=== PATIENT | male | born 1930 | race Caucasian/White ===

== ENCOUNTER 2017-01-28 09:25 | Emergency (ER) | payer MEDICARE ==
[2017-01-28 09:52] VITALS: RESP 17
--- NOTE | 2017-01-28 09:52 | ED ---
Extremity Problem HPI - General Chief complaint: Extremity Problem,Nontraumatic Stated complaint: arm pain Time Seen by Provider: 01/28/17 09:40 Source: patient, family, RN notes reviewed Mode of arrival: wheelchair Limitations: no limitations - History of Present Illness Initial comments: Patient is an 86-year-old male presents to the emergency room for evaluation of left arm bruising and pain. Patient has a history of dementia. Patient's stated patient has railings on the side of his bed and thinks that he ran his arm into one of them. Patient's states that she noticed the bruising yesterday. Patient's states that patient has been complaining of pain all day yesterday and this morning. Patient's states that she thought patient' s arm should be evaluated. Patient's states patient takes aspirin daily. - Related Data Home Medications Medication Instructions Recorded Confirmed Aspirin EC [Ecotrin Low Dose] 81 mg PO DAILY 01/28/17 01/28/17 Filgrastim Sndz [Neupogen] 480 mcg SQ TUFR 01/28/17 01/28/17 Memantine [Namenda] 10 mg PO BID 01/28/17 01/28/17 OXcarbazepine [Trileptal] 150 mg PO BID 01/28/17 01/28/17 [place]-3 Fatty Acids/Fish Oil [Fish 1 cap PO DAILY 01/28/17 01/28/17 Oil 1,000 mg Capsule] Omeprazole [PriLOSEC] 20 mg PO AC-BID 01/28/17 01/28/17 Pravastatin Sodium [Pravachol] 40 mg PO DAILY 01/28/17 01/28/17 Tamsulosin [Flomax] 0.4 mg PO DAILY 01/28/17 01/28/17 amLODIPine [Norvasc] 5 mg PO DAILY 01/28/17 01/28/17 Allergies Allergy/AdvReac Type Severity Reaction Status Date / Time pregabalin [From Lyrica] Allergy Unknown Verified 01/28/17 10:19 Review of Systems ROS Statement: Those systems with pertinent positive or pertinent negative responses have been documented in the HPI. ROS Other: All systems not noted in ROS Statement are negative. 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 Limitations: no limitations General appearance: alert, in no apparent distress Head exam: Present: atraumatic, normocephalic, normal inspection Eye exam: Present: normal appearance ENT exam: Present: normal exam Neck exam: Present: normal inspection Respiratory exam: Present: normal lung sounds bilaterally. Absent: respiratory distress Cardiovascular Exam: Present: regular rate, normal rhythm, normal heart sounds Left Elbow exam: Present: normal inspection, full ROM. Absent: tenderness Forearm Wrist exam: Present: ecchymosis (Large area of ecchymosis over her proximal and midforearm there is a superficial hematoma noted over the area that is about 2 cm in width.) Hand Wrist exam: Present: normal inspection, full ROM. Absent: tenderness Neuro motor exam: Present: wrist extension intact, thumb opposition intact, thumb IP flexion intact, thumb adduction intact, fingers 2-5 abduction intact Vascular: Present: normal capillary refill (Capillary refill less than 2 seconds ), radial pulse (2+), ulnar pulse (2+) Back exam: Present: normal inspection Neurological exam: Present: alert, oriented X3, CN II-XII intact, normal gait Psychiatric exam: Present: normal affect, normal mood Skin exam: Present: warm, dry. Absent: rash Course Vital Signs 01/28/17 01/28/17 01/28/17 09:26 09:48 10:54 Temperature 97.2 F L 98.4 F 98.1 F Pulse Rate 60 60 63 Respiratory 18 17 17 Rate Blood Pressure 122/59 133/60 105/54 O2 Sat by Pulse 96 94 L 95 Oximetry Medical Decision Making - Medical Decision Making Patient is a 86-year-old male since emergency room for evaluation of left forearm bruising and pain. X-ray is negative for any acute findings. Patient advised to ice the area and to follow-up with primary care provider for reevaluation. Patient's states she understands everything that was discussed with her. Return parameters discussed. Case discussed with Dr. Long. - Radiology Data Radiology results: report reviewed, image reviewed Disposition Clinical Impression: Hematoma of arm Disposition: HOME SELF-CARE Condition: Good Instructions: Hematoma (ED) Additional Instructions: Apply ice on and off for 20 minutes at a time. Please follow up with primary care provider in 1-2 days. If any new symptom arises or symptoms worsen, return to ER as soon as possible. Referrals: Kelly Gong III, MD [Primary Care Provider] - 1-2 days Time of Disposition: 10:47
--- NOTE | 2017-01-28 10:08 | XR ---
EXAMINATION TYPE: XR forearm LT DATE OF EXAM: 01/28/2017 COMPARISON: NONE HISTORY: Pain Two views of the forearm demonstrate that the osseous structures appear to be . There is no acute fr acture or dislocation. Arthropathy of the radiocarpal and first carpometacarpal joint. Chondrocalcin osis noted. Small olecranon spur noted. IMPRESSION: 1. No acute fracture or dislocation
[2017-01-28 10:55] VITALS: BP 105/54; PULSE 63; TEMP 98.1
== END 2017-01-28 10:55 | disposition home or self-care (01) ==
LOC: EC 09:25
DX: S50.12XA Contusion of left forearm, initial encounter (principal); E78.5 Hyperlipidemia, unspecified; I10 Essential (primary) hypertension; I25.10 Atherosclerotic heart disease of native coronary artery without angina pectoris; K21.9 Gastro-esophageal reflux disease without esophagitis; F03.90 Unspecified dementia, unspecified severity, without behavioral disturbance, psychotic disturbance, mood disturbance, and anxiety; N42.9 Disorder of prostate, unspecified; D72.819 Decreased white blood cell count, unspecified; Z87.891 Personal history of nicotine dependence; Z79.82 Long term (current) use of aspirin; Z79.899 Other long term (current) drug therapy; Z88.8 Allergy status to other drugs, medicaments and biological substances; Z86.79 Personal history of other diseases of the circulatory system; X58.XXXA Exposure to other specified factors, initial encounter
CPT/HCPCS: 99283

== ENCOUNTER 2017-05-19 13:10 | Inpatient (IN) | payer MEDICARE ==
[2017-05-19] MEDS ORDERED: SODIUM CHLORIDE 0.9% 500 ML IV STA (14:23)
[2017-05-19 15:08] LABS: Basophils % (A) 0 %; CH 31.4; CHCM 29.7; Eosinophils % (A) 0 %; HCT 22.8 % (39.0-53.0); HDW 2.22; HGB 7.1 gm/dL (13.0-17.5); Hypochromasia Marked; Luc # (Auto) 0.18; Luc % (Auto) 1; Lymphocytes # (A) 0.9 k/uL (1.0-4.8); Lymphocytes % (A) 6 %; MCH 33.2 pg (25.0-35.0); MCHC 31.1 g/dL (31.0-37.0); MCV 106.6 fL (80.0-100.0); Macrocytosis Moderate; Mean Platelet Volume 8.9; Monocytes % (A) 7 %; Neutrophils # (A) 12.8 k/uL (1.3-7.7); Neutrophils % (A) 86 %; RBC 2.14 m/uL (4.30-5.90); RDW 15.2 % (11.5-15.5); WBC 14.9 k/uL (3.8-10.6)
[2017-05-19 15:15] LABS: ALT 25 U/L (21-72); AST 13 U/L (17-59); Alkaline Phosphatase 39 U/L (38-126); Amylase <30 U/L (30-110); Anion Gap 5 mmol/L; Blood Urea Nitrogen 11 mg/dL (9-20); Carbon Dioxide 11 mmol/L (22-30); Non-African American GFR(MDRD) >60 (>60 ml/min/1.73 sqM); Sodium 145 mmol/L (137-145); Total Bilirubin 0.2 mg/dL (0.2-1.3); Total Protein 2.6 g/dL (6.3-8.2)
[2017-05-19 15:20] LABS: Chloride 129 mmol/L (98-107); Potassium 1.8 mmol/L (3.5-5.1)
[2017-05-19 15:21] LABS: Calcium 3.6 mg/dL (8.4-10.2); Glucose 39 mg/dL (74-99)
[2017-05-19 15:28] LABS: Glucose,Whole Blood 83 mg/dL (75-99)
[2017-05-19 15:36] LABS: Manual Review Performed
[2017-05-19 16:02] LABS: Amorphous Sediment,Urine Occasional /hpf; Appearance,Urine Clear (Clear); Bilirubin,Urine Negative (Negative); Glucose,Urine (UA) Negative (Negative); Ketones,Urine Negative (Negative); Leukocyte Esterase,Urine Large (Negative); Mucus,Urine Moderate /hpf; Nitrite,Urine Negative (Negative); Particle Count 6117; Protein,Urine 1+ (Negative); RBC,Urine 12 /hpf (0-5); Specific Gravity,Urine 1.022 (1.001-1.035); Squamous Epithelial Cell,Urine 1 /hpf (0-4); UA Billing (MACRO vs. MICRO) MICRO; WBC,Urine 77 /hpf (0-5)
[2017-05-19 16:09] LABS: CH 32.2; CHCM 31.8; HCT 42.1 % (39.0-53.0); HDW 2.28; MCH 32.5 pg (25.0-35.0); MCHC 31.8 g/dL (31.0-37.0); MCV 102.2 fL (80.0-100.0); Macrocytosis Slight; Mean Platelet Volume 9.4; RBC 4.12 m/uL (4.30-5.90); RDW 15.6 % (11.5-15.5); WBC (Perox) 25.89
[2017-05-19 16:13] LABS: HGB 13.4 gm/dL (13.0-17.5)
[2017-05-19 16:15] LABS: WBC 25.1 k/uL (3.8-10.6)
--- NOTE | 2017-05-19 16:25 | ED ---
General Adult HPI - General Chief complaint: GI Bleed Stated complaint: Hemmorhoids Time Seen by Provider: 05/19/17 14:15 Source: patient, RN notes reviewed Mode of arrival: wheelchair Limitations: no limitations - History of Present Illness Initial comments: 86-year-old male presents emergency department with family chief complaint of rectal pain, diarrhea. Patient is complaining degrees rectally last 2 days with diagnosed with hemorrhoid and describes some pain. 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 Patient has been having nonstop stool and has had several bowel movements and basically has to wear depends at this time. Patient denies any abdominal pain but has some cramping. Patient has a history of dementia and history is mostly given by family. Patient has not been on any recent antibiotics no recent travel. Patient has had some increased confusion from his baseline. The states that he was up to 5 times last night going to the bathroom. - Related Data Home Medications Medication Instructions Recorded Confirmed Aspirin EC [Ecotrin Low Dose] 81 mg PO DAILY 01/28/17 05/19/17 Filgrastim Sndz [Neupogen] 480 mcg SQ TUFR 01/28/17 05/19/17 [place]-3 Fatty Acids/Fish Oil [Fish 1 cap PO DAILY 01/28/17 05/19/17 Oil 1,000 mg Capsule] Omeprazole [PriLOSEC] 20 mg PO AC-BID 01/28/17 05/19/17 Pravastatin Sodium [Pravachol] 40 mg PO DAILY 01/28/17 05/19/17 Tamsulosin [Flomax] 0.4 mg PO DAILY 01/28/17 05/19/17 amLODIPine [Norvasc] 5 mg PO DAILY 01/28/17 05/19/17 Coconut Oil 1 tab PO DAILY 05/19/17 05/19/17 Donepezil 23mg 23 mg PO HS 05/19/17 05/19/17 Melatonin 10 mg PO HS 05/19/17 05/19/17 Memantine [Namenda] 5 mg PO BID 05/19/17 05/19/17 Multivitamins, Thera [Multivitamin 1 tab PO DAILY 05/19/17 05/19/17 (formulary)] traZODone HCL 50 mg PO HS PRN 05/19/17 05/19/17 Allergies Allergy/AdvReac Type Severity Reaction Status Date / Time pregabalin [From Lyrica] Allergy Unknown Verified 05/19/17 14:56 Review of Systems ROS Statement: Those systems with pertinent positive or pertinent negative responses have been documented in the HPI. ROS Other: All systems not noted in ROS Statement are negative. 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 Absent: respiratory distress, wheezes, rales, rhonchi, stridor Cardiovascular Exam: Present: regular rate, normal rhythm, normal heart sounds. Absent: systolic murmur, diastolic murmur, rubs, gallop, clicks GI/Abdominal exam: Present: soft, normal bowel sounds. Absent: distended, tenderness, guarding, rebound, rigid External exam: Present: other (Stool is presents on skin and mild erythema and small hemorrhoid noted). Absent: normal external exam Skin exam: Present: warm, dry, intact, normal color. Absent: rash Course Vital Signs 05/19/17 13:17 Temperature 97 F L Pulse Rate 66 Respiratory 16 Rate Blood Pressure 134/62 O2 Sat by Pulse 97 Oximetry Medical Decision Making - Lab Data Result diagrams: 05/19/17 16:00 05/19/17 16:00 Lab Results 05/19/17 05/19/17 05/19/17 Range/Units 14:50 14:50 15:23 WBC 14.9 H (3.8-10.6) k/uL RBC 2.14 L (4.30-5.90) m/uL Hgb 7.1 L (13.0-17.5) gm/dL Hct 22.8 L (39.0-53.0) % MCV 106.6 H (80.0-100.0) fL MCH 33.2 (25.0-35.0) pg MCHC 31.1 (31.0-37.0) g/dL RDW 15.2 (11.5-15.5) % Plt Count 60 L (150-450) k/uL Neutrophils % 86 % Neutrophils % (Manual) % Band Neutrophils % % Lymphocytes % 6 % Lymphocytes % (Manual) % Monocytes % 7 % Monocytes % (Manual) % Eosinophils % 0 % Basophils % 0 % Neutrophils # 12.8 H (1.3-7.7) k/uL Neutrophils # (Manual) (1.3-7.7) k/uL Lymphocytes # 0.9 L (1.0-4.8) k/uL Lymphocytes # (Manual) (1.0-4.8) k/uL Monocytes # 1.0 (0-1.0) k/uL Monocytes # (Manual) (0-1.0) k/uL Eosinophils # 0.0 (0-0.7) k/uL Basophils # 0.0 (0-0.2) k/uL Nucleated RBCs (0-0) /100 WBC Manual Slide Review Performed Polychromasia Hypochromasia Marked Anisocytosis (manual) Macrocytosis Moderate Sodium 145 (137-145) mmol/L Potassium 1.8 L* (3.5-5.1) mmol/L Chloride 129 H* (98-107) mmol/L Carbon Dioxide 11 L (22-30) mmol/L Anion Gap 5 mmol/L BUN 11 (9-20) mg/dL Creatinine 0.45 L (0.66-1.25) mg/dL Est GFR (MDRD) Af Amer >60 (>60 ml/min/1.73 sqM) Est GFR (MDRD) Non-Af >60 (>60 ml/min/1.73 sqM) Glucose 39 L* (74-99) mg/dL POC Glucose (mg/dL) 83 (75-99) mg/dL POC Glu Nursing Unit Coordinator ID Bonnie Hercules Calcium 3.6 L* (8.4-10.2) mg/dL Total Bilirubin 0.2 (0.2-1.3) mg/dL AST 13 L (17-59) U/L ALT 25 (21-72) U/L Alkaline Phosphatase 39 (38-126) U/L Total Protein 2.6 L (6.3-8.2) g/dL Albumin 1.3 L (3.5-5.0) g/dL Amylase <30 L (30-110) U/L Lipase 11 L (23-300) U/L Urine Color Urine Appearance (Clear) Urine pH (5.0-8.0) Ur Specific [place] (1.001-1.035) Urine Protein (Negative) Urine Glucose (UA) (Negative) Urine Ketones (Negative) Urine Blood (Negative) Urine Nitrite (Negative) Urine Bilirubin (Negative) Urine Urobilinogen (<2.0) mg/dL Ur Leukocyte Esterase (Negative) Urine RBC (0-5) /hpf Urine WBC (0-5) /hpf Ur Squamous Epith Cells (0-4) /hpf Amorphous Sediment (None) /hpf Hyaline Casts (0-2) /lpf Urine Mucus (None) /hpf 05/19/17 05/19/17 05/19/17 Range/Units 15:44 16:00 16:00 WBC 25.1 H* (3.8-10.6) k/uL RBC 4.12 L (4.30-5.90) m/uL Hgb 13.4 D (13.0-17.5) gm/dL Hct 42.1 (39.0-53.0) % MCV 102.2 H (80.0-100.0) fL MCH 32.5 (25.0-35.0) pg MCHC 31.8 (31.0-37.0) g/dL RDW 15.6 H (11.5-15.5) % Plt Count 100 L D (150-450) k/uL Neutrophils % % Neutrophils % (Manual) 89 % Band Neutrophils % 4 % Lymphocytes % % Lymphocytes % (Manual) 6 % Monocytes % % Monocytes % (Manual) 2 % Eosinophils % % Basophils % % Neutrophils # (1.3-7.7) k/uL Neutrophils # (Manual) 23.30 H (1.3-7.7) k/uL Lymphocytes # (1.0-4.8) k/uL Lymphocytes # (Manual) 1.51 (1.0-4.8) k/uL Monocytes # (0-1.0) k/uL Monocytes # (Manual) 0.50 (0-1.0) k/uL Eosinophils # (0-0.7) k/uL Basophils # (0-0.2) k/uL Nucleated RBCs 0 (0-0) /100 WBC Manual Slide Review Performed Polychromasia Present Hypochromasia Anisocytosis (manual) Present Macrocytosis Slight Sodium 142 (137-145) mmol/L Potassium 4.4 (3.5-5.1) mmol/L Chloride 106 (98-107) mmol/L Carbon Dioxide 25 (22-30) mmol/L Anion Gap 11 mmol/L BUN 23 H (9-20) mg/dL Creatinine 1.07 (0.66-1.25) mg/dL Est GFR (MDRD) Af Amer >60 (>60 ml/min/1.73 sqM) Est GFR (MDRD) Non-Af >60 (>60 ml/min/1.73 sqM) Glucose 81 (74-99) mg/dL POC Glucose (mg/dL) (75-99) mg/dL POC Glu Nursing Unit Coordinator ID Calcium 9.5 (8.4-10.2) mg/dL Total Bilirubin 0.9 (0.2-1.3) mg/dL AST 37 (17-59) U/L ALT 40 (21-72) U/L Alkaline Phosphatase 118 (38-126) U/L Total Protein 6.8 (6.3-8.2) g/dL Albumin 4.3 (3.5-5.0) g/dL Amylase (30-110) U/L Lipase (23-300) U/L Urine Color Yellow Urine Appearance Clear (Clear) Urine pH 6.0 (5.0-8.0) Ur Specific [place] 1.022 (1.001-1.035) Urine Protein 1+ H (Negative) Urine Glucose (UA) Negative (Negative) Urine Ketones Negative (Negative) Urine Blood Negative (Negative) Urine Nitrite Negative (Negative) Urine Bilirubin Negative (Negative) Urine Urobilinogen 3.0 (<2.0) mg/dL Ur Leukocyte Esterase Large H (Negative) Urine RBC 12 H (0-5) /hpf Urine WBC 77 H (0-5) /hpf Ur Squamous Epith Cells 1 (0-4) /hpf Amorphous Sediment Occasional H (None) /hpf Hyaline Casts 5 H (0-2) /lpf Urine Mucus Moderate H (None) /hpf Disposition Clinical Impression: UTI (urinary tract infection), Diarrhea, Rectal pain, Confusion Disposition: ADMITTED IP TO THIS HOSP Condition: Fair Referrals: Kelly Gong III, MD [Primary Care Provider] - 1-2 days
[2017-05-19 16:39] LABS: AST 37 U/L (17-59); Alkaline Phosphatase 118 U/L (38-126); Blood Urea Nitrogen 23 mg/dL (9-20); Calcium 9.5 mg/dL (8.4-10.2); Carbon Dioxide 25 mmol/L (22-30); Chloride 106 mmol/L (98-107); Glucose 81 mg/dL (74-99); Non-African American GFR(MDRD) >60 (>60 ml/min/1.73 sqM); Total Bilirubin 0.9 mg/dL (0.2-1.3); Total Protein 6.8 g/dL (6.3-8.2)
[2017-05-19] MEDS ORDERED: LEVOFLOXACIN 750MG-D5W PMX 750 MG in DEXTROSE/WATER 1 150ML.BAG IVPB STA (16:48)
[2017-05-19 16:54] LABS: ALT 40 U/L (21-72); Anion Gap 11 mmol/L; Potassium 4.4 mmol/L (3.5-5.1); Sodium 142 mmol/L (137-145)
--- NOTE | 2017-05-19 16:57 | XR ---
EXAMINATION TYPE: XR KUB DATE OF EXAM: 05/19/2017 COMPARISON: NONE HISTORY: Abdominal pain TECHNIQUE: 2 views FINDINGS: There is no sign of intestinal obstruction or pneumoperitoneum. Fecal pattern is normal. Th ere is no sign of a mass. There are no pathologic calcifications over the kidneys. IMPRESSION: Nonacute abdomen.
[2017-05-19 17:04] LABS: Add Differential Manual Differential
[2017-05-19 17:07] LABS: Band Neutrophils % 4 %; Manual Review Performed; Nucleated Red Blood Cells 0 /100 WBC (0-0); Polychromasia Present; Total Cells Counted 200
[2017-05-19] MEDS ORDERED: NALOXONE 0.4 MG/ML 1 ML VIAL IV PRN (17:09)
[2017-05-19] MEDS ORDERED: ONDANSETRON 4 MG/2 ML VIAL IVP PRN (17:09)
[2017-05-19 19:04] VITALS: BMI 25.0
[2017-05-19] MEDS ORDERED: traZODone HCL 50 MG TAB PO PRN (22:13)
[2017-05-19] MEDS: HALOPERIDOL LACTATE 5 MG/ML 1 ML VIAL IM PRN (22:18)
[2017-05-19] MEDS: QUEtiapine 25 MG TAB PO SCH (22:18)
[2017-05-19] MEDS: LIDOCAINE 4% CREAM 5 GM TUBE TOPICAL SCH ×2 (23:31→23:33)
[2017-05-19] MEDS: MEMANTINE 5 MG TAB PO SCH (23:32)
[2017-05-19] MEDS: DONEPEZIL 10 MG TAB PO SCH (23:32)
[2017-05-20] MEDS ORDERED: NON-FORMULARY DRUG (Omega-3 Fatty Acids/Fish Oil [Fish Oil 1,000 Mg Capsule] 1 CAP) PO SCH (09:00)
[2017-05-20] MEDS: LIDOCAINE 4% CREAM 5 GM TUBE TOPICAL SCH ×7 (10:00→21:09)
[2017-05-20] MEDS: PANTOPRAZOLE 40 MG TABLET PO SCH ×2 (10:25→17:47)
[2017-05-20] MEDS: TAMSULOSIN 0.4 MG CAP.ER.24H PO SCH (10:25)
[2017-05-20] MEDS: MEMANTINE 5 MG TAB PO SCH ×2 (10:25→21:09)
[2017-05-20] MEDS: amLODIPine 5 MG TAB PO SCH (10:25)
[2017-05-20] MEDS: ASPIRIN 81 MG PO SCH (10:25)
[2017-05-20] MEDS: MULTIVITAMINS, THERA 1 EACH TAB PO SCH (10:26)
[2017-05-20] MEDS: PRAVASTATIN SODIUM 40 MG TAB PO SCH (10:26)
[2017-05-20] MEDS: HYDROcodone/APAP 5-325MG 1 EACH TAB PO PRN ×2 (11:02→19:37)
--- NOTE | 2017-05-20 16:49 | HP ---
HISTORY AND PHYSICAL DATE OF SERVICE: 05/20/17 CHIEF COMPLAINTS: Gastrointestinal bleed as well as urinary tract infection. HISTORY: This 86-year-old gentleman with a past medical history of multiple medical problems, including CAD, history of dementia, history of GERD, hypertension, hyperlipidemia, being followed by Dr. Gong in the outpatient setting, the patient was apparently noted to have been to the bathroom 35 times last night. The patient also had some GI bleed and some blood in the stool and the patient was taken to [facility] and admitted to the hospital for further evaluation and treatment. Hemoglobin was found to be 7.1, which could be an artifact because of the the next day's hemoglobin 13.2 , white count is elevated at 25.1 though. There is no history of any fever, rigors or chills. No history of any trauma. Patient unable to give a coherent history. Most of the history taken from my discussion with the daughter at the bedside at this time. There is no history of trauma. PAST MEDICAL HISTORY: 1. History of CAD. 2. History of dementia. 3. GERD. MEDICATIONS: Prior to admission include: 1. Trazodone 50 mg q.h.s. p.r.n. 2. Norvasc 5 mg daily. 3. Flomax 0.4 daily. 4. Pravachol 40 mg daily. 5. Prilosec 20 mg before meals b.i.d. 6. [place]-3 fatty acids daily. 7. Multivitamins one p.o. daily. 8. Namenda 5 mg p.o. b.i.d. 10.Neupogen 480 mcg subcu Wednesday. 11.Aricept 23 mg q.h.s. 13.Ecotrin 81 mg p.o. daily. ALLERGIES: LYRICA. FAMILY HISTORY: History of CAD, Parkinson's in the family. SOCIAL HISTORY: No history of smoking. No history of alcohol intake. REVIEW OF SYSTEMS: Could not be taken at length because the patient has dementia and mental status changes. PHYSICAL EXAM: Patient is alert and oriented times one. Pulse 53, blood pressure 130/70, respiration 20, temperature 97.4, pulse ox 98% on room air. HEENT conjunctivae normal. Oral mucosa moist. Neck is no jugular venous distention. No carotid bruit. No lymph node enlargement. Cardiovascular system: S1, S2 muffled. No S3, no S4. Respiratory : Breath sounds diminished in the bases. No rhonchi. No crackles. ABDOMEN: Soft, nontender. No mass palpable. Legs no edema. No swelling. Nervous system: Higher functions as mentioned earlier. Moves all 4 limbs. No focal motor or sensory deficits. Lymphatics: No lymph nodes palpable in the neck, axillae or groin. Skin: No ulcer, rash or bleeding. Joints: No active deforming arthropathy. LABS: Labs are at this time shows WBC 25.1 and platelets 100, sodium 40, potassium 4.4. ASSESSMENT: 1. Urinary tract infection with sepsis. 2. Change in mental status. Metabolic encephalopathy. Chronic. 3. History of gastrointestinal bleed without any overt evidence of anemia. 4. History of coronary artery disease. 5. History of gastroesophageal reflux disease. 6. Hypertension. 7. Hyperlipidemia. 8. History of coronary artery disease, coronary artery bypass grafting. 9. Leukopenia on Neupogen shots. 10.NO CODE, NO CPR, NO VENT. RECOMMENDATIONS AND DISCUSSION: In this 86-year-old gentleman who presented with multiple complex medical issues , we will monitor the patient closely. Continue the current medications, continue management and symptomatic treatment. Otherwise resume the home medications. I would recommend to continue current medications, management. Continue with broad- spectrum IV antibiotics. Follow the cultures. The patient is on Levaquin. DVT prophylaxis. Guarded prognosis because of the multiple complex medical issues and further recommendations to follow. Discussed with the family at length. We will continue to monitor. Prognosis guarded. Further recommendations to follow. See orders for further details. MMODL / IJN: [id number] / MTDD
[2017-05-20] MEDS ORDERED: LEVOFLOXACIN 750MG-D5W PMX 750 MG in DEXTROSE/WATER 1 150ML.BAG IVPB SCH (17:00)
[2017-05-20] MEDS: DONEPEZIL 10 MG TAB PO SCH (21:09)
[2017-05-20] MEDS: QUEtiapine 25 MG TAB PO SCH (21:09)
[2017-05-20] MEDS: MELATONIN 5 MG TABLET PO SCH (21:09)
[2017-05-20] MEDS: HEPARIN SODIUM,PORCINE 5,000 UNIT/ML 1 ML VIAL SQ SCH (21:09)
[2017-05-20] MEDS: HALOPERIDOL LACTATE 5 MG/ML 1 ML VIAL IM PRN (22:49)
[2017-05-21] MEDS: HALOPERIDOL LACTATE 5 MG/ML 1 ML VIAL IM PRN (03:07)
[2017-05-21] MEDS: amLODIPine 5 MG TAB PO SCH (07:29)
[2017-05-21] MEDS: HEPARIN SODIUM,PORCINE 5,000 UNIT/ML 1 ML VIAL SQ SCH ×2 (07:29→20:41)
[2017-05-21] MEDS: PANTOPRAZOLE 40 MG TABLET PO SCH ×2 (07:29→16:32)
[2017-05-21] MEDS: ASPIRIN 81 MG PO SCH (07:30)
[2017-05-21] MEDS: TAMSULOSIN 0.4 MG CAP.ER.24H PO SCH (07:30)
[2017-05-21] MEDS: LIDOCAINE 4% CREAM 5 GM TUBE TOPICAL SCH ×3 (07:30→18:36)
[2017-05-21] MEDS: MULTIVITAMINS, THERA 1 EACH TAB PO SCH (07:30)
[2017-05-21] MEDS: PRAVASTATIN SODIUM 40 MG TAB PO SCH (07:30)
[2017-05-21] MEDS: MEMANTINE 5 MG TAB PO SCH ×2 (07:30→20:41)
[2017-05-21 10:18] LABS: Basophils % (A) 0 %; CH 32.6; Eosinophils % (A) 0 %; HCT 45.2 % (39.0-53.0); HDW 2.25; HGB 13.9 gm/dL (13.0-17.5); Luc # (Auto) 0.16; Luc % (Auto) 3; Lymphocytes % (A) 20 %; MCH 31.6 pg (25.0-35.0); MCHC 30.8 g/dL (31.0-37.0); MCV 102.5 fL (80.0-100.0); Macrocytosis Slight; Mean Platelet Volume 9.5; Monocytes # (A) 0.7 k/uL (0-1.0); Monocytes % (A) 15 %; Neutrophils # (A) 2.8 k/uL (1.3-7.7); Neutrophils % (A) 60 %; RBC 4.41 m/uL (4.30-5.90); RDW 15.8 % (11.5-15.5); WBC 4.7 k/uL (3.8-10.6); WBC (Perox) 4.45
[2017-05-21 10:30] LABS: Anion Gap 16 mmol/L; Blood Urea Nitrogen 15 mg/dL (9-20); Calcium 9.1 mg/dL (8.4-10.2); Carbon Dioxide 22 mmol/L (22-30); Chloride 105 mmol/L (98-107); Glucose 103 mg/dL (74-99); Non-African American GFR(MDRD) >60 (>60 ml/min/1.73 sqM); Potassium 3.5 mmol/L (3.5-5.1); Sodium 143 mmol/L (137-145)
[2017-05-21] MEDS: FILGRASTIM-SNDZ 480 MCG/0.8 ML SYRINGE SQ SCH (12:55)
[2017-05-21] MEDS: LEVOFLOXACIN 750 MG TAB PO SCH (16:32)
[2017-05-21] MEDS ORDERED: Potassium Replacement Protocol 1 EACH MISC MISCELLANE PRN (17:16)
[2017-05-21] MEDS ORDERED: Magnesium Replacement Protocol 1 EACH MISC MISCELLANE PRN (17:18)
--- NOTE | 2017-05-21 17:26 | P.PN ---
Subjective Progress Note Date: 05/21/17 Progress Note being dictated for Dr. Hui. Interval history: This 86-year-old gentleman admitted with acute UTI with sepsis , acute metabolic encephalopathy and multiple other medical issues. Maintained on IV antibiotics. Significant clinical improvement, afebrile, WBC normalized .Confusion persist, complaining of urgency and frequency. at bedside, stating patient has significant issues with hemorrhoids, requesting surgical evaluation. Past medical history reviewed. Unable to perform review of systems given patient's confusion. Active Medications Generic Name Dose Route Start Last Admin Trade Name Freq PRN Reason Stop Dose Admin Hydrocodone Bitart/Acetaminophen 1 each 05/19/17 17:09 05/20/17 19:37 [place] 5-325 PO 1 each Q4HR PRN Administration Moderate Pain Amlodipine Besylate 5 mg 05/20/17 09:00 05/21/17 07:29 Norvasc PO 5 mg DAILY SAMMI Administration Aspirin 81 mg 05/20/17 09:00 05/21/17 07:30 Aspirin PO 81 mg DAILY SAMMI Administration Donepezil HCl 10 mg 05/19/17 22:15 05/20/17 21:09 Aricept PO 10 mg HS SAMMI Administration Filgrastim 480 mcg 05/21/17 12:00 05/21/17 12:55 Zarxio SQ 480 mcg TUFR SAMMI Administration Haloperidol Lactate 1 mg 05/19/17 21:53 05/21/17 03:07 Haldol IM 1 mg Q4HR PRN Administration Agitation or Acute Psychosis Heparin Sodium (Porcine) 5,000 unit 05/20/17 21:00 05/21/17 07:29 Heparin SQ 5,000 unit Q12HR SAMMI Administration Levofloxacin 750 mg 05/21/17 17:00 05/21/17 16:32 Levaquin PO 750 mg Q24H SAMMI Administration Lidocaine HCl 1 applic 05/19/17 18:00 05/21/17 12:55 Lmx 4 TOPICAL 05/21/17 18:01 1 applic QID SAMMI Administration Melatonin 10 mg 05/20/17 21:00 05/20/17 21:09 Melatonin PO 10 mg HS SAMMI Administration Memantine 5 mg 05/19/17 22:15 05/21/17 07:30 Namenda PO 5 mg BID SAMMI Administration Miscellaneous Information 1 each 05/21/17 17:16 Potassium Per Protocol MISCELLANE DAILY PRN Per Protocol Protocol Miscellaneous Information 1 each 05/21/17 17:18 Magnesium Per Protocol MISCELLANE DAILY PRN Per Protocol Protocol Multivitamins 1 each 05/20/17 09:00 05/21/17 07:30 Theragran PO 1 each DAILY SAMMI Administration Naloxone HCl 0.2 mg 05/19/17 17:09 Narcan IV Q2M PRN Opioid Reversal Ondansetron HCl 4 mg 05/19/17 17:09 Zofran IVP Q8HR PRN Nausea And Vomiting Pantoprazole Sodium 40 mg 05/20/17 07:30 05/21/17 16:32 Protonix PO 40 mg AC-BID SAMMI Administration Pravastatin Sodium 40 mg 05/20/17 09:00 05/21/17 07:30 Pravachol PO 40 mg DAILY SAMMI Administration Quetiapine Fumarate 25 mg 05/19/17 22:00 05/20/17 21:09 Seroquel PO 25 mg HS SAMMI Administration Tamsulosin HCl 0.4 mg 05/20/17 09:00 05/21/17 07:30 Flomax PO 0.4 mg DAILY SAMMI Administration Trazodone HCl 50 mg 05/19/17 22:13 Desyrel PO HS PRN Insomnia Objective - Vital Signs Vital signs: Vital Signs Temp 96.5 F L 05/21/17 07:00 Pulse 80 05/21/17 07:00 Resp 18 05/21/17 07:00 BP 167/86 05/21/17 07:00 Pulse Ox 94 L 05/21/17 07:00 Intake & Output 05/20/17 05/21/17 05/21/17 18:59 06:59 18:59 Output Total 55 112 Balance -55 -112 Weight 78.92 kg Output: Urine 55 Post Void Residual 112 Other: Voiding Method Toilet Toilet Toilet # Voids 20 5 5 # Bowel Movements 1 1 - Exam PHYSICAL EXAM: VITAL SIGNS: As above GENERAL: Sitting up in bed, confused, agitated HEENT: Conjunctivae normal. eyes normal. NECK: No JVD. No thyroid enlargement. No LNs CARDIOVASCULAR: S1, S2 muffled. No murmur RESPIRATION: Breath sounds diminished in the bases. No rhonchi or crackles. No bronchial breathing. ABDOMEN: Soft, nontender . No guarding. no masses palpable.Bowel sounds heard. LEGS: No edema. no swelling PSYCHIATRY: Alert and oriented -2, confused, cooperative l. NERVOUS SYSTEM: Cranial N 2-12 grossly normal. Moves all 4 limbs. Diffuse weakness No focal deficits. No sensory deficit. Skin: no ulcer no rash Joints: No active swelling. No inflammation. Lymphatic system. No LN neck axilla or groin. - Labs CBC & Chem 7: 05/21/17 08:52 05/21/17 08:52 Labs: Abnormal Lab Results - Last 24 Hours (Table) 05/21/17 05/21/17 Range/Units 08:52 08:52 MCV 102.5 H (80.0-100.0) fL MCHC 30.8 L (31.0-37.0) g/dL RDW 15.8 H (11.5-15.5) % Plt Count 108 L (150-450) k/uL Glucose 103 H (74-99) mg/dL Microbiology - Last 24 Hours (Table) 05/19/17 15:44 Urine Culture - Final Urine,Voided Assessment and Plan Plan: 1. [ Acute UTI with septic]. 2. [ Acute on chronic metabolic encephalopathy with change in mental state]. 3. Hemorrhoids]. 4. [CAD 5. [ Leukopenia on Neupogen]. Plan: Continue on current medication regime , GI and DVT prophylaxis, monitoring and symptomatic treatment. Maintain IV antibiotics. Surgical evaluation of hemorrhoids per family request. Moved patient to window bed,open blinds to facilitate orientation, improved sensorium. Close monitoring of electrolytes with repeat labs ordered for a.m. The impression and plan of care has been dictated as directed. : I performed a history and examination of this patient, discussed the same with the dictator. I agree with the dictator's note ,documented as a scribe. Any additional findings or plans will be noted.
[2017-05-21] MEDS: MELATONIN 5 MG TABLET PO SCH (20:41)
[2017-05-21] MEDS: DONEPEZIL 10 MG TAB PO SCH (20:41)
[2017-05-21] MEDS: QUEtiapine 25 MG TAB PO SCH (20:41)
[2017-05-22 08:51] LABS: Anion Gap 14 mmol/L; Blood Urea Nitrogen 16 mg/dL (9-20); CH 32.9; CHCM 32.3; Calcium 9.4 mg/dL (8.4-10.2); Carbon Dioxide 23 mmol/L (22-30); Chloride 105 mmol/L (98-107); Glucose 80 mg/dL (74-99); HCT 43.6 % (39.0-53.0); HDW 2.26; HGB 13.9 gm/dL (13.0-17.5); MCH 32.8 pg (25.0-35.0); MCV 102.5 fL (80.0-100.0); Macrocytosis Slight; Magnesium 1.8 mg/dL (1.6-2.3); Mean Platelet Volume 9.3; Non-African American GFR(MDRD) >60 (>60 ml/min/1.73 sqM); Potassium 3.7 mmol/L (3.5-5.1); RBC 4.26 m/uL (4.30-5.90); RDW 15.7 % (11.5-15.5); Sodium 142 mmol/L (137-145); WBC (Perox) 44.99
[2017-05-22 09:04] LABS: WBC 45.7 k/uL (3.8-10.6)
[2017-05-22 09:39] LABS: Add Differential Manual Differential
[2017-05-22 09:40] LABS: Band Neutrophils % 2 %; Manual Review Performed; Nucleated Red Blood Cells 0 /100 WBC (0-0); Total Cells Counted 100
[2017-05-22] MEDS: PANTOPRAZOLE 40 MG TABLET PO SCH ×2 (10:02→17:58)
[2017-05-22] MEDS: MEMANTINE 5 MG TAB PO SCH ×2 (10:03→20:47)
[2017-05-22] MEDS: MULTIVITAMINS, THERA 1 EACH TAB PO SCH (10:03)
[2017-05-22] MEDS: HEPARIN SODIUM,PORCINE 5,000 UNIT/ML 1 ML VIAL SQ SCH ×2 (10:03→20:47)
[2017-05-22] MEDS: ASPIRIN 81 MG PO SCH (10:03)
[2017-05-22] MEDS: amLODIPine 5 MG TAB PO SCH (10:03)
[2017-05-22] MEDS: PRAVASTATIN SODIUM 40 MG TAB PO SCH (10:04)
[2017-05-22] MEDS: TAMSULOSIN 0.4 MG CAP.ER.24H PO SCH (10:04)
[2017-05-22] MEDS: HYDROcodone/APAP 5-325MG 1 EACH TAB PO PRN (10:06)
[2017-05-22 11:16] LABS: CH 32.8; CHCM 32.2; HCT 42.6 % (39.0-53.0); HDW 2.27; HGB 13.7 gm/dL (13.0-17.5); MCH 32.9 pg (25.0-35.0); MCHC 32.2 g/dL (31.0-37.0); MCV 102.3 fL (80.0-100.0); Macrocytosis Slight; Mean Platelet Volume 9.5; RBC 4.16 m/uL (4.30-5.90); RDW 15.5 % (11.5-15.5)
[2017-05-22 11:17] LABS: WBC 43.8 k/uL (3.8-10.6)
[2017-05-22] MEDS ORDERED: IOHEXOL 350 MG/ML 25 ML BOTTLE (ORAL USE) PO PRN (12:24)
--- NOTE | 2017-05-22 16:54 | PN ---
PROGRESS NOTE DATE OF SERVICE: 05/22/2017 INTERVAL HISTORY: This 86-year-old gentleman who was admitted with features of UTI with sepsis also had elevated WBC. Please note the patient also receiving Neupogen. Patient also had discomfort on the rectal area and as well as hemorrhoids and GI bleed also. No chest pain. No palpitations. No fever. PHYSICAL EXAM: Confused. Pulse 82, blood pressure 130/60, respirations 16, temp 98.1, pulse ox 98% room air. HEENT: Conjunctivae normal. NECK: No jugular venous distention. CARDIOVASCULAR: S1, S2. RESPIRATORY: Breath sounds diminished in the bases. A few scattered rhonchi. ABDOMEN: Soft, nontender. NERVOUS SYSTEM: No focal deficits. LABS: WBC 43.8, MCV 102. ASSESSMENT: 1. Acute urinary tract infection with sepsis. 2. Acute on chronic metabolic encephalopathy, change in mental status. 3. Increased WBC, possibly leukocytosis in response to sepsis as well as Neupogen. 4. Hemorrhoids. 5. Coronary artery disease. 6. Leukopenia on Neupogen previously. 7. NO CODE. RECOMMENDATIONS AND DISCUSSION: I recommend to continue current medications and symptomatic treatment. I would also recommend a surgery evaluation. CT scan of the abdomen pelvis will be sought. The cultures will be noted. Guarded prognosis. Further recommendations to follow. MMODL / IJN: [id number] /
[2017-05-22] MEDS: LEVOFLOXACIN 750 MG TAB PO SCH (17:58)
--- NOTE | 2017-05-22 19:27 | CT ---
EXAMINATION TYPE: CT abdomen pelvis wo con DATE OF EXAM: 05/22/2017 COMPARISON: NONE HISTORY: 86-year-old male Patient poor historian. Abdominal pain. CT DLP: 954 mGycm. Automated exposure control for dose reduction was used. TECHNIQUE: Contiguous axial scanning of the abdomen and pelvis without IV contrast. Coronal and sagit carolyn reconstructions performed. FINDINGS: Median sternotomy wires are present. Heart is borderline enlarged without pericardial effusion. Chronic interstitial fibrotic changes and dependent atelectasis at the visualized lung bases. Small hiatal hernia. Noncontrast appearance of the liver, gallbladder, right adrenal gland, spleen, and pancreas show no g ross abnormal mobility. There is a 4.3 cm cyst posterior upper pole right kidney with adjacent punctate 2 mm nonobstructive c alculus. There is a 2.3 cm exophytic hypodense lesion from the medial lower pole right kidney with a density of 10 Hounsfield units. Nonobstructive 3 mm calculus mid pole left kidney. Indeterminate 1.6 cm left adrenal gland nodule with density of 36 Hounsfield units. 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 Mild aneurysm of upper abdominal aorta at 3.1 cm. Bilobed fusiform ectasia of the infrarenal abdominal aorta at 2.6 cm and 2.5 cm. Ectatic right common iliac artery at 1.6 cm. No dilated small bowel, free fluid, or free air. Small fatty inguinal hernia. Scattered nonenlarged and a few borderline to mildly enlarged mesenteric lymph nodes are present michelle uring up to 7 mm, axial image 62. There is moderate stool burden without pericolonic inflammatory change. There is severe rectal distention up to 9.7 cm. This has mass effect on to the prostate gland which i s displaced above the pubic symphysis and to the bladder which is pushed up against the anterior abdo reinaldo wall. There is surrounding mild fat stranding and presacral edema. There is peripheral linear a nd interrupted air located both dependently and nondependently and moderate circumferential wall thic kening at the distal sigmoid just above, axial image 121. Just above this is focal narrowing, axial i mage 120. Prostate gland is enlarged measuring 6.0 cm wide. No pelvic lymphadenopathy seen. Bones: Degenerative changes of the hips and SI joints as well as within the mid to lower lumbar spine . No osseous destructive process. IMPRESSION: 1. Impacted stool severely distending the rectum up to nearly 10 cm. This pushes the prostate gland a rai the pubic symphysis and the bladder against the anterior abdominal wall. 2. Note surrounding inflammatory changes and presacral edema. Findings could be secondary to venous c ongestion due to the degree of distention. ISCHEMIC STERCORAL COLITIS is an additional possibility du e to venous insufficiency. Peripheral air could be trapped between rectal wall and stool or could rep resent pneumatosis and careful clinical correlation is recommended. 3. After relieving the patient's fecal impaction, direct visualization is recommended to exclude neop lasm given the caliber change and moderate annular thickening of the distal sigmoid. 4. 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 5. A 2.3 cm exophytic lesion from the medial lower pole right kidney probably represents a mildly com plicated cyst. Recommend confirmation with renal ultrasound. 6. Indeterminant 1.6 cm left adrenal gland nodule. Statistically, this represents a benign adrenal ad enoma. Six-month follow-up with adrenal mass protocol CT recommended.
[2017-05-22] MEDS: MELATONIN 5 MG TABLET PO SCH (20:47)
[2017-05-22] MEDS: QUEtiapine 25 MG TAB PO SCH (20:47)
[2017-05-22] MEDS: DONEPEZIL 10 MG TAB PO SCH (20:47)
[2017-05-22] MEDS: PIPERACILLIN-TAZOBACTAM 3.375 GM in DEXTROSE/WATER 1 50ML.BAG IVPB SCH (21:22)
[2017-05-23] MEDS: PIPERACILLIN-TAZOBACTAM 3.375 GM in DEXTROSE/WATER 1 50ML.BAG IVPB SCH ×3 (05:17→19:52)
--- NOTE | 2017-05-23 07:16 | CONS ---
CONSULTATION DATE OF SERVICE: 05/22/2017 REASON FOR CONSULTATION: Leukocytosis. HISTORY OF PRESENT ILLNESS: The patient is an 86-year-old male who was brought into the ER at [facility] 05/19/2017 with chief complaints of rectal pain and diarrhea. His symptoms have been going on for what he describes as 2 days prior to visitation to the hospital. The patient subsequently was evaluated by the ER physician. The patient on arrival to the ER was afebrile. He did have elevated white count of 25,000. Patient's UA was positive. The patient has been started on Levaquin. The white count did normalize to 4.7 yesterday, however this morning was 45.7, repeat is 43.8, hence ID was consulted for further recommendation regarding recommendations. The patient remains to be afebrile. He is not a very good historian; however, he denies having any headache. No chest pain. No shortness of breath or cough. No abdominal pain. Per the RN he has not seen any low stools since she has been taking care of him since morning. However, the patient seemed to have problem with the urinary frequency as he has been going to the bathroom every half an hour with minimal amount of urine, but no hematuria has been noticed. A CT abdominal pelvis has been ordered by the admitting physician with the patient was noticed to have abnormality of the rectum with question of ischemic colitis and periphery between the rectal wall and stool some renal stones and fecal impaction. REVIEW OF SYSTEMS: CONSTITUTIONAL: Positive for weakness but no fever. EYES: No complaint. ENT: No complaint. RESPIRATORY: No complaint. CARDIOVASCULAR: No complaint. GENITOURINARY: As per HPI. GASTROINTESTINAL: As per HPI. MUSCULOSKELETAL: No complaint. INTEGUMENTARY: No complaint. PSYCHOLOGICAL: No complaint. ENDOCRINE: No complaint. NEUROLOGICAL: No complaint. PAST MEDICAL HISTORY: Significant for dementia, gastroesophageal reflux disease, coronary artery disease, hypertension, hyperlipidemia, and left breast hypertrophy. PAST SURGICAL HISTORY: Coronary bypass grafting. SOCIAL HISTORY: Remote history of smoking, no drinking or drug use. FAMILY HISTORY: No pertinent findings noticed. ALLERGIES: PREGABALIN. MEDICATIONS: Medication include the patient is currently on [place], aspirin, Aricept, Haldol, heparin, melatonin, Namenda, Theragran, Narcan, Zofran, Protonix, Levaquin, Pravachol, Seroquel, Flomax, and Desyrel. EXAMINATION: Blood pressure 154/74 with a pulse of 79. Temperature of 96.3 He is 94% on room air. General description is a elderly male lying in bed in no distress. No tachypnea or accessory muscles of respiration use. HEENT: Shows no pallor or scleral icterus. Oral mucosa membrane is dry. NECK: Trachea is central. No thyromegaly. LUNGS: Unlabored breathing. Clear to auscultation anteriorly. No wheeze or crackle. HEART: S1, S2. Regular rate and rhythm. ABDOMEN: Soft, no tenderness. No guarding or rigidity. EXTREMITIES: No edema feet. SKIN EXAMINATION: No rash or mass palpable. NEUROLOGICAL: Patient is awake, alert, oriented x2. Mood and affect normal. LABS: Hemoglobin is 13.7, white count of 43.8. His BUN is 16, creatinine 0.94. Liver enzymes are normal. Urine was positive. Stool for C diff is negative. Urine culture so far negative. DIAGNOSTIC IMPRESSION AND PLAN: Patient has significant elevated white count. Patient admitted to the hospital with rectal bleed and also has significantly positive urinalysis with some hypertrophic renal stone and significant abnormality seen of the rectal mucosa, question of possible ischemic colitis to be the likely etiology. Clinically doubt infectious diarrhea or a C diff which is already negative. No clear history of any antibiotic exposure in the recent past. PLAN: 1. Blood cultures x2 stat. 2. Discontinue Levaquin. 3. We will start the patient on Zosyn 3.375 g IV piggyback q.8 hours. 4. Await the general surgery evaluation. 5. We will follow up on the clinical condition and culture to further adjust medication if needed. Thank you for this consultation. Will follow this patient along with you. MMODL / IJN: [id number] /
[2017-05-23 07:51] LABS: Anisocytosis Slight; Basophils % (A) 0 %; CHCM 32.1; Eosinophils % (A) 0 %; HCT 43.9 % (39.0-53.0); HDW 2.28; HGB 13.7 gm/dL (13.0-17.5); Luc # (Auto) 0.26; Luc % (Auto) 2; Lymphocytes # (A) 1.3 k/uL (1.0-4.8); Lymphocytes % (A) 12 %; MCH 32.3 pg (25.0-35.0); MCHC 31.2 g/dL (31.0-37.0); MCV 103.4 fL (80.0-100.0); Macrocytosis Moderate; Mean Platelet Volume 8.9; Monocytes % (A) 10 %; Neutrophils # (A) 8.1 k/uL (1.3-7.7); Neutrophils % (A) 76 %; RBC 4.24 m/uL (4.30-5.90); RDW 16.3 % (11.5-15.5); WBC 10.7 k/uL (3.8-10.6)
[2017-05-23 08:11] LABS: Anion Gap 13 mmol/L; Blood Urea Nitrogen 19 mg/dL (9-20); Calcium 9.5 mg/dL (8.4-10.2); Carbon Dioxide 25 mmol/L (22-30); Chloride 105 mmol/L (98-107); Glucose 90 mg/dL (74-99); Non-African American GFR(MDRD) >60 (>60 ml/min/1.73 sqM); Potassium 3.5 mmol/L (3.5-5.1); Sodium 143 mmol/L (137-145)
[2017-05-23] MEDS: TAMSULOSIN 0.4 MG CAP.ER.24H PO SCH (10:48)
[2017-05-23] MEDS: PANTOPRAZOLE 40 MG TABLET PO SCH ×2 (10:48→19:11)
[2017-05-23] MEDS: PRAVASTATIN SODIUM 40 MG TAB PO SCH (10:48)
[2017-05-23] MEDS: amLODIPine 5 MG TAB PO SCH (10:48)
[2017-05-23] MEDS: MULTIVITAMINS, THERA 1 EACH TAB PO SCH (10:48)
[2017-05-23] MEDS: ASPIRIN 81 MG PO SCH (10:48)
[2017-05-23] MEDS: MEMANTINE 5 MG TAB PO SCH ×2 (10:49→19:53)
[2017-05-23] MEDS: HEPARIN SODIUM,PORCINE 5,000 UNIT/ML 1 ML VIAL SQ SCH ×2 (10:49→19:53)
--- NOTE | 2017-05-23 10:53 | P.GSCN ---
History of Present Illness Consult date: 05/23/17 Reason for Consult: Fecal impaction History of present illness: This 86-year-old male admitted to the hospitalist service. Patient sees Dr. Gong as outpatient. Patient was admitted to the hospital for UTI and increased confusion. Patient developed some rectal pain. His CAT scan shows evidence of fecal impaction. The patient's family states he is not had a bowel movement in over a week. 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, low white counts, Parkinson's Disease History of Any Multi-Drug Resistant Organisms: None Reported Past Surgical History: Coronary Bypass/CABG Past Anesthesia/Blood Transfusion Reactions: No Reported Reaction Past Psychological History: No Psychological Hx Reported Smoking Status: Former smoker Past Alcohol Use History: None Reported Past Drug Use History: None Reported - Past Family History Mother Additional Family Medical History / Comment(s): parkinson Father Family Medical History: Coronary Artery Disease (CAD) Medications and Allergies Home Medications Medication Instructions Recorded Confirmed Type Aspirin EC [Ecotrin Low Dose] 81 mg PO DAILY 01/28/17 05/19/17 History Filgrastim Sndz [Neupogen] 480 mcg SQ TUFR 01/28/17 05/19/17 History Vaughn-3 Fatty Acids/Fish Oil [Fish 1 cap PO DAILY 01/28/17 05/19/17 History Oil 1,000 mg Capsule] Omeprazole [PriLOSEC] 20 mg PO AC-BID 01/28/17 05/19/17 History Pravastatin Sodium [Pravachol] 40 mg PO DAILY 01/28/17 05/19/17 History Tamsulosin [Flomax] 0.4 mg PO DAILY 01/28/17 05/19/17 History amLODIPine [Norvasc] 5 mg PO DAILY 01/28/17 05/19/17 History Coconut Oil 1 tab PO DAILY 05/19/17 05/19/17 History Donepezil 23mg 23 mg PO HS 05/19/17 05/19/17 History Melatonin 10 mg PO HS 05/19/17 05/19/17 History Memantine [Namenda] 5 mg PO BID 05/19/17 05/19/17 History Multivitamins, Thera [Multivitamin 1 tab PO DAILY 05/19/17 05/19/17 History (formulary)] traZODone HCL 50 mg PO HS PRN 05/19/17 05/19/17 History Allergies Allergy/AdvReac Type Severity Reaction Status Date / Time pregabalin [From Lyrica] Allergy Unknown Verified 05/19/17 14:56 Surgical - Exam Vital Signs Temp Pulse Resp BP Pulse Ox 97 F L 66 16 134/62 97 05/19/17 13:17 05/19/17 13:17 05/19/17 13:17 05/19/17 13:17 05/19/17 13:17 - General no distress - Eyes PERRL - Respiratory normal expansion - Cardiovascular Rhythm: regular - Abdomen Abdomen soft. There is no significant tenderness. There is no rebound or guarding. Abdomen: soft - Rectum External hemorrhoids Results - Labs 05/23/17 07:17 05/23/17 07:17 Abnormal Lab Results - Last 24 Hours (Table) 05/22/17 05/23/17 Range/Units 10:29 07:17 WBC 43.8 H* 10.7 H (3.8-10.6) k/uL RBC 4.16 L 4.24 L (4.30-5.90) m/uL MCV 102.3 H 103.4 H (80.0-100.0) fL RDW 16.3 H (11.5-15.5) % Plt Count 106 L 106 L (150-450) k/uL Neutrophils # 8.1 H (1.3-7.7) k/uL Diabetes panel 05/23/17 Range/Units 07:17 Sodium 143 (137-145) mmol/L Potassium 3.5 (3.5-5.1) mmol/L Chloride 105 (98-107) mmol/L Carbon Dioxide 25 (22-30) mmol/L BUN 19 (9-20) mg/dL Creatinine 1.05 (0.66-1.25) mg/dL Glucose 90 (74-99) mg/dL Calcium 9.5 (8.4-10.2) mg/dL Calcium panel 05/23/17 Range/Units 07:17 Calcium 9.5 (8.4-10.2) mg/dL Pituitary panel 05/23/17 Range/Units 07:17 Sodium 143 (137-145) mmol/L Potassium 3.5 (3.5-5.1) mmol/L Chloride 105 (98-107) mmol/L Carbon Dioxide 25 (22-30) mmol/L BUN 19 (9-20) mg/dL Creatinine 1.05 (0.66-1.25) mg/dL Glucose 90 (74-99) mg/dL Calcium 9.5 (8.4-10.2) mg/dL Adrenal panel 05/23/17 Range/Units 07:17 Sodium 143 (137-145) mmol/L Potassium 3.5 (3.5-5.1) mmol/L Chloride 105 (98-107) mmol/L Carbon Dioxide 25 (22-30) mmol/L BUN 19 (9-20) mg/dL Creatinine 1.05 (0.66-1.25) mg/dL Glucose 90 (74-99) mg/dL Calcium 9.5 (8.4-10.2) mg/dL - Imaging CT scan - abdomen: report reviewed (Rectal fecal impaction) Assessment and Plan Plan: Fecal impaction. Patient received soapsuds enemas today. Reevaluate his fecal impaction tomorrow.
[2017-05-23] MEDS: HYDROcodone/APAP 5-325MG 1 EACH TAB PO PRN (11:00)
--- NOTE | 2017-05-23 17:22 | PN ---
PROGRESS NOTE DATE OF SERVICE: 05/23/2017 This 86-year-old gentleman who was admitted with features of UTI with possible sepsis is being closely monitored. Patient is confused. Patient complains of significant weakness also. EXAM: On exam, patient is confused. Pulse 76, blood pressure 130/79, respiration 16, temperature 98 degrees, pulse ox 94% room air. HEENT: Conjunctivae normal. NECK: No jugular venous distention. CARDIOVASCULAR: S1, S2 RESPIRATORY: Breath sounds diminished in the bases. A few rhonchi. ABDOMEN: Soft, nontender. NERVOUS SYSTEM: Diffusely weak. LAB INVESTIGATIONS: WBC 7.7, hemoglobin 13.7. ASSESSMENT: 1. Acute urinary tract infection with sepsis. 2. Acute on chronic metabolic encephalopathy with change in mental status. 3. Increased WBC possible leukocytosis response to sepsis as well as Neupogen. 4. Hemorrhoids. 5. Constipation and as well as rectal pain secondary to constipation. 6. Coronary artery disease. 7. Leukopenia on Neupogen previously. 8. NO CODE, NO CPR, NO VENT. 9. Gait dysfunction. RECOMMENDATIONS AND DISCUSSION: I recommend to continue the current management, continue symptomatic treatment. Otherwise continue the antibiotics. Continue with regimen for constipation per Surgery. Otherwise PT and OT evaluation, possible ECF rehab. Discussed at length with the at the bedside who understands and agrees. Further recommendations to follow. MMODL / IJN: [id number] /
[2017-05-23] MEDS: QUEtiapine 25 MG TAB PO SCH (19:53)
[2017-05-23] MEDS: DONEPEZIL 10 MG TAB PO SCH (19:53)
[2017-05-23] MEDS: MELATONIN 5 MG TABLET PO SCH (19:53)
--- NOTE | 2017-05-23 22:13 | PN ---
PROGRESS NOTE DATE OF SERVICE: 05/23/2017 REASON FOR FOLLOWUP: Leukocytosis, UTI and possible abdominal source. INTERVAL HISTORY: The patient is afebrile, has been breathing comfortably. His main symptom has been urinary frequency and burning. He did not have any bowel movement. Surgery has seen the patient and has been ordered. No nausea, no vomiting. EXAMINATION: Blood pressure 134/71 with a pulse of 82, temperature of 97.9, she is 92% on room air. General description is an elderly male, lying in bed, in no distress. Respiratory system unlabored breathing. Clear to auscultation anteriorly. Heart S1, S2. Regular rate and rhythm. Abdomen soft, no tenderness. LABS: Hemoglobin is 13.7, white count 10.7 with a BUN of 19, creatinine 1.05. Culture so far pending. DIAGNOSTIC IMPRESSION AND PLAN: Patient with leukocytosis. The patient did have a component of urinary tract infection and also stool impaction, possible bowel component. White count did respond to Zosyn, that will be continued. Await resolution of his constipation. Continue supportive care. MMODL / IJN: [id number] /
[2017-05-24] MEDS: PIPERACILLIN-TAZOBACTAM 3.375 GM in DEXTROSE/WATER 1 50ML.BAG IVPB SCH ×3 (04:45→22:17)
[2017-05-24] MEDS: PANTOPRAZOLE 40 MG TABLET PO SCH ×2 (08:34→17:31)
[2017-05-24] MEDS: ASPIRIN 81 MG PO SCH (08:34)
[2017-05-24] MEDS: PRAVASTATIN SODIUM 40 MG TAB PO SCH (08:34)
[2017-05-24] MEDS: amLODIPine 5 MG TAB PO SCH (08:34)
[2017-05-24] MEDS: TAMSULOSIN 0.4 MG CAP.ER.24H PO SCH (08:34)
[2017-05-24] MEDS: MEMANTINE 5 MG TAB PO SCH ×2 (08:34→22:18)
[2017-05-24] MEDS: HEPARIN SODIUM,PORCINE 5,000 UNIT/ML 1 ML VIAL SQ SCH ×2 (08:35→22:19)
[2017-05-24] MEDS: MULTIVITAMINS, THERA 1 EACH TAB PO SCH (08:40)
[2017-05-24 10:06] LABS: Basophils % (A) 0 %; CH 31.7; CHCM 31.9; Eosinophils % (A) 0 %; HCT 46.1 % (39.0-53.0); HDW 2.23; HGB 14.6 gm/dL (13.0-17.5); Luc # (Auto) 0.26; Luc % (Auto) 4; Lymphocytes # (A) 1.1 k/uL (1.0-4.8); Lymphocytes % (A) 15 %; MCH 31.7 pg (25.0-35.0); MCHC 31.6 g/dL (31.0-37.0); MCV 100.3 fL (80.0-100.0); Macrocytosis Slight; Mean Platelet Volume 8.3; Monocytes # (A) 0.7 k/uL (0-1.0); Monocytes % (A) 9 %; Neutrophils # (A) 5.3 k/uL (1.3-7.7); Neutrophils % (A) 71 %; RDW 14.8 % (11.5-15.5); WBC 7.4 k/uL (3.8-10.6); WBC (Perox) 7.14
[2017-05-24 10:26] LABS: Anion Gap 15 mmol/L; Blood Urea Nitrogen 19 mg/dL (9-20); Calcium 9.3 mg/dL (8.4-10.2); Carbon Dioxide 23 mmol/L (22-30); Chloride 103 mmol/L (98-107); Glucose 124 mg/dL (74-99); Non-African American GFR(MDRD) >60 (>60 ml/min/1.73 sqM); Potassium 3.5 mmol/L (3.5-5.1); Sodium 141 mmol/L (137-145)
--- NOTE | 2017-05-24 11:48 | P.PN ---
Subjective Progress Note Date: 05/24/17 86-year-old male seen and evaluated at bedside at bedside updated on plan of care. Patient's pleasant operative oriented to self and place. Patient had a CAT scan on admission showed evidence of fecal impaction. Family states patient hasn't had a bowel movement in over a week. Patient was given a soapsuds enema last night no positive results. Patient reportedly was experiencing rectal pain Abdomen soft bowel tones present no nausea no vomiting patients being seen by surgical service for the abnormal CAT scan for fecal impaction Objective - Vital Signs Vital signs: Vital Signs Temp 97.0 F L 05/24/17 07:00 Pulse 79 05/24/17 07:00 Resp 17 05/24/17 07:00 BP 152/90 05/24/17 07:00 Pulse Ox 92 L 05/24/17 07:00 Intake & Output 05/23/17 05/24/17 05/24/17 18:59 06:59 18:59 Intake Total 1200 Balance 1200 Intake: Oral 1200 Other: Voiding Method Toilet Bedside Commode Urinal Urinal # Voids 2 1 # Bowel Movements 1 1 - Exam Physical exam 86-year-old male sitting up in a chair pleasant oriented times to person place Lungs essentially clear adequate air movement on room air Heart S1-S2 audible regular Abdomen soft no facial grimacing with palpitation to the abdominal wall no document bowel movements after soapsuds enema given yesterday no nausea no vomiting urinating no difficulty Extremities no edema noted - Labs CBC & Chem 7: 05/24/17 08:45 05/24/17 08:45 Labs: Abnormal Lab Results - Last 24 Hours (Table) 05/24/17 05/24/17 Range/Units 08:45 08:45 MCV 100.3 H (80.0-100.0) fL Plt Count 132 L (150-450) k/uL Glucose 124 H (74-99) mg/dL Microbiology - Last 24 Hours (Table) 05/22/17 17:00 Blood Culture - Preliminary Blood No Growth after 24 hours Assessment and Plan Plan: Impression Computed tomography scan abdomen shows rectal fecal impaction present on admission Present on admission sepsis suspect due to UTI Present on admission acute metabolic encephalopathy suspect due to sepsis due to UTI History of hemorrhoids Present on admission rectal pain suspect due to fecal impaction Plan Start bowel stimulant program MiraLAX, Colace Repeat a soapsuds enema now monitor the response Further recommendations pending Will add lactulose and monitor the response The above impression and plan of care have been discussed and directed by signing physician. Laquita Vázquez nurse practitioner acting as scribe for signing physician.
[2017-05-24] MEDS: POLYETHYLENE GLYCOL 3350 17 GM POWD.PACK PO SCH (13:44)
[2017-05-24] MEDS: LACTULOSE 20 GM/30 ML CUP PO SCH ×3 (13:44→22:19)
[2017-05-24] MEDS: DOCUSATE 100 MG CAP PO SCH ×2 (13:44→22:19)
[2017-05-24] MEDS ORDERED: SENNOSIDES-DOCUSATE SODIUM 1 EACH TAB PO SCH (15:08)
--- NOTE | 2017-05-24 15:20 | P.PN ---
Subjective Progress Note Date: 05/24/17 Progress Note being dictated for Dr. Glover 05/21/17 This 86-year-old gentleman admitted with acute UTI with sepsis, acute metabolic encephalopathy and multiple other medical issues. Maintained on IV antibiotics. Significant clinical improvement, afebrile, WBC normalized .Confusion persist, complaining of urgency and frequency. at bedside, stating patient has significant issues with hemorrhoids, requesting surgical evaluation. 05/24/2017 confusion improving. Significant weakness, evaluated by PT/OT and subacute rehab recommended at discharge. CAT scan reported fecal impaction, bowel regimen in process as per surgery. Denies nausea or vomiting. Good diet intake, consuming 50%. Objective - Vital Signs Vital signs: Vital Signs Temp 97.0 F L 05/24/17 07:00 Pulse 79 05/24/17 07:00 Resp 17 05/24/17 07:00 BP 152/90 05/24/17 07:00 Pulse Ox 92 L 05/24/17 07:00 Intake & Output 05/23/17 05/24/17 05/24/17 18:59 06:59 18:59 Intake Total 1200 480 Balance 1200 480 Weight 78.92 kg Intake: Oral 1200 480 Other: Voiding Method Toilet Bedside Commode Urinal Urinal # Voids 2 1 # Bowel Movements 1 1 - Exam PHYSICAL EXAM: VITAL SIGNS: As above GENERAL: Sitting up in bed, pleasantly confused HEENT: Conjunctivae normal. eyes normal. Oral mucosa moist NECK: No JVD. No thyroid enlargement. No LNs CARDIOVASCULAR: S1, S2 muffled. No murmur RESPIRATION: Breath sounds diminished in the bases. Occasional rhonchi, no crackles. ABDOMEN: Soft, nontender . No guarding. no masses palpable.Bowel sounds heard. LEGS: No edema. no swelling PSYCHIATRY: Alert and oriented -2, confused, cooperative l. NERVOUS SYSTEM: Cranial N 2-12 grossly normal. Moves all 4 limbs. Diffuse weakness ,No focal deficits. No sensory deficit. Skin: no ulcer no rash Joints: No active swelling. No inflammation. Lymphatic system. No LN neck axilla or groin. - Labs CBC & Chem 7: 05/24/17 08:45 05/24/17 08:45 Labs: Abnormal Lab Results - Last 24 Hours (Table) 05/24/17 05/24/17 Range/Units 08:45 08:45 MCV 100.3 H (80.0-100.0) fL Plt Count 132 L (150-450) k/uL Glucose 124 H (74-99) mg/dL Microbiology - Last 24 Hours (Table) 05/22/17 17:00 Blood Culture - Preliminary Blood No Growth after 24 hours Assessment and Plan Plan: 1. [ Acute UTI with sepsis]. 2. [ Acute on chronic metabolic encephalopathy with change in mental state, improving]. 3. Constipation,Fecal impaction with rectal pain 4. Hemorrhoids]. 5. [CAD 6. [ Leukopenia on Neupogen, previously]. 7. Leukocytosis possibly related to sepsis as well as Neupogen 8. No code, no CPR, no vent 9. Gait dysfunction, DJD Plan: Continue on current medication regime , antibiotics, GI and DVT prophylaxis, monitoring,PT/OT. Constipation regimen as per surgery in progress. Discharge planning in progress to subacute rehab -preauthorization pending. The impression and plan of care has been dictated as directed. : I performed a history and examination of this patient, discussed the same with the dictator. I agree with the dictator's note ,documented as a scribe. Any additional findings or plans will be noted.
[2017-05-24] MEDS ORDERED: NA PHOS,M-B/NA PHOS,DI-BA 133 ML ENEMA RECTAL ONE (17:29)
--- NOTE | 2017-05-24 21:08 | PN ---
PROGRESS NOTE REASON FOR FOLLOWUP: UTI and possible colitis. INTERVAL HISTORY: The patient is afebrile, has been breathing comfortably. Denies any chest pain or cough. No abdominal pain. His urinary symptom have improved. No diarrhea, per the . PHYSICAL EXAMINATION: Blood pressure is 124/78 with a pulse of 103, temperature of 98.2. He is 97% on room air. General description is an elderly male lying in bed in no distress. RESPIRATORY SYSTEM: Unlabored breathing. Clear to auscultation anteriorly HEART: S1, S2. ABDOMEN: Soft. No tenderness. LABS: Hemoglobin is 14.7, white count 7.4 with a BUN of 19, creatinine 1.04. DIAGNOSTIC IMPRESSION AND PLAN: Patient with leukocytosis which is likely multifactorial with a component of UTI, possible colitis. Patient seems to have shown clinical improvement, as his white count has normalized. He is currently on Zosyn. We will be transitioning that to oral at the time of discharge. Continue supportive care. MMODL / IJN: [id number] /
[2017-05-24] MEDS: QUEtiapine 25 MG TAB PO SCH (22:18)
[2017-05-24] MEDS: MELATONIN 5 MG TABLET PO SCH (22:18)
[2017-05-24] MEDS: DONEPEZIL 10 MG TAB PO SCH (22:19)
[2017-05-25] MEDS: PIPERACILLIN-TAZOBACTAM 3.375 GM in DEXTROSE/WATER 1 50ML.BAG IVPB SCH ×3 (04:54→21:05)
[2017-05-25 09:21] LABS: Anion Gap 12 mmol/L; Blood Urea Nitrogen 18 mg/dL (9-20); Carbon Dioxide 25 mmol/L (22-30); Chloride 104 mmol/L (98-107); Glucose 87 mg/dL (74-99); Non-African American GFR(MDRD) >60 (>60 ml/min/1.73 sqM); Potassium 3.7 mmol/L (3.5-5.1); Sodium 141 mmol/L (137-145)
[2017-05-25] MEDS: amLODIPine 5 MG TAB PO SCH (09:22)
[2017-05-25] MEDS: MULTIVITAMINS, THERA 1 EACH TAB PO SCH (09:22)
[2017-05-25] MEDS: LACTULOSE 20 GM/30 ML CUP PO SCH (09:23)
[2017-05-25] MEDS: DOCUSATE 100 MG CAP PO SCH ×2 (09:23→20:46)
[2017-05-25] MEDS: MEMANTINE 5 MG TAB PO SCH ×2 (09:23→20:46)
[2017-05-25] MEDS: PRAVASTATIN SODIUM 40 MG TAB PO SCH (09:23)
[2017-05-25] MEDS: ASPIRIN 81 MG PO SCH (09:23)
[2017-05-25] MEDS: HEPARIN SODIUM,PORCINE 5,000 UNIT/ML 1 ML VIAL SQ SCH ×2 (09:23→20:47)
[2017-05-25] MEDS: PANTOPRAZOLE 40 MG TABLET PO SCH ×2 (09:23→17:42)
[2017-05-25] MEDS: TAMSULOSIN 0.4 MG CAP.ER.24H PO SCH (09:23)
[2017-05-25] MEDS: POLYETHYLENE GLYCOL 3350 17 GM POWD.PACK PO SCH (09:23)
[2017-05-25 10:27] LABS: Anisocytosis Slight; Aty Lym Flag Slight; CH 32.9; CHCM 32.2; HDW 2.28; HGB 14.1 gm/dL (13.0-17.5); MCH 32.2 pg (25.0-35.0); MCHC 31.3 g/dL (31.0-37.0); MCV 102.8 fL (80.0-100.0); Macrocytosis Slight; Mean Platelet Volume 9.8; RBC 4.38 m/uL (4.30-5.90); RDW 16.4 % (11.5-15.5); WBC 3.6 k/uL (3.8-10.6)
[2017-05-25 11:00] LABS: Add Differential Manual Differential
[2017-05-25 11:07] LABS: Manual Review Performed; Nucleated Red Blood Cells 0 /100 WBC (0-0); RBC Morphology Normal; Total Cells Counted 100
[2017-05-25] MEDS ORDERED: RX INFO: IV CONTRAST WAS GIVEN 1 EACH MISC MISCELLANE PRN (12:41)
--- NOTE | 2017-05-25 13:19 | CT ---
EXAMINATION TYPE: CT brain wo con for TPA DATE OF EXAM: 05/25/2017 COMPARISON: NONE HISTORY: Right facial droop CT DLP: 228.2 mGycm Automated exposure control for dose reduction was used. FINDINGS: There is extensive degenerative change with a greater central component. Nonspecific low attenuation in the white matter seen bilaterally. Low-attenuation the thalamus on the left and basal ganglia bila terally may been the basis of tiny remote lacunar infarcts. Correlate clinically. No mass effect, midline shift or acute hemorrhage. IMPRESSION: 1. NO ACUTE HEMORRHAGE, MASS EFFECT OR MIDLINE SHIFT. 2. DEGENERATIVE AND NONSPECIFIC WHITE MATTER CHANGES. 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 CORRELATE CLINICALLY. IF THERE IS CONCERN FOR ACUTE ISCHEMIA CONSIDER MRI.
--- NOTE | 2017-05-25 13:52 | CT ---
EXAMINATION TYPE: CT angio head neck DATE OF EXAM: 05/25/2017 HISTORY: Rt facial droop COMPARISON: NONE CT DLP: CTA head 1090.4, Neck 226.2 mGycm. Automated Exposure Control for Dose Reduction was Utilize d. TECHNIQUE: CTA scan of the neck is performed with IV Contrast, patient injected with 65 mL of Omnipa que 350, axial images are obtained, coronal and sagittal reformatted images are reviewed. Three-D rec onstructed images are created on an independent workstation and reviewed. FINDINGS: There is a common origin of the brachiocephalic artery and left common carotid artery. Ther e is mild to moderate atherosclerotic disease involving the carotid bifurcation bilaterally. No signi ficant hemodynamic stenosis identified. Atherosclerotic change involving the aortic arch is noted. Hypertrophic and degenerative change of the spine noted. Facet arthropathy noted with multilevel fora reinaldo encroachment. Canal stenosis not excluded. Sternotomy wires noted. Intracranially there is no evidence of sizable aneurysm or vascular malformation. IMPRESSION: 1. No sizable aneurysm or vascular malformation. 2. Mild to moderate atherosclerotic change involving the carotid bifurcations.
--- NOTE | 2017-05-25 14:19 | P.PN ---
Subjective Progress Note Date: 05/25/17 86-year-old male seen and examined at bedside this morning nursing reports patient had a large formed stool last evening after having a soapsuds enema given. Abdomen soft reports no nausea vomiting and tolerating a diet this morning Objective - Vital Signs Vital signs: Vital Signs Temp 97.8 F 05/25/17 07:00 Pulse 84 05/25/17 12:15 Resp 16 05/25/17 12:15 BP 120/74 05/25/17 12:15 Pulse Ox 95 05/25/17 12:15 Intake & Output 05/24/17 05/25/17 05/25/17 18:59 06:59 18:59 Intake Total 480 Balance 480 Weight 78.92 kg Intake: Oral 480 Other: Voiding Method Bedside Commode Urinal # Voids 2 # Bowel Movements 1 1 - Exam Physical exam 86-year-old male seen resting in bed this morning awake and alert lungs essentially clear with adequate air movement sats are 95% on room air Heart S1-S2 audible regular no murmur Abdomen soft no facial grimacing with palpitation to the abdominal wall bowel tones present one bowel movement this morning using the urinal no nausea no vomiting Extremities no edema noted - Labs CBC & Chem 7: 05/25/17 08:25 05/25/17 08:25 Labs: Abnormal Lab Results - Last 24 Hours (Table) 05/25/17 Range/Units 08:25 WBC 3.6 L (3.8-10.6) k/uL MCV 102.8 H (80.0-100.0) fL RDW 16.4 H (11.5-15.5) % Plt Count 119 L (150-450) k/uL Microbiology - Last 24 Hours (Table) 05/22/17 17:00 Blood Culture - Preliminary Blood No Growth after 48 hours Assessment and Plan Plan: Impression Computed tomography scan abdomen shows rectal fecal impaction present on admission resolving Present on admission sepsis suspect due to UTI Present on admission acute metabolic encephalopathy suspect due to sepsis due to UTI History of hemorrhoids Present on admission rectal pain suspect due to fecal impaction resolving Plan Start bowel stimulant program MiraLAX, Colace No evidence of acute surgical abdomen Further surgical recommendations pending The above impression and plan of care have been discussed and directed by signing physician. Laquita Vázquez nurse practitioner acting as scribe for signing physician.
--- NOTE | 2017-05-25 16:44 | P.PN ---
Subjective Progress Note Date: 05/25/17 Progress Note being dictated for Dr. Ayala 05/21/17 This 86-year-old gentleman admitted with acute UTI with sepsis, acute metabolic encephalopathy and multiple other medical issues. Maintained on IV antibiotics. Significant clinical improvement, afebrile, WBC normalized .Confusion persist, complaining of urgency and frequency. at bedside, stating patient has significant issues with hemorrhoids, requesting surgical evaluation. 05/24/2017 confusion improving. Significant weakness, evaluated by PT/OT and subacute rehab recommended at discharge. CAT scan reported fecal impaction, bowel regimen in process as per surgery. Denies nausea or vomiting. Good diet intake, consuming 50%. 05/25/2017 responded well to bowel regimen with positive large bowel movement last night. more tired today, family reporting more difficult to arouse, code stroke called, neuro workup in progress. Sitting up in chair, no neuro deficits noted. Verbally responsive, following commands, generalized weakness persists. Good diet intake, no nausea or vomiting .Denies chest pain, palpitations or increasing shortness of breath. Objective - Vital Signs Vital signs: Vital Signs Temp 97.4 F L 05/25/17 15:00 Pulse 65 05/25/17 15:00 Resp 16 05/25/17 15:00 BP 131/67 05/25/17 15:00 Pulse Ox 93 L 05/25/17 15:00 Intake & Output 05/24/17 05/25/17 05/25/17 18:59 06:59 18:59 Intake Total 480 600 Balance 480 600 Weight 78.92 kg Intake: Oral 480 600 Other: Voiding Method Bedside Commode Urinal # Voids 2 2 # Bowel Movements 1 1 1 - Exam PHYSICAL EXAM: VITAL SIGNS: As above GENERAL: Sitting up in chair, alert, mild confusion; when asked to repeat A E I O U, pt responded" I don't owe u anything'. HEENT: Conjunctivae normal. eyes normal. Oral mucosa moist, NECK: No JVD. No thyroid enlargement. No LNs CARDIOVASCULAR: S1, S2 muffled. No murmur RESPIRATION: Breath sounds diminished in the bases. Occasional rhonchi, no crackles. ABDOMEN: Soft, nontender . No guarding. no masses palpable.Bowel sounds heard. LEGS: No edema. no swelling PSYCHIATRY: Alert and oriented -2, confused, cooperative, pleasant NERVOUS SYSTEM: Cranial N 2-12 grossly normal. Moves all 4 limbs. Diffuse weakness ,No focal deficits. No sensory deficit. unable to appreciate facial droop. Skin: no ulcer no rash Joints: No active swelling. No inflammation. Lymphatic system. No LN neck axilla or groin. - Labs CBC & Chem 7: 05/25/17 08:25 05/25/17 08:25 Labs: Abnormal Lab Results - Last 24 Hours (Table) 05/25/17 Range/Units 08:25 WBC 3.6 L (3.8-10.6) k/uL MCV 102.8 H (80.0-100.0) fL RDW 16.4 H (11.5-15.5) % Plt Count 119 L (150-450) k/uL Microbiology - Last 24 Hours (Table) 05/22/17 17:00 Blood Culture - Preliminary Blood No Growth after 48 hours Assessment and Plan Plan: 1. [ Acute UTI with sepsis]. 2. [ Acute on chronic metabolic encephalopathy with change in mental state, improving]. 3. Constipation,Fecal impaction with rectal pain, resolved 4. Hemorrhoids]. 5. [CAD 6. [ Leukopenia on Neupogen, previously]. 7. Leukocytosis possibly related to sepsis as well as Neupogen 8. No code, no CPR, no vent 9. Gait dysfunction, DJD Plan: Continue on current medication regime , antibiotics, GI and DVT prophylaxis, monitoring,PT/OT. Initially had planned for discharge, but will monitor overnight and await final results from neuro workup as mentioned above. Discharge planning in progress to subacute rehab -preauthorization pending. The impression and plan of care has been dictated as directed. : I performed a history and examination of this patient, discussed the same with the dictator. I agree with the dictator's note ,documented as a scribe. Any additional findings or plans will be noted.
[2017-05-25] MEDS: FILGRASTIM-SNDZ 480 MCG/0.8 ML SYRINGE SQ SCH (17:42)
[2017-05-25] MEDS: MELATONIN 5 MG TABLET PO SCH (20:46)
[2017-05-25] MEDS: DONEPEZIL 10 MG TAB PO SCH (20:46)
[2017-05-25] MEDS: QUEtiapine 25 MG TAB PO SCH (20:47)
--- NOTE | 2017-05-26 08:55 | PN ---
PROGRESS NOTE DATE OF SERVICE: 05/25/2017 REASON FOR FOLLOWUP: Leukocytosis and question of UTI. INTERVAL HISTORY: The patient is afebrile. He has been breathing comfortably. No chest pain, shortness of breath. No abdominal pain. His urinary symptoms have improved. Did have a bowel movement and resolution of constipation. PHYSICAL EXAMINATION: Blood pressure 120/74 with a pulse of 84, temperature 97.8. He is 95% on room air. General description is an elderly male lying in bed, in no distress. RESPIRATORY SYSTEM: Unlabored breathing, clear to auscultation anteriorly. HEART: S1, S2, regular rate and rhythm. ABDOMEN: Soft, no tenderness. LABS: Hemoglobin 14.1, white count of 3.6 with a BUN of 18, creatinine 1.0. Culture has been negative so far. DIAGNOSTIC IMPRESSION AND PLAN: Patient with a significantly elevated white count, could be more likely multifactorial, questionably related to the , +/- urinary tract infection or the abdominal source with significant lost fever that resolved. Currently on Zosyn. Will give a short course of oral Augmentin for about a week with close outpatient followup. was present at bedside. Their questions were answered. MMODL / IJN: [id number] /
[2017-05-26] MEDS: MULTIVITAMINS, THERA 1 EACH TAB PO SCH (09:25)
[2017-05-26] MEDS: MEMANTINE 5 MG TAB PO SCH ×2 (09:25→20:58)
[2017-05-26] MEDS: PRAVASTATIN SODIUM 40 MG TAB PO SCH (09:25)
[2017-05-26] MEDS: ASPIRIN 81 MG PO SCH (09:25)
[2017-05-26] MEDS: TAMSULOSIN 0.4 MG CAP.ER.24H PO SCH (09:25)
[2017-05-26] MEDS: PANTOPRAZOLE 40 MG TABLET PO SCH ×2 (09:25→17:32)
[2017-05-26] MEDS: DOCUSATE 100 MG CAP PO SCH ×2 (09:25→20:57)
[2017-05-26] MEDS: POLYETHYLENE GLYCOL 3350 17 GM POWD.PACK PO SCH (09:26)
[2017-05-26] MEDS: HEPARIN SODIUM,PORCINE 5,000 UNIT/ML 1 ML VIAL SQ SCH ×2 (09:26→20:58)
[2017-05-26] MEDS: amLODIPine 5 MG TAB PO SCH (09:29)
[2017-05-26] MEDS: PIPERACILLIN-TAZOBACTAM 3.375 GM in DEXTROSE/WATER 1 50ML.BAG IVPB SCH ×3 (10:34→20:57)
--- NOTE | 2017-05-26 12:28 | P.PN ---
Subjective Progress Note Date: 05/26/17 86-year-old male seen sitting up in a chair nursing reports patient was incontinent a large amount of stool last evening. no nausea or vomiting. . Is being followed by surgical service for evaluation of abdominal pain with imaging showing fecal impaction patient has received soapsuds enemas with positive results Objective - Vital Signs Vital signs: Vital Signs Temp 97.1 F L 05/26/17 07:00 Pulse 74 05/26/17 07:00 Resp 16 05/26/17 07:00 BP 137/60 05/26/17 07:00 Pulse Ox 92 L 05/26/17 07:00 Intake & Output 05/25/17 05/26/17 05/26/17 18:59 06:59 18:59 Intake Total 600 Output Total 4 Balance 600 -4 Intake: Oral 600 Output: Stool 3 Urine/Stool Mix 1 Other: # Voids 2 2 # Bowel Movements 2 2 - Exam Physical exam 86-year-old male seen in up in a chair pleasant cooperative awake and alert lungs essentially clear with adequate air movement sats are 95% on room air Heart S1-S2 audible regular no murmur Abdomen soft no facial grimacing with palpitation to the abdominal wall bowel tones present using the urinal no nausea no vomiting not distended nontender to document stools noted during the night Extremities no edema noted - Labs CBC & Chem 7: 05/25/17 08:25 05/25/17 08:25 Labs: Microbiology - Last 24 Hours (Table) 05/22/17 17:00 Blood Culture - Preliminary Blood No Growth after 72 hours Assessment and Plan Plan: Impression Computed tomography scan abdomen shows rectal fecal impaction present on admission resolving Present on admission sepsis suspect due to UTI Present on admission acute metabolic encephalopathy suspect due to sepsis due to UTI History of hemorrhoids Present on admission rectal pain suspect due to fecal impaction resolving Present on admission leukocytosis infectious disease following white count trending down Plan Start bowel stimulant program MiraLAX, Colace No evidence of acute surgical abdomen will Sign off re-eval as indicated The above impression and plan of care have been discussed and directed by signing physician. Laquita Vázquez nurse practitioner acting as scribe for signing physician.
--- NOTE | 2017-05-26 15:25 | P.DS ---
Providers Date of admission: 05/19/17 17:09 Expected date of discharge: 05/26/17 Attending physician: John Ayala Consults: 05/22/17 15:57 Consult Physician Routine Consulting Provider: Enmanuel Bergeron Consult Reason/Comments: hemorrhoids, gi bleed Do you want consulting provider notified?: Yes Consult Physician Routine Consulting Provider: Arlene Elizabeth Consult Reason/Comments: sepsis Do you want consulting provider notified?: Yes Primary care physician: Kelly James Farideh Hospital Course: Final DIagnoses: 1. [ Acute UTI with sepsis]. 2. [ Acute on chronic metabolic encephalopathy with change in mental state, improving]. 3. Constipation,Fecal impaction with rectal pain, resolved 4. Hemorrhoids]. 5. [CAD 6. [ Leukopenia on Neupogen, previously]. 7. Leukocytosis possibly related to sepsis as well as Neupogen 8. No code, no CPR, no vent 9. Gait dysfunction, DJD Hospital COurse:This is a 86-year-old gentleman admitted with acute UTI with sepsis, acute metabolic encephalopathy and multiple other medical issues. Evaluated by ID and surgery. Maintained on IV antibiotics. at bedside, stating patient has significant issues with hemorrhoids, requesting surgical evaluation. CAT scan reported fecal impaction, bowel regimen initiated as per surgery, with positive results. Yesterday sleepy,family concerned, neuro worlup completed;evaluated by robotic neurologist. CTA reported no significant hemodynamic stenosis, mild to moderate atherosclerotic change involving carotid bifurications, Brain CT reported microvascular ischemia. Significant clinical improvement. Patient has been cleared by all consults for discharge. Patient is being discharge to sub acute rehab. in a stable condition with guarded prognosis. The impression and plan of care has been dictated as directed. : I performed a history and examination of this patient, discussed the same with the dictator. I agree with the dictator's note ,documented as a scribe. Any additional findings or plans will be noted. Patient Condition at Discharge: Stable Plan - Discharge Summary New Discharge Prescriptions: New Amoxic-Pot Clav 875-125Mg [Augmentin 875-125] 1 tab PO Q12HR #14 tablet Docusate [Colace] 100 mg PO BID cap HYDROcodone/APAP 5-325MG [Usk 5-325] 1 each PO Q6H PRN #20 tab PRN Reason: Moderate Pain Polyethylene Glycol 3350 [Miralax] 17 gm PO DAILY powd.pack QUEtiapine [SEROquel] 25 mg PO HS tab Continue Aspirin EC [Ecotrin Low Dose] 81 mg PO DAILY Tamsulosin [Flomax] 0.4 mg PO DAILY [place]-3 Fatty Acids/Fish Oil [Fish Oil 1,000 mg Capsule] 1 cap PO DAILY Filgrastim Sndz [Neupogen] 480 mcg SQ TUFR amLODIPine [Norvasc] 5 mg PO DAILY Pravastatin Sodium [Pravachol] 40 mg PO DAILY Omeprazole [PriLOSEC] 20 mg PO AC-BID Coconut Oil 1 tab PO DAILY Donepezil 23mg 23 mg PO HS Melatonin 10 mg PO HS Memantine [Namenda] 5 mg PO BID Multivitamins, Thera [Multivitamin (formulary)] 1 tab PO DAILY traZODone HCL 50 mg PO HS PRN PRN Reason: Insomnia Discharge Medication List Aspirin EC [Ecotrin Low Dose] 81 mg PO DAILY 01/28/17 [History] Filgrastim Sndz [Neupogen] 480 mcg SQ TUFR 01/28/17 [History] [place]-3 Fatty Acids/Fish Oil [Fish Oil 1,000 mg Capsule] 1 cap PO DAILY [History] Omeprazole [PriLOSEC] 20 mg PO AC-BID 01/28/17 [History] Pravastatin Sodium [Pravachol] 40 mg PO DAILY 01/28/17 [History] Tamsulosin [Flomax] 0.4 mg PO DAILY 01/28/17 [History] amLODIPine [Norvasc] 5 mg PO DAILY 01/28/17 [History] Coconut Oil 1 tab PO DAILY 05/19/17 [History] Donepezil 23mg 23 mg PO HS 05/19/17 [History] Melatonin 10 mg PO HS 05/19/17 [History] Memantine [Namenda] 5 mg PO BID 05/19/17 [History] Multivitamins, Thera [Multivitamin (formulary)] 1 tab PO DAILY 05/19/17 [History ] traZODone HCL 50 mg PO HS PRN 05/19/17 [History] Amoxic-Pot Clav 875-125Mg [Augmentin 875-125] 1 tab PO Q12HR #14 tablet [Rx] Docusate [Colace] 100 mg PO BID cap 05/26/17 [Rx] HYDROcodone/APAP 5-325MG [Usk 5-325] 1 each PO Q6H PRN #20 tab 05/26/17 [Rx] Polyethylene Glycol 3350 [Miralax] 17 gm PO DAILY powd.pack 05/26/17 [Rx] QUEtiapine [SEROquel] 25 mg PO HS tab 05/26/17 [Rx] Follow up Appointment(s)/Referral(s): [facility], [NON-STAFF] - As Needed Kelly Gong III, MD [Primary Care Provider] - 1 Week (after dc from [facility]) Ghulam Mckeon DO [STAFF PHYSICIAN] - 3 Days (while at [facility]) Patient Instructions/Handouts: Urinary Tract Infection in Men (DC) Activity/Diet/Wound Care/Special Instructions: PH MEdi ECF cbc,bmp in 3 days Regular Diet with Ensure supplements between meals and qhs Close outpatient followup regarding UTI. Discharge Disposition: TRANSFER TO SNF/ECF
--- NOTE | 2017-05-26 17:53 | P.PN ---
Subjective Progress Note Date: 05/26/17 Progress Note being dictated for Dr. Ayala 05/21/17 This 86-year-old gentleman admitted with acute UTI with sepsis, acute metabolic encephalopathy and multiple other medical issues. Maintained on IV antibiotics. Significant clinical improvement, afebrile, WBC normalized .Confusion persist, complaining of urgency and frequency. at bedside, stating patient has significant issues with hemorrhoids, requesting surgical evaluation. 05/24/2017 confusion improving. Significant weakness, evaluated by PT/OT and subacute rehab recommended at discharge. CAT scan reported fecal impaction, bowel regimen in process as per surgery. Denies nausea or vomiting. Good diet intake, consuming 50%. 05/25/2017 responded well to bowel regimen with positive large bowel movement last night. more tired today, family reporting more difficult to arouse, code stroke called, neuro workup in progress. Sitting up in chair, no neuro deficits noted. Verbally responsive, following commands, generalized weakness persists. Good diet intake, no nausea or vomiting .Denies chest pain, palpitations or increasing shortness of breath. 05/26/2017 sitting up in chair, doing well. Conversing with appropriately. Good diet intake. Another bowel movement last night. Yesterday concerned that patient appeared more lethargic. CTA brain CT ordered. CTA reported no significant hemodynamic stenosis, mild to moderate atherosclerotic change involving carotid bifurications, Brain CT reported microvascular ischemia. Awaiting discharge to subacute rehab. Afebrile. Objective - Vital Signs Vital signs: Vital Signs Temp 97.1 F L 05/26/17 07:00 Pulse 74 05/26/17 07:00 Resp 16 05/26/17 07:00 BP 137/60 05/26/17 07:00 Pulse Ox 92 L 05/26/17 07:00 Intake & Output 05/25/17 05/26/17 05/26/17 18:59 06:59 18:59 Intake Total 600 50 Output Total 4 Balance 600 -4 50 Intake: Intake, IV Titration 50 Amount Piperacillin-Tazobactam 3 50 .375 gm In Dextrose/Water 1 50ml.bag @ 12.5 mls/hr IVPB Q8H [facility] Rx#: [id number] Oral 600 Output: Stool 3 Urine/Stool Mix 1 Other: # Voids 2 2 # Bowel Movements 2 2 - Exam PHYSICAL EXAM: VITAL SIGNS: As above GENERAL: Sitting up in chair, alert, conversing appropriately HEENT: Conjunctivae normal. eyes normal. Oral mucosa moist, NECK: No JVD. No thyroid enlargement. No LNs CARDIOVASCULAR: S1, S2 muffled. No murmur RESPIRATION: Breath sounds diminished in the bases. No rhonchi, no crackles. ABDOMEN: Soft, nontender . No guarding. no masses palpable.Bowel sounds heard. LEGS: No edema. no swelling PSYCHIATRY: Alert and oriented -2, mildly confused, cooperative, pleasant NERVOUS SYSTEM: Cranial N 2-12 grossly normal. Moves all 4 limbs. Diffuse weakness ,No focal deficits. No sensory deficit. No facial droop. Converses appropriately, speech clear. Skin: no ulcer no rash Joints: No active swelling. No inflammation. Lymphatic system. No LN neck axilla or groin. - Labs CBC & Chem 7: 05/25/17 08:25 05/25/17 08:25 Labs: Microbiology - Last 24 Hours (Table) 05/22/17 17:00 Blood Culture - Preliminary Blood No Growth after 72 hours Assessment and Plan Plan: 1. [ Acute UTI with sepsis]. 2. [ Acute on chronic metabolic encephalopathy with change in mental state, improving]. 3. Constipation,Fecal impaction with rectal pain, resolved 4. Hemorrhoids]. 5. [CAD 6. [ Leukopenia on Neupogen, previously]. 7. Leukocytosis possibly related to sepsis as well as Neupogen 8. No code, no CPR, no vent 9. Gait dysfunction, DJD Plan: Continue on current medication regime , antibiotics, GI and DVT prophylaxis, monitoring,PT/OT. Discharge planning in progress to subacute rehab -preauthorization pending. The impression and plan of care has been dictated as directed. : I performed a history and examination of this patient, discussed the same with the dictator. I agree with the dictator's note ,documented as a scribe. Any additional findings or plans will be noted.
[2017-05-26] MEDS: QUEtiapine 25 MG TAB PO SCH (20:58)
[2017-05-26] MEDS: DONEPEZIL 10 MG TAB PO SCH (20:58)
[2017-05-26] MEDS: MELATONIN 5 MG TABLET PO SCH (20:58)
--- NOTE | 2017-05-26 22:25 | PN ---
PROGRESS NOTE DATE OF SERVICE: 05/26/2017 REASON FOR FOLLOWUP: Elevated white count and a question of a UTI versus abdominal source. INTERVAL HISTORY: The patient is afebrile. He remains to be pleasantly confused, but denies any chest pain or shortness of breath, cough. No abdominal pain or diarrhea. EXAMINATION: The patient blood pressure 133/67 with a pulse of 80, temperature 97.8. He is 96% on room air. General description is an elderly male up in the bed in no distress. Respiratory system up in the bed, unlabored breathing. Clear to auscultation anteriorly. Heart S1, S2. Regular rate and rhythm. Abdomen soft, no tenderness. LABS: No new labs have been obtained today. His blood culture negative. Urine culture negative. DIAGNOSTIC IMPRESSION AND PLAN: Patient with an elevated white count. The patient did have a possible urinary tract infection and significant distention of his rectum and sigmoid colon. The question of abdominal source. Overall improvement with Zosyn. We will be recommending to finish therapy with short course of oral Augmentin for about a week with close outpatient followup. MMODL / IJN: [id number] /
[2017-05-27 00:35] LABS: Cholesterol 97 mg/dL (<200); HDL Cholesterol 13 mg/dL (40-60)
[2017-05-27] MEDS: PIPERACILLIN-TAZOBACTAM 3.375 GM in DEXTROSE/WATER 1 50ML.BAG IVPB SCH ×3 (04:21→20:03)
[2017-05-27] MEDS: DOCUSATE 100 MG CAP PO SCH ×2 (08:58→21:00)
[2017-05-27] MEDS: TAMSULOSIN 0.4 MG CAP.ER.24H PO SCH (08:58)
[2017-05-27] MEDS: HEPARIN SODIUM,PORCINE 5,000 UNIT/ML 1 ML VIAL SQ SCH ×2 (08:58→21:01)
[2017-05-27] MEDS: PRAVASTATIN SODIUM 40 MG TAB PO SCH (08:58)
[2017-05-27] MEDS: ASPIRIN 81 MG PO SCH (08:58)
[2017-05-27] MEDS: MEMANTINE 5 MG TAB PO SCH ×2 (08:58→21:00)
[2017-05-27] MEDS: MULTIVITAMINS, THERA 1 EACH TAB PO SCH (08:58)
[2017-05-27] MEDS: amLODIPine 5 MG TAB PO SCH (08:58)
[2017-05-27] MEDS: PANTOPRAZOLE 40 MG TABLET PO SCH ×2 (08:58→17:42)
[2017-05-27] MEDS: POLYETHYLENE GLYCOL 3350 17 GM POWD.PACK PO SCH (08:59)
[2017-05-27] MEDS: HYDROcodone/APAP 5-325MG 1 EACH TAB PO PRN ×2 (14:13→20:03)
--- NOTE | 2017-05-27 16:23 | P.PN ---
Subjective Progress Note Date: 05/27/17 Progress Note being dictated for Dr. Ayala 05/21/17 This 86-year-old gentleman admitted with acute UTI with sepsis, acute metabolic encephalopathy and multiple other medical issues. Maintained on IV antibiotics. Significant clinical improvement, afebrile, WBC normalized .Confusion persist, complaining of urgency and frequency. at bedside, stating patient has significant issues with hemorrhoids, requesting surgical evaluation. 05/24/2017 confusion improving. Significant weakness, evaluated by PT/OT and subacute rehab recommended at discharge. CAT scan reported fecal impaction, bowel regimen in process as per surgery. Denies nausea or vomiting. Good diet intake, consuming 50%. 05/25/2017 responded well to bowel regimen with positive large bowel movement last night. more tired today, family reporting more difficult to arouse, code stroke called, neuro workup in progress. Sitting up in chair, no neuro deficits noted. Verbally responsive, following commands, generalized weakness persists. Good diet intake, no nausea or vomiting .Denies chest pain, palpitations or increasing shortness of breath. 05/26/2017 sitting up in chair, doing well. Conversing with appropriately. Good diet intake. Another bowel movement last night. Yesterday concerned that patient appeared more lethargic. CTA brain CT ordered. CTA reported no significant hemodynamic stenosis, mild to moderate atherosclerotic change involving carotid bifurications, Brain CT reported microvascular ischemia. Awaiting discharge to subacute rehab. Afebrile. 05/27/2017. Overnight events. Sitting up in chair, good diet intake, visiting with . Afebrile. Awaiting preop authorization for subacute rehab discharge. Denies chest pain, palpitations or increasing shortness of breath. Objective - Vital Signs Vital signs: Vital Signs Temp 97.6 F 05/27/17 07:00 Pulse 83 05/27/17 07:00 Resp 16 05/27/17 07:00 BP 137/71 05/27/17 07:00 Pulse Ox 94 L 05/27/17 07:00 Intake & Output 05/26/17 05/27/17 05/27/17 18:59 06:59 18:59 Intake Total 50 Balance 50 Intake: Intake, IV Titration 50 Amount Piperacillin-Tazobactam 3 50 .375 gm In Dextrose/Water 1 50ml.bag @ 12.5 mls/hr IVPB Q8H [facility] Rx#: [id number] Other: # Voids 4 - Exam PHYSICAL EXAM: VITAL SIGNS: As above GENERAL: Sitting up in chair, alert, conversing appropriately HEENT: Conjunctivae normal. eyes normal. Oral mucosa moist, NECK: No JVD. No thyroid enlargement. No LNs CARDIOVASCULAR: S1, S2 muffled. No murmur RESPIRATION: Breath sounds diminished in the bases. No rhonchi, no crackles. ABDOMEN: Soft, nontender . No guarding. no masses palpable.Bowel sounds heard. LEGS: No edema. no swelling PSYCHIATRY: Alert and oriented -2, mildly confused, cooperative, pleasant NERVOUS SYSTEM: Cranial N 2-12 grossly normal. Moves all 4 limbs. Diffuse weakness ,No focal deficits. No sensory deficit. No facial droop. Converses appropriately, speech clear. Skin: no ulcer no rash Joints: No active swelling. No inflammation. Lymphatic system. No LN neck axilla or groin. - Labs CBC & Chem 7: 05/25/17 08:25 05/25/17 08:25 Labs: Abnormal Lab Results - Last 24 Hours (Table) 05/25/17 Range/Units 08:25 Triglycerides 182 H (<150) mg/dL HDL Cholesterol 13 L (40-60) mg/dL Microbiology - Last 24 Hours (Table) 05/22/17 17:00 Blood Culture - Preliminary Blood No Growth after 96 hours Assessment and Plan Plan: 1. [ Acute UTI with sepsis]. 2. [ Acute on chronic metabolic encephalopathy with change in mental state, improving]. 3. Constipation,Fecal impaction with rectal pain, resolved 4. Hemorrhoids]. 5. [CAD 6. [ Leukopenia on Neupogen, previously]. 7. Leukocytosis possibly related to sepsis as well as Neupogen 8. No code, no CPR, no vent 9. Gait dysfunction, DJD Plan: Continue on current medication regime , antibiotics, GI and DVT prophylaxis, monitoring,PT/OT. Discharge planning in progress to subacute rehab -preauthorization pending. The impression and plan of care has been dictated as directed. : I performed a history and examination of this patient, discussed the same with the dictator. I agree with the dictator's note ,documented as a scribe. Any additional findings or plans will be noted.
[2017-05-27] MEDS: MELATONIN 5 MG TABLET PO SCH (21:00)
[2017-05-27] MEDS: QUEtiapine 25 MG TAB PO SCH (21:00)
[2017-05-27] MEDS: DONEPEZIL 10 MG TAB PO SCH (21:00)
--- NOTE | 2017-05-27 21:56 | PN ---
PROGRESS NOTE DATE OF SERVICE: 05/27/2017 REASON FOR FOLLOWUP: Leukocytosis and question of UTI. INTERVAL HISTORY: The patient is afebrile, has been breathing comfortably. No chest pain. No cough. No abdominal pain or any diarrhea. PHYSICAL EXAMINATION: Blood pressure 112/52 with a pulse of 71, temperature 97.5. He is 96% on room air. GENERAL DESCRIPTION: An elderly male up in the chair in no distress. RESPIRATORY SYSTEM: Unlabored breathing. Clear to auscultation anteriorly. HEART: S1, S2. Regular rate and rhythm. ABDOMEN: Soft. No tenderness. LABS: Hemoglobin is 14.1, white count 3.6, BUN of 18, creatinine 1.0. DIAGNOSTIC IMPRESSION AND PLAN: Patient with elevated white count, could be more likely multifactorial with question of possible drug effect versus the urinary tract infection or abdominal source. Overall improving on Zosyn. Will be given a short course of oral Augmentin at discharge. Currently waiting for insurance approval for placement. was present at bedside. Her questions were answered. MMODL / IJN: [id number] /
[2017-05-28] MEDS: PIPERACILLIN-TAZOBACTAM 3.375 GM in DEXTROSE/WATER 1 50ML.BAG IVPB SCH ×2 (04:43→12:04)
[2017-05-28] MEDS: HYDROcodone/APAP 5-325MG 1 EACH TAB PO PRN ×2 (06:11→12:04)
[2017-05-28] MEDS: POLYETHYLENE GLYCOL 3350 17 GM POWD.PACK PO SCH (09:01)
[2017-05-28] MEDS: HEPARIN SODIUM,PORCINE 5,000 UNIT/ML 1 ML VIAL SQ SCH (09:02)
[2017-05-28] MEDS: MULTIVITAMINS, THERA 1 EACH TAB PO SCH (09:02)
[2017-05-28] MEDS: DOCUSATE 100 MG CAP PO SCH (09:02)
[2017-05-28] MEDS: PRAVASTATIN SODIUM 40 MG TAB PO SCH (09:02)
[2017-05-28] MEDS: amLODIPine 5 MG TAB PO SCH (09:02)
[2017-05-28] MEDS: ASPIRIN 81 MG PO SCH (09:02)
[2017-05-28] MEDS: MEMANTINE 5 MG TAB PO SCH (09:02)
[2017-05-28] MEDS: TAMSULOSIN 0.4 MG CAP.ER.24H PO SCH (09:02)
[2017-05-28] MEDS: PANTOPRAZOLE 40 MG TABLET PO SCH (09:02)
[2017-05-28] MEDS: FILGRASTIM-SNDZ 480 MCG/0.8 ML SYRINGE SQ SCH (12:04)
[2017-05-28 14:40] VITALS: BP 117/60; PULSE 63; RESP 18; TEMP 96.3
--- NOTE | 2017-05-28 14:59 | P.PN ---
Progress Note - Text Progress Note Date: 05/28/17 Addendum to discharge summary for Dr. Ayala. Patient has received authorization to proceed with discharge to subacute rehab. No changes,VSS. Patient remains stable for discharge. The impression and plan of care has been dictated as directed. : I performed a history and examination of this patient, discussed the same with the dictator. I agree with the dictator's note ,documented as a scribe. Any additional findings or plans will be noted.
--- NOTE | 2017-05-28 15:56 | PN ---
PROGRESS NOTE DATE OF SERVICE: 05/28/2017. REASON FOR FOLLOWUP VISIT: UTI and ulcerative colitis and leukocytosis. INTERVAL HISTORY: The patient is afebrile. He is more awake and alert today, breathing comfortably. No chest pain. No cough or abdominal pain. No nausea, vomiting or diarrhea. PHYSICAL EXAMINATION: Blood pressure 117/50 with a pulse of 53, temperature 96.3. He is 96% on room air. General description is an elderly male lying in bed in no distress. Respiratory system: Unlabored breathing. Clear to auscultation anteriorly. Heart S1, S2 regular rate and rhythm. Abdomen soft. No tenderness. LABS: No new lab have been obtained today. Culture has been negative. DIAGNOSTIC IMPRESSION AND PLAN: Patient with elevated white count could be more likely multifactorial with a question of possible drug infection versus symptoms of urinary tract infection and colonic distention from the chronic constipation. Overall improvement, will switch over to a short course of oral Augmentin. Continue supportive care. MMODL / IJN: [id number] /
[2017-05-28] MEDS ORDERED: AMOXIC-POT CLAV 875-125MG 1 EACH TAB PO SCH (21:00)
== END 2017-05-28 16:02 | DRG 871 ==
LOC: EC 13:10 → 4MS4W 17:09
PROVIDERS: ADMIT Internal Medicine; ATTEND Internal Medicine
DX: A41.9 Sepsis, unspecified organism (principal); G93.41 Metabolic encephalopathy; G20 Parkinson's disease; F03.90 Unspecified dementia, unspecified severity, without behavioral disturbance, psychotic disturbance, mood disturbance, and anxiety; K51.90 Ulcerative colitis, unspecified, without complications; N39.0 Urinary tract infection, site not specified; E78.5 Hyperlipidemia, unspecified; D72.819 Decreased white blood cell count, unspecified; I10 Essential (primary) hypertension; I25.10 Atherosclerotic heart disease of native coronary artery without angina pectoris; K21.9 Gastro-esophageal reflux disease without esophagitis; K56.41 Fecal impaction; K64.9 Unspecified hemorrhoids; M19.90 Unspecified osteoarthritis, unspecified site; N20.0 Calculus of kidney; Z79.82 Long term (current) use of aspirin; Z79.899 Other long term (current) drug therapy; Z82.0 Family history of epilepsy and other diseases of the nervous system; Z82.49 Family history of ischemic heart disease and other diseases of the circulatory system; Z87.891 Personal history of nicotine dependence; Z95.1 Presence of aortocoronary bypass graft
CPT/HCPCS: 36415; 70450; 70496; 70498; 74000; 74176; 80048; 80053; 80061; 81001; 82150; 83690; 83735; 85025; 85027; 87040; 87086; 87324; 96360; 96365; 99285

== ENCOUNTER 2017-07-31 08:32 | Observation (INO) | payer MEDICARE ==
[2017-07-31] MEDS ORDERED: SODIUM CHLORIDE 0.9% 500 ML IV STA (08:58)
--- NOTE | 2017-07-31 09:03 | ED ---
Abdominal Pain HPI - General Chief Complaint: Abdominal Pain Stated Complaint: constipated Time Seen by Provider: 07/31/17 08:53 Source: patient Mode of arrival: wheelchair Limitations: no limitations - History of Present Illness Initial Comments: 86-year-old male patient with past medical history significant for severe constipation, Parkinson's disease, and Alzheimer's disease is brought in by for evaluation of abdominal pain and constipation. Patient is a poor historian and does not contribute much to history. states that he has not had a bowel movement for the last 4 days. She states that today he began complaining of left-sided abdominal pain. She states that he has vomited one time over the last 4 days however believes it was a component of GERD. She states he is urinating without difficulty. She states that he does have history of chronic leg pain does not move around much. She denies any use of opiate pain medications. She states that he did have a previous episode of constipation where he was admitted for 9 days and had to have many enemas to relieve the blockage. Patient denies any recent rash, fever, chills, shortness breath, chest pain, back pain, numbness, tingling, headache, dizziness, weakness , hematuria, dysuria, urinary urgency, urinary frequency, or any other complaints. - Related Data Home Medications Medication Instructions Recorded Confirmed Aspirin EC [Ecotrin Low Dose] 81 mg PO DAILY 01/28/17 07/31/17 Filgrastim Sndz [Neupogen] 480 mcg SQ TUFR 01/28/17 07/31/17 [place]-3 Fatty Acids/Fish Oil [Fish 1 cap PO DAILY 01/28/17 07/31/17 Oil 1,000 mg Capsule] Pravastatin Sodium [Pravachol] 40 mg PO DAILY 01/28/17 07/31/17 Tamsulosin [Flomax] 0.4 mg PO DAILY 01/28/17 07/31/17 amLODIPine [Norvasc] 5 mg PO DAILY 01/28/17 07/31/17 Coconut Oil 1 tab PO DAILY 05/19/17 07/31/17 Donepezil 23mg 23 mg PO HS 05/19/17 07/31/17 Chlorpheniramine Maleate 4 mg PO DAILY PRN 07/31/17 07/31/17 [Chlor-Trimeton] Allergies Allergy/AdvReac Type Severity Reaction Status Date / Time pregabalin [From Lyrica] Allergy Unknown Verified 07/31/17 12:31 Review of Systems ROS Statement: Those systems with pertinent positive or pertinent negative responses have been documented in the HPI. ROS Other: All systems not noted in ROS Statement are negative. 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, low white counts, Parkinson's Disease History of Any Multi-Drug Resistant Organisms: None Reported Past Surgical History: Coronary Bypass/CABG Past Anesthesia/Blood Transfusion Reactions: No Reported Reaction Past Psychological History: No Psychological Hx Reported Smoking Status: Former smoker Past Alcohol Use History: None Reported Past Drug Use History: None Reported - Past Family History Mother Additional Family Medical History / Comment(s): parkinson Father Family Medical History: Coronary Artery Disease (CAD) General Exam Limitations: no limitations General appearance: in no apparent distress, other (This is a well-developed, well-nourished adult male patient in no acute distress. Patient does appear drowsy. Vital signs upon presentation are temperature 97.0F, pulse 86, respirations 18, blood pressure 133/66, pulse ox 96% on room air.) Eye exam: Present: normal appearance, PERRL, EOMI. Absent: scleral icterus, conjunctival injection, periorbital swelling ENT exam: Present: normal exam, normal oropharynx, mucous membranes moist Respiratory exam: Present: normal lung sounds bilaterally. Absent: respiratory distress, wheezes, rales, rhonchi, stridor Cardiovascular Exam: Present: regular rate, normal rhythm, normal heart sounds. Absent: systolic murmur, diastolic murmur, rubs, gallop, clicks GI/Abdominal exam: Present: soft, tenderness (Left lower quadrant), normal bowel sounds. Absent: distended, guarding, rebound, rigid Neurological exam: Present: CN II-XII intact. Absent: alert (Drowsy), oriented X3 (Oriented 2) Psychiatric exam: Present: normal affect, normal mood Skin exam: Present: warm, dry, intact, pallor. Absent: rash Course Vital Signs 07/31/17 07/31/17 07/31/17 08:34 11:01 12:10 Temperature 97.0 F L 97.5 F L Pulse Rate 86 80 81 Respiratory 18 16 16 Rate Blood Pressure 133/66 147/67 141/63 O2 Sat by Pulse 96 93 L 94 L Oximetry 07/31/17 07/31/17 13:47 15:34 Temperature 97.9 F 98 F Pulse Rate 68 69 Respiratory 16 15 Rate Blood Pressure 137/97 135/65 O2 Sat by Pulse 96 94 L Oximetry Medical Decision Making - Medical Decision Making 86-year-old male patient is hot to the emergency department today for evaluation of left-sided abdominal pain and constipation. Physical examination did reveal some left lower abdominal tenderness. Patient is a poor historian and is unable to contribute much to history. Most history comes from . Labs are reviewed and did show white blood cell count of 38, neutrophil count of 34.2, however did instruct Neupogen injection last evening. Patient does receive these twice weekly for low white blood cell count. BUN was 36, creatinine is 1.89. This is a new finding for the patient. Lactic acid 1.2. Urinalysis did show 1+ protein, moderate amount of blood, trace leukocyte esterase, 29 red blood cells, 9 white blood cells, and rare urine mucus. This has been sent for culture. We did attempt to do a enema administration 2 with very little output. We will admit patient at this time for further evaluation, IV fluids will be provided for the acute kidney injury. We did administer milk of magnesia here in the department and have ordered this as needed as well. Dr. Glover is accepting. - Lab Data Result diagrams: 07/31/17 09:35 07/31/17 09:35 Lab Results 07/31/17 07/31/17 07/31/17 Range/Units 09:35 09:35 11:10 WBC 38.0 H* (3.8-10.6) k/uL RBC 4.10 L (4.30-5.90) m/uL Hgb 13.0 (13.0-17.5) gm/dL Hct 40.2 (39.0-53.0) % MCV 98.1 D (80.0-100.0) fL MCH 31.8 (25.0-35.0) pg MCHC 32.4 (31.0-37.0) g/dL RDW 14.8 (11.5-15.5) % Plt Count 96 L (150-450) k/uL Neutrophils % (Manual) 88 % Band Neutrophils % 2 % Lymphocytes % (Manual) 8 % Monocytes % (Manual) 2 % Neutrophils # (Manual) 34.20 H (1.3-7.7) k/uL Lymphocytes # (Manual) 3.04 (1.0-4.8) k/uL Monocytes # (Manual) 0.76 (0-1.0) k/uL Nucleated RBCs 0 (0-0) /100 WBC Manual Slide Review Performed Toxic Granulation Present Large Platelets Present Poikilocytosis (manual Present Sodium 142 (137-145) mmol/L Potassium 4.9 (3.5-5.1) mmol/L Chloride 105 (98-107) mmol/L Carbon Dioxide 25 (22-30) mmol/L Anion Gap 12 mmol/L BUN 36 H (9-20) mg/dL Creatinine 1.89 H (0.66-1.25) mg/dL Est GFR (MDRD) Af Amer 41 (>60 ml/min/1.73 sqM) Est GFR (MDRD) Non-Af 34 (>60 ml/min/1.73 sqM) Glucose 107 H (74-99) mg/dL Plasma Lactic Acid Ottoniel 1.2 (0.7-2.0) mmol/L Calcium 10.4 H (8.4-10.2) mg/dL Total Bilirubin 1.1 (0.2-1.3) mg/dL AST 39 (17-59) U/L ALT 55 (21-72) U/L Alkaline Phosphatase 125 (38-126) U/L Total Protein 6.6 (6.3-8.2) g/dL Albumin 4.0 (3.5-5.0) g/dL Amylase <30 L (30-110) U/L Lipase 14 L (23-300) U/L Urine Color Urine Appearance (Clear) Urine pH (5.0-8.0) Ur Specific [place] (1.001-1.035) Urine Protein (Negative) Urine Glucose (UA) (Negative) Urine Ketones (Negative) Urine Blood (Negative) Urine Nitrite (Negative) Urine Bilirubin (Negative) Urine Urobilinogen (<2.0) mg/dL Ur Leukocyte Esterase (Negative) Urine RBC (0-5) /hpf Urine WBC (0-5) /hpf Urine Mucus (None) /hpf 07/31/17 Range/Units 12:10 WBC (3.8-10.6) k/uL RBC (4.30-5.90) m/uL Hgb (13.0-17.5) gm/dL Hct (39.0-53.0) % MCV (80.0-100.0) fL MCH (25.0-35.0) pg MCHC (31.0-37.0) g/dL RDW (11.5-15.5) % Plt Count (150-450) k/uL Neutrophils % (Manual) % Band Neutrophils % % Lymphocytes % (Manual) % Monocytes % (Manual) % Neutrophils # (Manual) (1.3-7.7) k/uL Lymphocytes # (Manual) (1.0-4.8) k/uL Monocytes # (Manual) (0-1.0) k/uL Nucleated RBCs (0-0) /100 WBC Manual Slide Review Toxic Granulation Large Platelets Poikilocytosis (manual Sodium (137-145) mmol/L Potassium (3.5-5.1) mmol/L Chloride (98-107) mmol/L Carbon Dioxide (22-30) mmol/L Anion Gap mmol/L BUN (9-20) mg/dL Creatinine (0.66-1.25) mg/dL Est GFR (MDRD) Af Amer (>60 ml/min/1.73 sqM) Est GFR (MDRD) Non-Af (>60 ml/min/1.73 sqM) Glucose (74-99) mg/dL Plasma Lactic Acid Ottoniel (0.7-2.0) mmol/L Calcium (8.4-10.2) mg/dL Total Bilirubin (0.2-1.3) mg/dL AST (17-59) U/L ALT (21-72) U/L Alkaline Phosphatase (38-126) U/L Total Protein (6.3-8.2) g/dL Albumin (3.5-5.0) g/dL Amylase (30-110) U/L Lipase (23-300) U/L Urine Color Yellow Urine Appearance Clear (Clear) Urine pH 7.0 (5.0-8.0) Ur Specific [place] 1.017 (1.001-1.035) Urine Protein 1+ H (Negative) Urine Glucose (UA) Negative (Negative) Urine Ketones Negative (Negative) Urine Blood Moderate H (Negative) Urine Nitrite Negative (Negative) Urine Bilirubin Negative (Negative) Urine Urobilinogen 2.0 (<2.0) mg/dL Ur Leukocyte Esterase Trace H (Negative) Urine RBC 29 H (0-5) /hpf Urine WBC 9 H (0-5) /hpf Urine Mucus Rare H (None) /hpf - Radiology Data Radiology results: report reviewed, image reviewed 2 views of the abdomen are obtained and show a dilated loop what is felt to be colon in the mid abdomen, this measures 13 cm in diameter. There is a large amount of retained stool noted in the descending colon. Impression by Dr. Solis shows dilated loop of what is felt to be colon in mid abdomen measuring up to 14 mm in diameter. This could be related to volvulus. Follow up required. CT of the abdomen and pelvis was obtained, report was reviewed in its entirety. Impression by Dr. Solis shows mild the enterocolitis noted in the sigmoid colon as well as the rectum. Specifically the bowel showed no evidence of bowel obstruction. There is moderate amount of inspissated stool noted in the descending colon and the rectum. There is some rectal wall thickening which could be due to see enterocolitis. There is small fat filled umbilical hernia. It is calcifications noted a large prostate gland which impresses upon the inferior aspect of the urinary bladder. The seminal vesicles are prominent. Disposition Clinical Impression: Abdominal pain, Constipation, Acute kidney injury Disposition: ADMITTED IP TO THIS [facility] Condition: Serious Referrals: Kelly Gong III, MD [Primary Care Provider] - 1-2 days Decision to Admit Reason: Admit from EC Decision Date: 07/31/17 Decision Time: 15:37
--- NOTE | 2017-07-31 09:56 | XR ---
Exam: Abdomen KUB TECHNIQUE: 2 views of the abdomen was obtained COMPARISON: May 19, 2017 HISTORY: Abdominal pain FINDINGS: There is dilated loop of what is felt to be colon in the mid abdomen, this loop measures 13 cm in nicolas meter. There is a large amount of retained stool noted in the descending colon. IMPRESSION: Dilated loop of what is felt to be colon in the mid abdomen measuring 14 mm in diameter. This could b e related to volvulus. Follow-up is required.
[2017-07-31] MEDS ORDERED: RX INFO: IV CONTRAST WAS GIVEN 1 EACH MISC MISCELLANE PRN (10:08)
[2017-07-31 10:11] LABS: ALT 55 U/L (21-72); AST 39 U/L (17-59); Alkaline Phosphatase 125 U/L (38-126); Amylase <30 U/L (30-110); Anion Gap 12 mmol/L; Blood Urea Nitrogen 36 mg/dL (9-20); Calcium 10.4 mg/dL (8.4-10.2); Carbon Dioxide 25 mmol/L (22-30); Chloride 105 mmol/L (98-107); Glucose 107 mg/dL (74-99); HCT 40.2 % (39.0-53.0); Lipase 14 U/L (23-300); MCH 31.8 pg (25.0-35.0); MCHC 32.4 g/dL (31.0-37.0); MCV 98.1 fL (80.0-100.0); Mean Platelet Volume 8.8; Potassium 4.9 mmol/L (3.5-5.1); RDW 14.8 % (11.5-15.5); Sodium 142 mmol/L (137-145); Total Bilirubin 1.1 mg/dL (0.2-1.3); Total Protein 6.6 g/dL (6.3-8.2)
[2017-07-31 10:28] LABS: Band Neutrophils % 2 %; Lymphocytes # (M) 3.04 k/uL (1.0-4.8); Monocytes # (M) 0.76 k/uL (0-1.0); Neutrophils % (M) 88 %; Nucleated Red Blood Cells 0 /100 WBC (0-0); Total Cells Counted 100; Toxic Granulation Present
[2017-07-31 10:29] LABS: Poikilocytosis (M) Present
[2017-07-31 10:33] LABS: Large Platelets Present; Platelet Count 96 k/uL (150-450)
--- NOTE | 2017-07-31 11:04 | CT ---
EXAMINATION TYPE: CT abdomen pelvis wo con DATE OF EXAM: 07/31/2017 COMPARISON: May 22, 2017. HISTORY: Constipated, generalized abdominal pain. CT DLP: 574.2 mGycm Automated exposure control for dose reduction was used. TECHNIQUE: Helical acquisition of images was performed from the lung bases through the pelvis. FINDINGS: LUNG BASES: Mild dependent changes are noted. A small hiatal hernia is noted. LIVER/GB: No significant abnormality is appreciated. PANCREAS: No significant abnormality is seen. SPLEEN: No significant abnormality is seen. ADRENALS: No significant abnormality is seen. KIDNEYS: No significant abnormality is seen. FREE AIR: No free air is visualized RETROPERITONEAL ADENOPATHY: None visualized REPRODUCTIVE ORGANS: No significant abnormality is seen URINARY BLADDER: No significant abnormality is seen. PELVIC ADENOPATHY: None visualized. OSSEOUS STRUCTURES: No significant abnormality is seen. BOWEL: No evidence of bowel obstruction is identified. There is moderate amount of inspissated stool noted in the descending colon and the rectum. There is some rectal wall thickening which could be du e to steatocolitis. There is a small fat filled umbilical hernia. There are calcifications noted in an enlarged prostate gland which impresses upon the inferior aspect of the urinary bladder. The seminal vesicles are promi nent. There is metallic focus adjacent to the left common femoral artery. This of unknown etiology or signi ficance. Could be related to prior vascular intervention there is questionably a vascular graft ident ified. OTHER: Extensive calcifications are identified in the visualized aorta. There is no aneurysmal dilata tion. There is no free air or free fluid. IMPRESSION: MILD STEATOCOLITIS IS NOTED IN THE SIGMOID COLON WELL THE RECTUM.
[2017-07-31 12:25] LABS: Appearance,Urine Clear (Clear); Bilirubin,Urine Negative (Negative); Blood,Urine Moderate (Negative); Color,Urine Yellow; Glucose,Urine (UA) Negative (Negative); Ketones,Urine Negative (Negative); Leukocyte Esterase,Urine Trace (Negative); Mucus,Urine Rare /hpf; Nitrite,Urine Negative (Negative); Protein,Urine 1+ (Negative); RBC,Urine 29 /hpf (0-5); Specific Gravity,Urine 1.017 (1.001-1.035); WBC,Urine 9 /hpf (0-5)
[2017-07-31] MEDS ORDERED: NALOXONE 0.4 MG/ML 1 ML VIAL IV PRN (15:22)
[2017-07-31] MEDS ORDERED: MAGNESIUM HYDROXIDE 2,400 MG/10 ML CUP PO PRN (15:22)
[2017-07-31] MEDS ORDERED: MAGNESIUM HYDROXIDE 2,400 MG/10 ML CUP PO STA (15:24)
[2017-07-31] MEDS: SODIUM CHLORIDE 0.9% 1,000 ML IV SCH (15:31)
[2017-07-31] MEDS: ACETAMINOPHEN TAB 325 MG TAB PO PRN (20:40)
[2017-07-31 20:54] VITALS: BMI 25.5
[2017-07-31] MEDS ORDERED: HALOPERIDOL LACTATE 5 MG/ML 1 ML VIAL IM PRN (21:01)
[2017-07-31] MEDS: QUEtiapine 25 MG TAB PO SCH (21:30)
[2017-08-01] MEDS: ACETAMINOPHEN TAB 325 MG TAB PO PRN (06:04)
[2017-08-01 10:09] LABS: Basophils % (A) 0 %; Eosinophils % (A) 0 %; HGB 11.4 gm/dL (13.0-17.5); Lymphocytes % (A) 11 %; MCH 32.1 pg (25.0-35.0); MCHC 32.7 g/dL (31.0-37.0); MCV 98.1 fL (80.0-100.0); Mean Platelet Volume 8.9; Monocytes # (A) 0.9 k/uL (0-1.0); Monocytes % (A) 10 %; Neutrophils # (A) 6.9 k/uL (1.3-7.7); Neutrophils % (A) 76 %; RBC 3.56 m/uL (4.30-5.90); RDW 14.5 % (11.5-15.5); WBC 9.1 k/uL (3.8-10.6)
[2017-08-01 10:25] LABS: Platelet Count 79 k/uL (150-450)
[2017-08-01 10:34] LABS: Calcium 9.4 mg/dL (8.4-10.2); Potassium 4.1 mmol/L (3.5-5.1)
[2017-08-01] MEDS: Acetaminophen-Codeine 300-30mg TAB PO PRN ×2 (10:39→20:09)
[2017-08-01] MEDS: SODIUM CHLORIDE 0.9% 1,000 ML IV SCH ×3 (11:57→20:11)
[2017-08-01] MEDS: QUEtiapine 25 MG TAB PO SCH (20:09)
--- NOTE | 2017-08-01 21:03 | HP ---
HISTORY AND PHYSICAL DATE OF SERVICE: 08/01/2017 CHIEF COMPLAINT: Constipation. BRIEF HISTORY: 86-year-old male patient with history of Parkinson disease and Alzheimer's dementia, brought into the emergency department with a complaint of abdominal pain and constipation. Patient is has dementia, is unable to provide any history, so most of the history is obtained from the chart from documentation from 's history according to which the patient had not have any bowel movement for 4 days and the day of admission he started complaining of left-sided abdominal pain. He also had an episode of vomiting. According to records, the also stated the patient was having difficulty urinating. The patient is not on any opioid. Does have a history of constipation. He had he had a similar episode in the past. He was admitted for 9 days for constipation, fecal impaction. PAST MEDICAL HISTORY: Significant for coronary artery disease, history of chest pain, angina, dementia, gastroesophageal reflux disease, hypertension, hyperlipidemia, Parkinson's disease. PAST SURGICAL HISTORY: Significant for coronary artery bypass grafting. SOCIAL HISTORY: Patient is a is a former smoker per records. No history of alcohol or drug abuse. FAMILY HISTORY: Significant for Parkinson's disease in mother and coronary artery disease in father. He is allergic to Lyrica. MEDICATIONS: Patient is on aspirin 81 mg daily, Neupogen 480 mcg subcu Tuesdays and Fridays, Pravachol 40 mg p.o. daily, Flomax 0.4 mg p.o. daily, Norvasc 5 mg p.o. daily, and Aricept 23 mg p.o. q.h.s. REVIEW OF SYSTEMS: The patient does not does not provide any sound answers to any questions asked. Provided for 14-point review of system is negative besides history of present illness. PHYSICAL EXAMINATION: The patient is awake and alert. He is in no acute distress. He is well developed, well nourished adult male. VITAL SIGNS: Temperature 97, pulse 86, respiration 18, blood pressure 133/66, O2 saturation 96% on room air. HEENT: Atraumatic, normocephalic. Pupils equal and reactive to light. Extraocular movements intact. Conjunctiva are clear. NECK: Supple. No goiter or lymphadenopathy. JVD is negative. No carotid bruit heard. RESPIRATORY SYSTEM: Lungs are clear to auscultate. No rales, rhonchi, or wheezes. CARDIOVASCULAR SYSTEM: Heart is regular rate and rhythm without any murmurs or gallop rhythm. ABDOMEN: Soft. Mild tenderness left lower quadrant. Bowel sounds are positive. No guarding, rigidity. EXTREMITIES: No edema, clubbing, cyanosis. NEUROLOGICAL EXAMINATION: Cranial nerves 2-12 grossly intact. Patient is alert, oriented to 1 and 2. PSYCHIATRIC EXAMINATION: Patient has normal mood. SKIN EXAMINATION: Skin is warm, dry, and intact. No rashes or pigmentation. LAB: Labs and x-ray data done on admission: CBC, white blood count of 38, hemoglobin 13, hematocrit 40, and platelet count of 196. Chemical profile 9.6 on admission. Today's CBC, white blood count 9.1, hemoglobin 11.4, hematocrit 35.3, platelet count of 79. Chemical profile, sodium 145, potassium 4.1, chloride 110, bicarb 25, BUN 40, creatinine 1.90. UA with trace leukocyte esterase, moderate blood and 1+ protein. CT of the abdomen shows mild the steatocolitis in the sigmoid colon and rectal area. ASSESSMENT: 1. Abdominal pain, mild colitis, inflammatory versus infectious. 2. Constipation. 3. Acute kidney injury. 4. Coronary artery disease. 5. Hypertension. 6. Hyperlipidemia. 7. Parkinson's disease. PLAN: Admit the patient to regular medical floor. We will start on IV fluids. Will monitor renal function and electrolytes. Will monitor I and Os. Will administer an enema and monitor for bowel function. Blood cultures were obtained in the ER. Will not start on any antibiotics and since the elevated white blood count might be just because of Neupogen, will wait for repeat blood counts. Continue with the IV fluids. Will continue with home medications. We will administer DVT prophylaxis. The patient is a full code. MMODL / IJN: [id number] /
[2017-08-02] MEDS: Acetaminophen-Codeine 300-30mg TAB PO PRN (05:47)
[2017-08-02] MEDS: SODIUM CHLORIDE 0.9% 1,000 ML IV SCH (07:22)
[2017-08-02 07:58] LABS: Basophils % (A) 0 %; Eosinophils % (A) 0 %; HGB 11.6 gm/dL (13.0-17.5); Lymphocytes % (A) 18 %; MCH 31.3 pg (25.0-35.0); MCHC 31.3 g/dL (31.0-37.0); MCV 100.2 fL (80.0-100.0); Macrocytosis Slight; Mean Platelet Volume 9.3; Monocytes # (A) 0.8 k/uL (0-1.0); Monocytes % (A) 14 %; Neutrophils # (A) 3.6 k/uL (1.3-7.7); Neutrophils % (A) 65 %; RBC 3.69 m/uL (4.30-5.90); RDW 14.4 % (11.5-15.5); WBC 5.6 k/uL (3.8-10.6)
[2017-08-02 08:07] LABS: Calcium 8.8 mg/dL (8.4-10.2); Potassium 4.2 mmol/L (3.5-5.1)
[2017-08-02 08:08] LABS: Platelet Count 94 k/uL (150-450)
[2017-08-02] MEDS: SODIUM CHLORIDE 0.45% 1,000 ML IV SCH ×2 (14:29→20:11)
[2017-08-02] MEDS: QUEtiapine 25 MG TAB PO SCH (20:11)
--- NOTE | 2017-08-02 21:50 | PN ---
PROGRESS NOTE DATE OF SERVICE: 08/02/2017. The patient has been ambulating on the hallway but per continues to complain of abdominal pain. Had detailed discussion with the over the phone. states that she was in earlier today and patient was still complaining of abdominal pain and wants it further investigated. Vital signs temperature 96.3, pulse 55, respiration 20, blood pressure 139/69, O2 saturation 92% on room air. HEENT: Atraumatic, normocephalic. Pupils equal and reactive to light. Extraocular movements intact. Buccal mucosa is moist. Neck is supple. No goiter or lymphadenopathy. JVD is negative. No carotid bruit heard. Lungs are clear to auscultate. No rales, rhonchi, or wheezes. Cardiovascular: Heart is regular rate and rhythm without any murmurs or gallop rhythm. Abdomen and GI: Abdomen is soft, nontender. Bowel sounds are positive. . Extremities no edema, clubbing or cyanosis. Neurological examination: Cranial nerves 2-12 grossly intact. Patient has dementia, but does move all extremities. Skin: Warm and dry and intact. LABS: Labs shows a CBC, white blood count of 5.6, hemoglobin 11.6, hematocrit 37, and platelet count of 94. Chemical profile sodium 141, potassium 4.2, chloride 108, bicarb 25, BUN 35, creatinine 2.01. ASSESSMENT: 1. Acute renal failure. 2. Persistent abdominal pain. The etiology is unclear. 3. Constipation. 4. Coronary artery disease. 5. Hypertension. 6. Hyperlipidemia. 7. Parkinson disease. PLAN: Change the IV fluids to half-normal saline. Increase the rate to 125 mL an hour. We will monitor I's and O's. Will monitor renal function and electrolytes. The patient did have a bowel movement yesterday, but continues to complain of abdominal pain off and on. We will consult Gastroenterology for any further recommendations. Blood cultures have been negative. The patient's white blood count that was markedly elevated, possibly secondary to Neupogen is down to normal. No signs of sepsis. We will wait for further recommendations from Gastroenterology. MMODL / IJN: [id number] /
[2017-08-03] MEDS: LORazepam 2 MG/ML INJ IV PRN ×3 (01:02→23:14)
[2017-08-03] MEDS: SODIUM CHLORIDE 0.45% 1,000 ML IV SCH ×3 (07:13→23:06)
[2017-08-03] MEDS: Acetaminophen-Codeine 300-30mg TAB PO PRN (07:43)
[2017-08-03] MEDS: amLODIPine 5 MG TAB PO SCH (07:43)
[2017-08-03] MEDS: ASPIRIN 81 MG PO SCH (07:43)
[2017-08-03 07:51] LABS: HGB 12.5 gm/dL (13.0-17.5); MCH 31.7 pg (25.0-35.0); MCHC 31.2 g/dL (31.0-37.0); MCV 101.7 fL (80.0-100.0); Macrocytosis Slight; Mean Platelet Volume 8.7; Platelet Count 110 k/uL (150-450); RBC 3.93 m/uL (4.30-5.90); RDW 14.1 % (11.5-15.5); WBC 6.2 k/uL (3.8-10.6)
[2017-08-03 08:00] LABS: Calcium 8.9 mg/dL (8.4-10.2); Potassium 4.4 mmol/L (3.5-5.1)
[2017-08-03 08:27] LABS: Basophils # (M) 0.06 k/uL (0-0.2); Lymphocytes # (M) 0.68 k/uL (1.0-4.8); Neutrophils # (M) 4.15 k/uL (1.3-7.7); Neutrophils % (M) 67 %; Nucleated Red Blood Cells 0 /100 WBC (0-0); Total Cells Counted 100
[2017-08-03] MEDS: POLYETHYLENE GLYCOL 3350 17 GM POWD.PACK PO SCH (10:27)
--- NOTE | 2017-08-03 10:39 | CONS ---
CONSULTATION DATE OF SERVICE: 08/03/2017 REQUESTING PHYSICIAN: Dr. Gong. REASON FOR CONSULTATION: Abdominal pain and constipation. HISTORY OF PRESENT ILLNESS: The patient is an 86-year-old male with history of dementia, Parkinson disease, came to the emergency room 2 days ago complaining of abdominal pain, headaches, chest pain, not feeling well. Most of the history was obtained from the patient as well as the nursing staff caring for him as he is a very poor historian and has history of dementia. Apparently, he was having some abdominal pain, screaming at home and the brought him to the emergency room. He was not having any bowel movements for the last 3 or 4 days. He was given an enema at the time of admission to the hospital, had 2 bowel movements 2 days ago, but since did not have any bowel movements. This morning he says states that he does not have any abdominal pain, but he has been having a terrible headache. He had some nausea, but no emesis, able to tolerate diet well. No rectal bleeding. As per the hospital records, he had hospitalization before and underwent fecal disimpaction for severe constipation. He does not recall ever having any colonoscopy in the past. PAST MEDICAL HISTORY: Significant for Parkinson disease, dementia, hypertension, coronary artery disease, status post CABG several years ago, GERD. PAST SURGICAL HISTORY: CABG. MEDICATIONS AT HOME: Aspirin, Neupogen, Pravachol, Flomax, Norvasc, Aricept. SOCIAL HISTORY: No smoking. No alcohol use. FAMILY HISTORY: Unremarkable. REVIEW OF SYSTEMS: The patient is a very poor historian and hence the review of systems could not be done. PHYSICAL EXAMINATION: He is , not in distress, awake, oriented to name, not to place and time. Vital signs are stable. Blood pressure is 159/71, pulse is 79, temperature 96.3. HEENT EXAMINATION: Unremarkable. Conjunctivae pink. Sclerae anicteric. Oral cavity, no lesions. NECK: No JVD or lymph node enlargement. Chest was clear to auscultation. HEART: Regular rate and rhythm. ABDOMEN: Soft. Bowel sounds are positive. No organomegaly. EXTREMITIES: No pedal edema. SKIN: No rashes. NEURO: Alert and oriented x3. No focal deficits. LABS: Labs done at the time of admission to the hospital, WBC 6.2, hemoglobin 12.5, platelets 110. BUN 32, creatinine 1.9. ALT, AST, T-bili, alkaline phosphatase are within normal limits. CAT scan of the abdomen shows some thickening of the sigmoid colon. IMPRESSION: Patient with history of dementia and Parkinson disease, admitted to the hospital with vague symptoms including abdominal pain, chest pain, headache, constipation on and off for the last several months duration. Apparently, he did have an admission to the hospital several months ago with severe constipation, fecal disimpaction. He was given a couple of enemas 2 nights ago and he had 2 bowel movements yesterday as per the nursing staff. This morning, his abdomen feels very benign and soft. Clinically no evidence of obstruction. CAT scan of the abdomen shows some thickening of the sigmoid colon. RECOMMENDATIONS: 1. We will start him on osmotic laxative with MiraLAX 1 scoop daily. 2. Enemas as needed. 3. No need for any endoscopic workup. 4. We will follow him closely during this hospital stay. Thank you for this consultation. MMODL / IJN: [id number] /
[2017-08-03] MEDS: ACETAMINOPHEN TAB 325 MG TAB PO PRN (11:15)
--- NOTE | 2017-08-03 19:24 | PN ---
PROGRESS NOTE DATE OF SERVICE: 08/03/2017 Patient is resting comfortably in bed; now claims that he is hurting all over. PHYSICAL EXAMINATION: VITAL SIGNS: Temperature 97.5, pulse 68, respiratory rate 16, blood pressure 162 /72, oxygen saturation 92% on room air. HEENT: Atraumatic, normocephalic. Pupils equal and reactive to light. Extraocular movements intact. Buccal mucosa is moist. Neck is supple. No goiter or lymphadenopathy. JVD is negative. No carotid bruit heard. Lungs are clear to auscultate. No rales, rhonchi, wheezes. Heart is regular rate and rhythm without any murmurs, gallop rhythm. Abdomen remains soft and benign. No tenderness. No distention. Bowel sounds are positive. EXTREMITIES: The patient moves all 4 extremities. No edema. NEUROLOGICAL EXAMINATION: Patient has dementia but moves all extremities. LAB DATA: CBC: white blood count of 6.2, hemoglobin 12.5, hematocrit 40, and platelet count of 110. Chemical profile: sodium 139, potassium 4.4, chloride 106, bicarb 22, BUN 32, creatinine 1.92. ASSESSMENT: 1. Acute renal failure. The patient remains on IV fluids. Creatinine is slowly improving. Will continue with the IV fluids. Will monitor I&O and monitor renal function and electrolytes. 2. Persistent abdominal pain. GI was consulted. The patient was started on MiraLAX and enemas as needed. Per GI, no need for endoscopy. 3. Constipation. As above, MiraLAX and enemas have been started by GI. 4. Coronary artery disease, clinically stable. 5. Hypertension. The patient's systolic blood pressure is elevated. Will continue to monitor and adjust medications if needed. PLAN: To continue the current medications, continue fluids, monitor electrolytes. Possible discharge in the next 24 to 48 hours once renal function improves. MMODL / IJN: [id number] / [email or web address]
[2017-08-03] MEDS: QUEtiapine 25 MG TAB PO SCH (20:26)
[2017-08-04] MEDS: SODIUM CHLORIDE 0.45% 1,000 ML IV SCH ×2 (06:43→13:27)
[2017-08-04] MEDS: ASPIRIN 81 MG PO SCH (07:30)
[2017-08-04] MEDS: POLYETHYLENE GLYCOL 3350 17 GM POWD.PACK PO SCH (07:30)
[2017-08-04] MEDS: amLODIPine 5 MG TAB PO SCH (07:30)
[2017-08-04 08:37] LABS: Anion Gap 12 mmol/L; Blood Urea Nitrogen 24 mg/dL (9-20); Calcium 9.2 mg/dL (8.4-10.2); Carbon Dioxide 22 mmol/L (22-30); Chloride 105 mmol/L (98-107); Glucose 64 mg/dL (74-99); Potassium 4.3 mmol/L (3.5-5.1); Sodium 139 mmol/L (137-145)
[2017-08-04 15:31] VITALS: BP 138/69; PULSE 60; RESP 16; TEMP 96.9
--- NOTE | 2017-09-04 17:23 | DS ---
DISCHARGE SUMMARY DATE OF ADMISSION: 07/31/2017. DISCHARGE DATE: 08/04/2017. ADMISSION DIAGNOSES: 1. Abdominal pain, mild colitis, inflammatory versus infectious. 2. Constipation. 3. Acute renal injury. 4. Coronary artery disease. 5. Hypertension. 6. Hyperlipidemia. 7. Parkinson disease. DISCHARGE DIAGNOSES: 1. Acute colitis. 2. Constipation. 3. Acute renal injury. BRIEF HISTORY: This was an 86-year-old male patient with history of Parkinson disease and Alzheimer's dementia, came to emergency room with complaint of abdominal pain and constipation. The patient had advanced dementia, so most of the history was obtained from , according to whom, it was all going on for past 4 days. PAST MEDICAL HISTORY: Coronary artery disease, history of chest pain, angina, dementia, gastroesophageal reflux disease, hypertension, hyperlipidemia, and Parkinson disease. LAB AND X-RAY ON ADMISSION: CBC: White blood count of 38, hemoglobin 13, hematocrit 40, platelet count of 196. Chemical profile: Sodium 9.6. White blood count of 9.5, hemoglobin 11.4, hematocrit 35.3, and platelet count of 79. Chemical profile sodium 145, potassium 4.1, chloride 110, bicarb 25, BUN 40, creatinine 1.9. UA positive for leukocyte esterase. CT of the abdomen shows mild scattered colitis in the sigmoid colon area and rectal area mucosa. Patient was admitted to the regular floor, started on IV fluids. I and O's, renal function and electrolytes were monitored. The patient was given enema for constipation. Blood cultures were obtained. IV antibiotics were not started. The patient had recent administration of Neupogen causing elevated white blood count. IV fluids were continued. Home medications were carried on. The patient did show improvement with these measures. Abdominal pain persisted. GI consultation was done. The patient was started on MiraLAX and enema as needed. No need for endoscopy per GI. The patient remained stable, did not have any further complications. He was then discharged in a stable condition with a plan to follow up with the primary care physician and continue all current medications. CURRENT MEDICATIONS: 1. Tylenol #3 1 p.o. q.8 hours p.r.n. 2. MiraLAX 17 g p.o. daily. 3. Seroquel 25 mg p.o. q.h.s. 4. Aspirin 81 mg daily. 5. Chlor-Trimeton 4 mg p.o. daily. 6. Aricept 23 mg p.o. q.h.s. 7. Neupogen 480 mcg every Wednesday and Wednesday. 8. Amlodipine 5 mg daily. 9. Flomax 0.4 mg daily. 10.Pravachol 40 mg daily. 11.Patterson-3 fatty acids as home prescription. Advised to follow up with primary care physician, Dr. Gong in 1-2 days and continue with the home health services per [facility]. MMODL / IJN: [id number] /
== END 2017-08-04 15:51 | disposition home health service (06) ==
LOC: EC 08:32 → 4MS4W 15:37
PROVIDERS: ADMIT Internal Medicine; ATTEND Internal Medicine
DX: K59.00 Constipation, unspecified (principal); G30.9 Alzheimer's disease, unspecified; G20 Parkinson's disease; F02.80 Dementia in other diseases classified elsewhere, unspecified severity, without behavioral disturbance, psychotic disturbance, mood disturbance, and anxiety; K21.9 Gastro-esophageal reflux disease without esophagitis; G89.29 Other chronic pain; M79.606 Pain in leg, unspecified; I25.10 Atherosclerotic heart disease of native coronary artery without angina pectoris; E78.5 Hyperlipidemia, unspecified; I10 Essential (primary) hypertension; N42.9 Disorder of prostate, unspecified; D72.819 Decreased white blood cell count, unspecified; N17.9 Acute kidney failure, unspecified; Z79.82 Long term (current) use of aspirin; Z79.899 Other long term (current) drug therapy; Z88.6 Allergy status to analgesic agent; Z87.891 Personal history of nicotine dependence; Z95.1 Presence of aortocoronary bypass graft; Z82.49 Family history of ischemic heart disease and other diseases of the circulatory system
CPT/HCPCS: 96376; 96361 ×5; 96374; 99285; 36415; 80053; 80048 ×4; 82150; 83605; 83690; 85025 ×4; 81001; 87040; 74000; 74176; G0378 ×5; J2060

== ENCOUNTER 2017-12-25 10:41 | Inpatient (IN) | payer MEDICARE ==
[2017-12-25] MEDS ORDERED: SODIUM CHLORIDE 0.9% 1,000 ML IV STA (11:17)
--- NOTE | 2017-12-25 11:20 | ED ---
General Adult HPI - General Chief complaint: Weakness Stated complaint: Altered Mental Status Time Seen by Provider: 12/25/17 11:09 Source: patient, family, EMS, RN notes reviewed Mode of arrival: EMS Limitations: altered mental status - History of Present Illness Initial comments: Patient is a pleasant 87-year-old male presenting to the emergency department with family for generalized weakness. Patient had some symptoms yesterday evening. Patient had difficulty walking up stairs and needed assistance. This morning patient was unable to get out of bed and unable to walk. Patient did wet the bed. Patient has chronic dementia which is unchanged. No acute change in mental status. No isolated area of weakness. Patient denies any pain. Family states patient has had a little bit of a cough. - Related Data Home Medications Medication Instructions Recorded Confirmed Aspirin EC [Ecotrin Low Dose] 81 mg PO DAILY 01/28/17 12/25/17 Blakely-3 Fatty Acids/Fish Oil [Fish 1 cap PO DAILY 01/28/17 12/25/17 Oil 1,000 mg Capsule] Pravastatin Sodium [Pravachol] 40 mg PO DAILY 01/28/17 12/25/17 Tamsulosin [Flomax] 0.4 mg PO DAILY 01/28/17 12/25/17 amLODIPine [Norvasc] 5 mg PO DAILY 01/28/17 12/25/17 Coconut Oil 1 tab PO DAILY 05/19/17 12/25/17 Donepezil 23mg 23 mg PO HS 05/19/17 12/25/17 Filgrastim Sndz [Neupogen] 480 mcg IJ DIRECTED 12/25/17 12/25/17 Memantine [Namenda] 5 mg PO BID 12/25/17 12/25/17 Blakely-3/Dha/Epa/Fish Oil [Fish Oil 1 each PO DAILY 12/25/17 12/25/17 500 mg Softgel] Previous Rx's Medication Instructions Recorded Acetaminophen-Codeine 300-30mg 1 each PO Q8H PRN #30 tab 08/04/17 [Tylenol w/codeine #3] Allergies Allergy/AdvReac Type Severity Reaction Status Date / Time pregabalin [From Lyrica] Allergy Unknown Verified 12/25/17 10:53 Review of Systems ROS Statement: Those systems with pertinent positive or pertinent negative responses have been documented in the HPI. ROS Other: All systems not noted in ROS Statement are negative. Constitutional: Denies: fever Eyes: Denies: eye pain ENT: Denies: ear pain Respiratory: Reports: cough. Denies: dyspnea Cardiovascular: Denies: chest pain Endocrine: Denies: polydipsia Gastrointestinal: Denies: abdominal pain Genitourinary: Denies: dysuria Musculoskeletal: Denies: back pain Skin: Denies: rash Neurological: Reports: weakness, abnormal gait. 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, low white counts, Parkinson's Disease History of Any Multi-Drug Resistant Organisms: None Reported Past Surgical History: Coronary Bypass/CABG Past Anesthesia/Blood Transfusion Reactions: No Reported Reaction Past Psychological History: No Psychological Hx Reported Smoking Status: Former smoker Past Alcohol Use History: None Reported Past Drug Use History: None Reported - Past Family History Mother Additional Family Medical History / Comment(s): parkinson Father Family Medical History: Coronary Artery Disease (CAD) General Exam Limitations: altered mental status General appearance: alert, in no apparent distress Head exam: Present: atraumatic Eye exam: Present: normal appearance, PERRL, EOMI ENT exam: Present: normal oropharynx Neck exam: Present: normal inspection Respiratory exam: Present: normal lung sounds bilaterally Cardiovascular Exam: Present: regular rate, normal rhythm GI/Abdominal exam: Present: soft. Absent: tenderness exam: Present: normal inspection Extremities exam: Present: normal inspection Neurological exam: Present: alert, CN II-XII intact. Absent: motor sensory deficit Expanded Neurological exam: Present: protecting the airway Patient oriented to: Present: person, place. Absent: time (Family states this is normal) Speech: Present: fluid speech Cranial nerves: EOM's Intact: Normal Motor strength exam: RUE: 5, LUE: 5, RLE: 5, LLE: 5 Eye Response: (4) open spontaneously Motor Response: (6) obeys commands Verbal Response: (4) confused conversation Psychiatric exam: Present: normal affect, normal mood Skin exam: Present: normal color Course Vital Signs 12/25/17 12/25/17 12/25/17 10:45 13:35 14:47 Temperature 98.7 F Pulse Rate 59 L 72 69 Respiratory 20 18 18 Rate Blood Pressure 160/70 171/68 141/76 O2 Sat by Pulse 95 97 98 Oximetry EKG Findings - EKG Comments: EKG Findings:: Normal sinus rhythm 67. UT 158. QRS 136. QT 436. QTc 460. Left axis. Right bundle branch block. No acute ST change. Medical Decision Making - Medical Decision Making Patient reevaluated and resting comfortably in bed. states elevated white blood cell count is from Neupogen injection that patient just received. Cause of leg weakness is unclear at this time. Case was discussed in detail with Dr. Ayala, who will admit for Dr. Gong. Consult will be placed for neurology. Lab will be called again to draw a troponin level. - Lab Data Result diagrams: 12/25/17 12:50 12/25/17 12:50 Lab Results 12/25/17 12/25/17 12/25/17 Range/Units 11:58 12:50 12:50 WBC 26.9 H* (3.8-10.6) k/uL RBC 4.43 (4.30-5.90) m/uL Hgb 13.9 (13.0-17.5) gm/dL Hct 42.9 (39.0-53.0) % MCV 96.9 (80.0-100.0) fL MCH 31.3 (25.0-35.0) pg MCHC 32.3 (31.0-37.0) g/dL RDW 14.9 (11.5-15.5) % Plt Count 91 L (150-450) k/uL Neutrophils % Not Reportable Neutrophils % (Manual) 81 % Band Neutrophils % 1 % Lymphocytes % Not Reportable Lymphocytes % (Manual) 10 % Monocytes % Not Reportable Monocytes % (Manual) 8 % Eosinophils % Not Reportable Basophils % Not Reportable Neutrophils # Not Reportable Neutrophils # (Manual) 22.00 H (1.3-7.7) k/uL Lymphocytes # Not Reportable Lymphocytes # (Manual) 2.69 (1.0-4.8) k/uL Monocytes # Not Reportable Monocytes # (Manual) 2.15 H (0-1.0) k/uL Eosinophils # Not Reportable Basophils # Not Reportable Nucleated RBCs 0 (0-0) /100 WBC Polychromasia Present Sodium 145 (137-145) mmol/L Potassium 4.2 (3.5-5.1) mmol/L Chloride 104 (98-107) mmol/L Carbon Dioxide 24 (22-30) mmol/L Anion Gap 17 mmol/L BUN 19 (9-20) mg/dL Creatinine 1.00 (0.66-1.25) mg/dL Est GFR (CKD-EPI)AfAm 77 (>60 ml/min/1.73 sqM) Est GFR (CKD-EPI)NonAf 67 (>60 ml/min/1.73 sqM) Glucose 79 (74-99) mg/dL Plasma Lactic Acid Ottoniel (0.7-2.0) mmol/L Calcium 9.6 (8.4-10.2) mg/dL Magnesium 2.1 (1.6-2.3) mg/dL Total Bilirubin 1.1 (0.2-1.3) mg/dL AST 70 H (17-59) U/L ALT 43 (21-72) U/L Alkaline Phosphatase 149 H (38-126) U/L Total Creatine Kinase (55-170) U/L CK-MB (CK-2) (0.0-2.4) ng/mL CK-MB (CK-2) Rel Index Troponin I Total Protein 6.6 (6.3-8.2) g/dL Albumin 4.2 (3.5-5.0) g/dL Urine Color Yellow Urine Appearance Clear (Clear) Urine pH 6.0 (5.0-8.0) Ur Specific Whipple 1.020 (1.001-1.035) Urine Protein 1+ H (Negative) Urine Glucose (UA) Negative (Negative) Urine Ketones Negative (Negative) Urine Blood Small H (Negative) Urine Nitrite Negative (Negative) Urine Bilirubin Negative (Negative) Urine Urobilinogen 3.0 (<2.0) mg/dL Ur Leukocyte Esterase Negative (Negative) Urine RBC 7 H (0-5) /hpf Urine WBC 1 (0-5) /hpf Ur Squamous Epith Cells <1 (0-4) /hpf Urine Bacteria Rare H (None) /hpf Urine Mucus Few H (None) /hpf 12/25/17 12/25/17 Range/Units 12:50 12:50 WBC (3.8-10.6) k/uL RBC (4.30-5.90) m/uL Hgb (13.0-17.5) gm/dL Hct (39.0-53.0) % MCV (80.0-100.0) fL MCH (25.0-35.0) pg MCHC (31.0-37.0) g/dL RDW (11.5-15.5) % Plt Count (150-450) k/uL Neutrophils % Neutrophils % (Manual) % Band Neutrophils % % Lymphocytes % Lymphocytes % (Manual) % Monocytes % Monocytes % (Manual) % Eosinophils % Basophils % Neutrophils # Neutrophils # (Manual) (1.3-7.7) k/uL Lymphocytes # Lymphocytes # (Manual) (1.0-4.8) k/uL Monocytes # Monocytes # (Manual) (0-1.0) k/uL Eosinophils # Basophils # Nucleated RBCs (0-0) /100 WBC Polychromasia Sodium (137-145) mmol/L Potassium (3.5-5.1) mmol/L Chloride (98-107) mmol/L Carbon Dioxide (22-30) mmol/L Anion Gap mmol/L BUN (9-20) mg/dL Creatinine (0.66-1.25) mg/dL Est GFR (CKD-EPI)AfAm (>60 ml/min/1.73 sqM) Est GFR (CKD-EPI)NonAf (>60 ml/min/1.73 sqM) Glucose (74-99) mg/dL Plasma Lactic Acid Ottoniel 1.5 (0.7-2.0) mmol/L Calcium (8.4-10.2) mg/dL Magnesium (1.6-2.3) mg/dL Total Bilirubin (0.2-1.3) mg/dL AST (17-59) U/L ALT (21-72) U/L Alkaline Phosphatase (38-126) U/L Total Creatine Kinase 702 H (55-170) U/L CK-MB (CK-2) 6.3 H* (0.0-2.4) ng/mL CK-MB (CK-2) Rel Index 0.9 Troponin I Cancelled Total Protein (6.3-8.2) g/dL Albumin (3.5-5.0) g/dL Urine Color Urine Appearance (Clear) Urine pH (5.0-8.0) Ur Specific Whipple (1.001-1.035) Urine Protein (Negative) Urine Glucose (UA) (Negative) Urine Ketones (Negative) Urine Blood (Negative) Urine Nitrite (Negative) Urine Bilirubin (Negative) Urine Urobilinogen (<2.0) mg/dL Ur Leukocyte Esterase (Negative) Urine RBC (0-5) /hpf Urine WBC (0-5) /hpf Ur Squamous Epith Cells (0-4) /hpf Urine Bacteria (None) /hpf Urine Mucus (None) /hpf - Radiology Data Radiology results: report reviewed (Computed tomography scan of the brain without acute abnormality), image reviewed (Chest x-ray reveals no acute airspace disease) Disposition Clinical Impression: Leg weakness Disposition: ADMITTED IP TO THIS [facility] Referrals: None,Stated [REFERRING] - 1-2 days Decision Time: 15:13
[2017-12-25 12:10] LABS: Appearance,Urine Clear (Clear); Bacteria,Urine Rare /hpf; Bilirubin,Urine Negative (Negative); Blood,Urine Small (Negative); Color,Urine Yellow; Glucose,Urine (UA) Negative (Negative); Ketones,Urine Negative (Negative); Leukocyte Esterase,Urine Negative (Negative); Mucus,Urine Few /hpf; Nitrite,Urine Negative (Negative); Protein,Urine 1+ (Negative); RBC,Urine 7 /hpf (0-5); Squamous Epithelial Cell,Urine <1 /hpf (0-4); WBC,Urine 1 /hpf (0-5)
[2017-12-25 12:59] LABS: HCT 42.9 % (39.0-53.0); HGB 13.9 gm/dL (13.0-17.5); MCH 31.3 pg (25.0-35.0); MCHC 32.3 g/dL (31.0-37.0); MCV 96.9 fL (80.0-100.0); Mean Platelet Volume 8.5; Platelet Count 91 k/uL (150-450); RBC 4.43 m/uL (4.30-5.90); RDW 14.9 % (11.5-15.5)
[2017-12-25 13:01] LABS: WBC 26.9 k/uL (3.8-10.6)
[2017-12-25 13:21] LABS: Band Neutrophils % 1 %; Lymphocytes # (M) 2.69 k/uL (1.0-4.8); Monocytes # (M) 2.15 k/uL (0-1.0); Neutrophils % (M) 81 %; Nucleated Red Blood Cells 0 /100 WBC (0-0); Polychromasia Present; Total Cells Counted 100
--- NOTE | 2017-12-25 13:26 | XR ---
EXAMINATION TYPE: XR chest 2V DATE OF EXAM: 12/25/2017 COMPARISON: NONE HISTORY: Weakness, syncope TECHNIQUE: Frontal and lateral views of the chest are obtained. FINDINGS: Patient is rotated and post median sternotomy. Heart is enlarged. There is no evident pneu mothorax or sizable effusion. No definite airspace disease. Aorta is dense. There are overlying cardi ac leads. IMPRESSION: Cardiomegaly. Expiratory rotated exam. Follow-up as indicated.
[2017-12-25 13:36] LABS: Albumin 4.2 g/dL (3.5-5.0); Calcium 9.6 mg/dL (8.4-10.2); Total Bilirubin 1.1 mg/dL (0.2-1.3); Total Protein 6.6 g/dL (6.3-8.2)
[2017-12-25 13:38] LABS: Potassium 4.2 mmol/L (3.5-5.1)
[2017-12-25 13:50] LABS: Magnesium 2.1 mg/dL (1.6-2.3)
[2017-12-25 13:59] LABS: Creatine Kinase MB 6.3 ng/mL (0.0-2.4)
--- NOTE | 2017-12-25 14:34 | CT ---
EXAMINATION TYPE: CT brain wo con DATE OF EXAM: 12/25/2017 COMPARISON: Prior CT brain 05/25/2017 HISTORY: Fall today per patient family, weakness CT DLP: 1153 mGycm Automated exposure control for dose reduction was used. Helical acquisition through the brain. FINDINGS: No interval change. Periventricular white matter shows low attenuation as on previous exam. Lacunar i nfarcts present within the left thalamus and basal ganglia. Cortical atrophy is noted. There is no he morrhage or hydrocephalus. Calvarium is intact. Paranasal sinuses are clear. IMPRESSION: NO ACUTE ABNORMALITIES EVIDENT.
[2017-12-25 15:33] LABS: INR 1.1 (<1.2); Partial Thromboplastin Time 25.7 sec (22.0-30.0)
[2017-12-25] MEDS: SODIUM CHLORIDE 0.9% 1,000 ML IV SCH (17:06)
[2017-12-25] MEDS: DONEPEZIL 10 MG TAB PO SCH (20:59)
[2017-12-25] MEDS: MEMANTINE 5 MG TAB PO SCH (20:59)
[2017-12-25] MEDS ORDERED: AMITRIPTYLINE HCL 10 MG TAB PO SCH (21:00)
--- NOTE | 2017-12-25 22:38 | P.HPIM ---
History of Present Illness H&P Date: 12/25/17 Chief Complaint: Generalized weakness and fall Patient is a 87-year-old male with a known history of coronary artery disease, CABG 2 was on, hypertension and neutropenia currently on Neupogen shots every 2 weeks and also dementia and Parkinson's disease was brought to the hospital by his family with complaints of generalized weakness. Apparently patient could not climb up states yesterday and leaned onto the floor. No change in mental status from the baseline. Patient had difficulty walking and unable to feed by himself. Patient has been having cough for the past 2 days. Does not have any fever or chills. Patient felt clammy as per family. Patient was brought to the hospital for the evaluation by his family. Patient does not have any focal weakness. Patient does complain of pain with touching everywhere. No fever no chills noted. Family says that they could not able to take care of him at home. CT head showed no acute intracranial abnormality EKG showed sinus rhythm Chest x-ray showed cardiomegaly and no definitive air space disease. 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, low white counts, Parkinson's Disease History of Any Multi-Drug Resistant Organisms: None Reported Past Surgical History: Coronary Bypass/CABG Additional Past Surgical History / Comment(s): CABG x2, hernia repair surgery Past Anesthesia/Blood Transfusion Reactions: No Reported Reaction Past Psychological History: No Psychological Hx Reported Smoking Status: Former smoker Past Alcohol Use History: None Reported Past Drug Use History: None Reported - Past Family History Mother Additional Family Medical History / Comment(s): parkinson Father Family Medical History: Coronary Artery Disease (CAD) Medications and Allergies Home Medications Medication Instructions Recorded Confirmed Type Aspirin EC [Ecotrin Low Dose] 81 mg PO DAILY 01/28/17 12/25/17 History Pravastatin Sodium [Pravachol] 40 mg PO DAILY 01/28/17 12/25/17 History Tamsulosin [Flomax] 0.4 mg PO DAILY 01/28/17 12/25/17 History amLODIPine [Norvasc] 5 mg PO DAILY 01/28/17 12/25/17 History Coconut Oil 1 tab PO DAILY 05/19/17 12/25/17 History Donepezil 23mg 23 mg PO HS 05/19/17 12/25/17 History Memantine [Namenda] 5 mg PO BID 12/25/17 12/25/17 History Neupogen (Unk. Dose) 480 mg IJ TUFR 12/25/17 12/25/17 History [place]-3/Dha/Epa/Fish Oil [Fish Oil 1 cap PO DAILY 12/25/17 12/25/17 History 500 mg Softgel] Allergies Allergy/AdvReac Type Severity Reaction Status Date / Time pregabalin [From Lyrica] Allergy Unknown Verified 12/25/17 15:44 Physical Exam Vitals: Vital Signs Temp Pulse Pulse Resp BP BP Pulse Ox 12/25/17 16:15 97.5 F L 67 16 146/71 98 12/25/17 15:37 98.4 F 79 16 149/66 97 12/25/17 14:47 69 18 141/76 98 12/25/17 13:35 72 18 171/68 97 12/25/17 10:45 98.7 F 59 L 20 160/70 95 Intake and Output 12/25/17 12/25/17 12/25/17 06:59 14:59 22:59 Output Total 200 Balance -200 Output: Urine 200 Straight 200 Other: Weight 72.575 kg PHYSICAL EXAMINATION: Patient is lying in the bed comfortably, no acute distress, awake alert and could not provide any history HEENT: Normocephalic. Neck is supple. Pupils reactive. Nostrils clear. Oral cavity is moist. Ears reveal no drainage. Neck reveals no JVD, carotid bruits, or thyromegaly. CHEST EXAMINATION: Trachea is central. Symmetrical expansion. Bibasilar diminished air entry. Lung christiansen clear to auscultation and percussion. CARDIAC: Normal S1, S2 with no gallops. No murmurs ABDOMEN: Soft. Bowel sounds normal. No organomegaly. No abdominal bruits. Extremities: reveal no edema. No clubbing or cyanosis Neurologically awake, alert, oriented x1 with well-coordinated movements. No focal deficits noted Skin: No rash or skin lesions. Psychiatric: Cooperative. Could not be assessed completely Musculoskeletal: No joint swelling or deformity. Normal range of motion. Results CBC & Chem 7: 12/25/17 12:50 12/25/17 12:50 Labs: Abnormal Lab Results - Last 24 Hours (Table) 12/25/17 12/25/17 12/25/17 Range/Units 11:58 12:50 12:50 WBC 26.9 H* (3.8-10.6) k/uL Plt Count 91 L (150-450) k/uL Neutrophils # (Manual) 22.00 H (1.3-7.7) k/uL Monocytes # (Manual) 2.15 H (0-1.0) k/uL AST 70 H (17-59) U/L Alkaline Phosphatase 149 H (38-126) U/L Total Creatine Kinase (55-170) U/L CK-MB (CK-2) (0.0-2.4) ng/mL Troponin I (0.000-0.034) ng/mL Urine Protein 1+ H (Negative) Urine Blood Small H (Negative) Urine RBC 7 H (0-5) /hpf Urine Bacteria Rare H (None) /hpf Urine Mucus Few H (None) /hpf 12/25/17 12/25/17 Range/Units 12:50 15:17 WBC (3.8-10.6) k/uL Plt Count (150-450) k/uL Neutrophils # (Manual) (1.3-7.7) k/uL Monocytes # (Manual) (0-1.0) k/uL AST (17-59) U/L Alkaline Phosphatase (38-126) U/L Total Creatine Kinase 702 H (55-170) U/L CK-MB (CK-2) 6.3 H* (0.0-2.4) ng/mL Troponin I 0.047 H* (0.000-0.034) ng/mL Urine Protein (Negative) Urine Blood (Negative) Urine RBC (0-5) /hpf Urine Bacteria (None) /hpf Urine Mucus (None) /hpf Thrombosis Risk Factor Assmnt - DVT/VTE Prophylaxis DVT/VTE Prophylaxis: Pharmacologic Prophylaxis ordered - Choose All That Apply Any of the Below Risk Factors Present?: No Each Risk Factor Represents 3 Points: Age 75 years or older Thrombosis Risk Factor Assessment Total Risk Factor Score: 3 Thrombosis Risk Factor Assessment Level: Moderate Risk Assessment and Plan Assessment: Generalized weakness and leaned onto floor. CT head negative for acute abnormality. Elevated CPK with mild rhabdomyolysis Elevated troponin with possible non-ST elevated [place] History of coronary artery disease and CABG Dementia and Parkinson's disease Hypertension uncontrolled [place] hyperlipidemia Chronic low white count on Neupogen injections every 2 weeks Leukocytosis on 26.9. With no signs of infection Previous history of smoking DVT prophylaxis Plan: Patient will be continued on telemetry monitoring and serial troponins. Continue with hydration and follow-up. Continue with aspirin and will hold statins. Cardiology and neurology was consulted. Follow-up WBC count. No signs of infection noted. UA and chest x-ray are negative for infection. Discussed with his family at bedside in detail. PT OT will be consulted. Patient may need to be transferred to rehab. Time with Patient: Greater than 30
[2017-12-26] MEDS: HEPARIN SODIUM,PORCINE 5,000 UNIT/ML 1 ML VIAL SQ SCH ×4 (02:38→23:57)
[2017-12-26 04:30] LABS: Calcium 9.1 mg/dL (8.4-10.2); Potassium 4.2 mmol/L (3.5-5.1)
[2017-12-26 04:32] LABS: Basophils % (A) 0 %; Eosinophils % (A) 0 %; HCT 40.6 % (39.0-53.0); Lymphocytes # (A) 1.2 k/uL (1.0-4.8); Lymphocytes % (A) 10 %; MCH 31.2 pg (25.0-35.0); MCHC 31.9 g/dL (31.0-37.0); MCV 97.8 fL (80.0-100.0); Mean Platelet Volume 8.5; Monocytes # (A) 1.5 k/uL (0-1.0); Monocytes % (A) 13 %; Neutrophils # (A) 8.5 k/uL (1.3-7.7); Neutrophils % (A) 74 %; RBC 4.15 m/uL (4.30-5.90); RDW 14.6 % (11.5-15.5); WBC 11.5 k/uL (3.8-10.6)
[2017-12-26 05:39] LABS: Platelet Count 91 k/uL (150-450)
[2017-12-26] MEDS: SODIUM CHLORIDE 0.9% 1,000 ML IV SCH ×3 (06:30→20:47)
[2017-12-26] MEDS: ASPIRIN 81 MG PO SCH (08:09)
[2017-12-26] MEDS: MEMANTINE 5 MG TAB PO SCH ×2 (08:09→20:46)
[2017-12-26] MEDS: amLODIPine 5 MG TAB PO SCH (08:09)
[2017-12-26] MEDS: TAMSULOSIN 0.4 MG CAP.ER.24H PO SCH (08:09)
[2017-12-26] MEDS ORDERED: COCONUT OIL PO SCH (09:00)
[2017-12-26] MEDS ORDERED: NON-FORMULARY DRUG (Omega-3/Dha/Epa/Fish Oil [Fish Oil 500 Mg Softgel] 1 CAP) PO SCH (09:00)
--- NOTE | 2017-12-26 15:23 | P.CNNES ---
History of Present Illness Consult date: 12/26/17 Requesting physician: John Ayala Reason for Consult: Leg weakness History of Present Illness: Patient is an 87-year-old male who is being evaluated by the neurology service on 12/26/2017 per the request of Dr. Ayala for leg weakness. Patient has history of dementia, coronary artery disease, hypertension, Parkinson's disease, and neutropenia on Neupogen. Patient is a poor historian and information is gathered from staff and chart. Apparently patient was ambulatory in the home setting with the help of his . He was trying to climb the stairs as he normally does and was unable to do so yesterday. denies any change in mental status. No obvious lateralizing weakness is reported. Patient was [facility] for evaluation. Family states they cannot take care of him in his current condition. They would like placement or inpatient rehab. CT of the brain was done which showed no acute intracranial abnormality. EKG showed sinus rhythm. Vital signs at admission showed 97.5, pulse 67, respirations 16, blood pressure 146/71, and oxygen was 98% on room air. Labs on admission showed elevated WBCs of 26.9, platelets 91, neutrophils 22, elevated CK-MB at 6.3. Lipid panel was within normal limits except for low HDL of 15. At the time of my evaluation, patient' s resting comfortably in bed and appears to be in no acute distress. Review of Systems REVIEW OF SYSTEMS: Otherwise unremarkable and noncontributory. 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, low white counts, Parkinson's Disease History of Any Multi-Drug Resistant Organisms: None Reported Past Surgical History: Coronary Bypass/CABG Additional Past Surgical History / Comment(s): CABG x2, hernia repair surgery Past Anesthesia/Blood Transfusion Reactions: No Reported Reaction Past Psychological History: No Psychological Hx Reported Smoking Status: Former smoker Past Alcohol Use History: None Reported Past Drug Use History: None Reported - Past Family History Mother Additional Family Medical History / Comment(s): parkinson Father Family Medical History: Coronary Artery Disease (CAD) Medications and Allergies Home Medications Medication Instructions Recorded Confirmed Type Aspirin EC [Ecotrin Low Dose] 81 mg PO DAILY 06/22/17 05/19/18 History Pravastatin Sodium [Pravachol] 40 mg PO DAILY 01/28/17 12/25/17 History Tamsulosin [Flomax] 0.4 mg PO DAILY 01/28/17 12/25/17 History amLODIPine [Norvasc] 5 mg PO DAILY 01/28/17 12/25/17 History Coconut Oil 1 tab PO DAILY 05/19/17 12/25/17 History Donepezil 23mg 23 mg PO HS 05/19/17 12/25/17 History Memantine [Namenda] 5 mg PO BID 12/25/17 12/25/17 History Neupogen (Unk. Dose) 480 mg IJ TUFR 12/25/17 12/25/17 History [place]-3/Dha/Epa/Fish Oil [Fish Oil 1 cap PO DAILY 12/25/17 12/25/17 History 500 mg Softgel] Allergies Allergy/AdvReac Type Severity Reaction Status Date / Time pregabalin [From Lyrica] Allergy Unknown Verified 12/25/17 15:44 Physical Examination - Vital Signs Vital Signs: Vital Signs Temp Pulse Pulse Resp BP BP Pulse Ox 12/26/17 05:55 97.0 F L 71 16 149/71 95 12/25/17 23:55 97.9 F 69 16 139/71 96 12/25/17 16:15 97.5 F L 67 16 146/71 98 12/25/17 15:37 98.4 F 79 16 149/66 97 Intake and Output 12/26/17 12/26/17 12/26/17 06:59 14:59 22:59 Other: Voiding Method Diaper Diaper # Voids 2 2 # Bowel Movements 3 2 PHYSICAL EXAM: GENERAL APPEARANCE: Patient is a well-developed, male who appears to be in no acute distress. HEENT: Normocephalic, atraumatic, no facial asymmetry is seen. Neck is supple with no masses felt. CARDIOVASCULAR: Regular rate and rhythm. ABDOMEN: Nontender, nondistended. EXTREMITIES: Show no edema or clubbing. NEUROLOGICAL EXAM: Patient is awake, alert, and oriented to self only. Speech and language are normal. Strength is 5/5 in bilateral upper extremities and 5-/ 5 in bilateral lower extremities. Sensory exam is normal to light touch in all 4 extremities. No obvious facial asymmetry seen on cranial nerve testing. No tremors or seizure-like activity is noted. Results - Laboratory Findings CBC and BMP: 12/26/17 03:38 12/26/17 03:38 Abnormal Lab Findings: Abnormal Labs 12/25/17 12/25/17 12/25/17 11:58 12:50 12:50 WBC 26.9 H* RBC Plt Count 91 L Neutrophils # Neutrophils # (Manual) 22.00 H Monocytes # Monocytes # (Manual) 2.15 H AST 70 H Alkaline Phosphatase 149 H Total Creatine Kinase CK-MB (CK-2) Troponin I HDL Cholesterol Urine Protein 1+ H Urine Blood Small H Urine RBC 7 H Urine Bacteria Rare H Urine Mucus Few H 12/25/17 12/25/17 12/26/17 12:50 15:17 03:38 WBC RBC Plt Count Neutrophils # Neutrophils # (Manual) Monocytes # Monocytes # (Manual) AST Alkaline Phosphatase Total Creatine Kinase 702 H CK-MB (CK-2) 6.3 H* Troponin I 0.047 H* HDL Cholesterol 15 L Urine Protein Urine Blood Urine RBC Urine Bacteria Urine Mucus 12/26/17 03:38 WBC 11.5 H RBC 4.15 L Plt Count 91 L Neutrophils # 8.5 H Neutrophils # (Manual) Monocytes # 1.5 H Monocytes # (Manual) AST Alkaline Phosphatase Total Creatine Kinase CK-MB (CK-2) Troponin I HDL Cholesterol Urine Protein Urine Blood Urine RBC Urine Bacteria Urine Mucus Assessment and Plan Plan: Impression: 1. Leg weakness 2. Parkinson's disease 3. Dementia 4. CAD 5. Leukocytosis 6. Elevated CPK/rhabdomyolysis 7. Elevated troponin 8. Hypertension Recommendation: Patient does have history of Parkinson's disease but is not currently on any Parkinson medication. It is not clear why this is. Patient has good lower extremity strength of 5-/5 but cannot ambulate very well. This is most likely due to bradykinesia affects of his Parkinson's. No obvious tremors are noted. I will start him on low-dose Sinemet 10/100 mg by mouth 3 times a day. I recommend PT OT to evaluate and treat. Further nerve conduction studies can be performed as an outpatient. As mentioned above, CT of the brain was negative for any acute abnormality. Continue current medical management. Continue workup for leukocytosis. Patient will likely need inpatient rehab at discharge. I will continue to follow with you. Further recommendations to follow. Thank you for allowing me to participate in the care of your patient. Feel free to call with any questions or concerns. I performed an examination of the patient and discussed the management with the DNA ANALYST. I have reviewed the DNA ANALYST notes and agree with the findings and plan of care.
--- NOTE | 2017-12-26 15:45 | P.CRDCN ---
History of Present Illness History of present illness: Mr. Henson is a pleasnat 87-year-old male past medical history significant for coronary artery disease with bypass grafting, dementia, dyslipidemia, hypertension, prostate disorder, Parkinson's disease and gastric esophageal reflux disease. He is a poor historian and all information is obtained from the chart. We've been asked to see him in consultation secondary to elevated troponin levels. He presented to the hospital with symptoms of generalized weakness. He denies any symptoms of chest pain, shortness of breath , dizziness, palpitations, nausea, vomiting or diaphoresis. On admission troponin value is 0.047, 0.031, 0.030. EKG reveals right bundle branch block pattern with underlying sinus mechanism. There are no old EKGs for comparison nor is there any old cardiac diagnostic testing or information regarding his bypass surgery. Chest x-ray is negative for an acute cardiopulmonary process. Laboratory data reviewed, CBC on admission 20 6. 9 repeat this morning 11.5, hemoglobin 13.0, platelets 91, sodium 142, potassium 4.2, magnesium 1.1, creatinine 0.9. Current cardiac medications include amlodipine 5 mg daily, pravastatin 40 mg daily and aspirin 81 mg daily. He also takes Flomax, Neupogen, donepezil and Namenda. Review of Systems Patient denies all complaints however is confused. CONSTITUTIONAL: Denies fever. Denies chills. EYES: Denies blurred vision. Denies vision changes. Denies eye pain. EARS, NOSE, MOUTH & THROAT: Denies headache. Denies sore throat. Denies ear pain. CARDIOVASCULAR: Denies chest pain. Denies shortness of breath. Denies orthopnea. Denies PND. Denies palpitations. RESPIRATORY: Denies cough. GASTROINTESTINAL: Denies abdominal pain. Denies diarrhea. Denies constipation. Denies nausea. Denies vomiting. MUSCULOSKELETAL: Denies myalgias. INTEGUMENTARY: Denies pruitis. Denies rash. NEUROLOGIC: Denies numbness. Denies tingling. Denies weakness. PSYCHIATRIC: Denies anxiety. Denies depression. ENDOCRINE: Denies fatigue. Denies weight change. Denies polydipsia. Denies polyurina. GENITOURINARY: Denies burning, hematuria or urgency with micturation. HEMATOLOGIC: Denies history of anemia. Denies bleeding. 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, low white counts, Parkinson's Disease History of Any Multi-Drug Resistant Organisms: None Reported Past Surgical History: Coronary Bypass/CABG Additional Past Surgical History / Comment(s): CABG x2, hernia repair surgery Past Anesthesia/Blood Transfusion Reactions: No Reported Reaction Past Psychological History: No Psychological Hx Reported Smoking Status: Former smoker Past Alcohol Use History: None Reported Past Drug Use History: None Reported - Past Family History Mother Additional Family Medical History / Comment(s): parkinson Father Family Medical History: Coronary Artery Disease (CAD) Medications and Allergies Home Medications Medication Instructions Recorded Confirmed Type Aspirin EC [Ecotrin Low Dose] 81 mg PO DAILY 01/28/17 12/25/17 History Pravastatin Sodium [Pravachol] 40 mg PO DAILY 01/28/17 12/25/17 History Tamsulosin [Flomax] 0.4 mg PO DAILY 01/28/17 12/25/17 History amLODIPine [Norvasc] 5 mg PO DAILY 01/28/17 12/25/17 History Coconut Oil 1 tab PO DAILY 05/19/17 12/25/17 History Donepezil 23mg 23 mg PO HS 05/19/17 12/25/17 History Memantine [Namenda] 5 mg PO BID 12/25/17 12/25/17 History Neupogen (Unk. Dose) 480 mg IJ TUFR 12/25/17 12/25/17 History [place]-3/Dha/Epa/Fish Oil [Fish Oil 1 cap PO DAILY 12/25/17 12/25/17 History 500 mg Softgel] Allergies Allergy/AdvReac Type Severity Reaction Status Date / Time pregabalin [From Lyrica] Allergy Unknown Verified 12/25/17 15:44 Physical Exam Vitals: Vital Signs Temp Pulse Pulse Resp BP BP BP 12/26/17 13:48 98.5 F 74 18 134/73 12/26/17 05:55 97.0 F L 71 16 149/71 12/25/17 23:55 97.9 F 69 16 139/71 12/25/17 16:15 97.5 F L 67 16 146/71 12/25/17 15:37 98.4 F 79 16 149/66 Pulse Ox 12/26/17 13:48 93 L 12/26/17 05:55 95 12/25/17 23:55 96 12/25/17 16:15 98 12/25/17 15:37 97 Intake and Output 12/26/17 12/26/17 12/26/17 06:59 14:59 22:59 Other: Voiding Method Diaper Diaper Diaper # Voids 2 2 # Bowel Movements 3 2 Blood pressure 134/73 heart rate 74 afebrile maintaining oxygen saturation on room air GENERAL: This is a 87-year-old occasion male in no apparent distress at the time of my examination. HEENT: Head is atraumatic, normocephalic. Pupils are equal, round. Sclerae anicteric. Conjunctivae are clear. Mucous membranes of the mouth are moist. Neck is supple. There is no jugular venous distention. No carotid bruit is heard. LUNGS: Clear to auscultation no wheezes, rales or rhonchi. No chest wall tenderness is noted on palpation or with deep breathing. HEART: Regular rate and rhythm without murmurs, rubs or gallops. S1 and S2 heard. ABDOMEN: Soft, nontender. Bowel sounds are heard. No organomegaly noted. EXTREMITIES: No evidence of peripheral edema and no calf tenderness noted. VASCULAR: Radial and dorsalis pedis pulses palpated, no evidence of clubbing. NEUROLOGIC: Patient is awake, alert and confused. Results 12/26/17 03:38 12/26/17 03:38 Cardiac Enzymes 12/25/17 12/25/17 12/26/17 Range/Units 15:17 21:12 03:38 Troponin I 0.047 H* 0.031 0.030 (0.000-0.034) ng/mL Lipids 12/26/17 Range/Units 03:38 Triglycerides 133 (<150) mg/dL Cholesterol 77 (<200) mg/dL HDL Cholesterol 15 L (40-60) mg/dL CBC 12/26/17 Range/Units 03:38 WBC 11.5 H (3.8-10.6) k/uL RBC 4.15 L (4.30-5.90) m/uL Hgb 13.0 (13.0-17.5) gm/dL Hct 40.6 (39.0-53.0) % Plt Count 91 L (150-450) k/uL Comprehensive Metabolic Panel 12/26/17 Range/Units 03:38 Sodium 142 (137-145) mmol/L Potassium 4.2 (3.5-5.1) mmol/L Chloride 104 (98-107) mmol/L Carbon Dioxide 24 (22-30) mmol/L BUN 18 (9-20) mg/dL Creatinine 0.90 (0.66-1.25) mg/dL Glucose 87 (74-99) mg/dL Calcium 9.1 (8.4-10.2) mg/dL Current Medications Generic Name Dose Route Start Last Admin Trade Name Freq PRN Reason Stop Dose Admin Amlodipine Besylate 5 mg 12/26/17 09:00 12/26/17 08:09 Norvasc PO 5 mg DAILY SAMMI Administration Aspirin 81 mg 12/26/17 09:00 12/26/17 08:09 Aspirin PO 81 mg DAILY SAMMI Administration Carbidopa/Levodopa 1 each 12/26/17 16:00 Sinemet 10-100 PO TID SAMMI Donepezil HCl 10 mg 12/25/17 21:00 12/25/17 20:59 Aricept PO 10 mg HS SAMMI Administration Filgrastim 480 mcg 12/28/17 12:00 Zarxio SQ TuFr@1200 SAMMI Heparin Sodium (Porcine) 5,000 unit 12/26/17 00:00 12/26/17 08:09 Heparin SQ 5,000 unit Q8HR SAMMI Administration Sodium Chloride 1,000 mls @ 100 mls/hr 12/25/17 15:15 12/26/17 06:30 Saline 0.9% IV 100 mls/hr .Q10H SAMMI Administration Memantine 5 mg 12/25/17 21:00 12/26/17 08:09 Namenda PO 5 mg BID SAMMI Administration Tamsulosin HCl 0.4 mg 12/26/17 09:00 12/26/17 08:09 Flomax PO 0.4 mg DAILY SAMMI Administration Intake and Output 12/26/17 12/26/17 12/26/17 06:59 14:59 22:59 Other: Voiding Method Diaper Diaper Diaper # Voids 2 2 # Bowel Movements 3 2 12/26/17 03:38 12/26/17 03:38 Assessment and Plan Assessment: ASSESSMENT 1. Generalized weakness 2. Mild troponin elevation not indicative of an acute coronary event 3. History of coronary artery disease status post bypass grafting 4. Hypertension 5. Dyslipidemia 6. Dementia 7. Parkinson's disease PLAN Check d-dimer. Obtain 2-D echocardiogram and Doppler study to assess cardiac structure and function. Continue with aspirin 81 mg daily, pravastatin 40 mg daily and amlodipine 5 mg daily. Ongoing medical management. Attempt to obtain previous cardiac records. Thank you kindly for this consultation. Nurse Practitioner note has been reviewed, I agree with a documented findings and plan of care. Patient was seen and examined.
[2017-12-26] MEDS: CARBIDOPA-LEVODOPA 10-100 MG 1 EACH TAB PO SCH ×2 (16:04→20:47)
[2017-12-26] MEDS: DONEPEZIL 10 MG TAB PO SCH (20:46)
[2017-12-26] MEDS ORDERED: PRAVASTATIN SODIUM 40 MG TAB PO SCH (21:00)
--- NOTE | 2017-12-27 00:11 | P.PN ---
Subjective Progress Note Date: 12/26/17 Principal diagnosis: Bilateral leg weakness Patient is a 87-year-old male with a known history of coronary artery disease, CABG 2 was on, hypertension and neutropenia currently on Neupogen shots every 2 weeks and also dementia and Parkinson's disease was brought to the hospital by his family with complaints of generalized weakness. Apparently patient could not climb up states yesterday and leaned onto the floor. No change in mental status from the baseline. Patient had difficulty walking and unable to feed by himself. Patient has been having cough for the past 2 days. Does not have any fever or chills. Patient felt clammy as per family. Patient was brought to the hospital for the evaluation by his family. Patient does not have any focal weakness. Patient does complain of pain with touching everywhere. No fever no chills noted. Family says that they could not able to take care of him at home. CT head showed no acute intracranial abnormality EKG showed sinus rhythm Chest x-ray showed cardiomegaly and no definitive air space disease. CPK 702 Troponin 0.047 WBC 26.9 12/26/2017 Patient is more awake and oriented today. Tolerating oral diet. Otherwise patient was started back on medications for Parkinson's disease. Patient has not been taking his medications at home currently. Which could be reason for bradykinesia, appreciate neurology recommendations.. No fever no chills. No other acute overnight issues. CT head is negative for any acute CVA. Patient denied any complaints of chest pain or shortness of breath. No nausea vomiting or abdominal pain. WBC count is normalized now. Patient was seen by cardiology. Troponin elevation is not consistent with acute PA. Complete review of systems could not be obtained from the patient. Current medications reviewed. Active Medications Generic Name Dose Route Start Last Admin Trade Name Freq PRN Reason Stop Dose Admin Amlodipine Besylate 5 mg 12/26/17 09:00 12/26/17 08:09 Norvasc PO 5 mg DAILY SAMMI Administration Aspirin 81 mg 12/26/17 09:00 12/26/17 08:09 Aspirin PO 81 mg DAILY SAMMI Administration Carbidopa/Levodopa 1 each 12/26/17 16:00 12/26/17 20:47 Sinemet 10-100 PO 1 each TID SAMMI Administration Donepezil HCl 10 mg 12/25/17 21:00 12/26/17 20:46 Aricept PO 10 mg HS SAMMI Administration Filgrastim 480 mcg 12/28/17 12:00 Zarxio SQ TuFr@1200 SAMMI Heparin Sodium (Porcine) 5,000 unit 12/26/17 00:00 12/26/17 23:57 Heparin SQ 5,000 unit Q8HR SAMMI Administration Sodium Chloride 1,000 mls @ 100 mls/hr 12/25/17 15:15 12/26/17 20:47 Saline 0.9% IV 100 mls/hr .Q10H SAMMI Administration Memantine 5 mg 12/25/17 21:00 12/26/17 20:46 Namenda PO 5 mg BID SAMMI Administration Tamsulosin HCl 0.4 mg 12/26/17 09:00 12/26/17 08:09 Flomax PO 0.4 mg DAILY SAMMI Administration Objective - Vital Signs Vital signs: Vital Signs Temp 98.5 F 12/26/17 13:48 Pulse 74 12/26/17 13:48 Resp 18 12/26/17 13:48 BP 134/73 12/26/17 13:48 Pulse Ox 93 L 12/26/17 13:48 Intake & Output 12/25/17 12/26/17 12/26/17 18:59 06:59 18:59 Output Total 200 Balance -200 Weight 72.575 kg Output: Urine 200 Straight 200 Other: Voiding Method Diaper Diaper Diaper # Voids 2 2 # Bowel Movements 3 2 - Exam PHYSICAL EXAMINATION: Patient is lying in the bed comfortably, no acute distress, awake alert . Does have underlying dementia.. HEENT: Normocephalic. Neck is supple. Pupils reactive. Nostrils clear. Oral cavity is moist. Ears reveal no drainage. Neck reveals no JVD, carotid bruits, or thyromegaly. CHEST EXAMINATION: Trachea is central. Symmetrical expansion. Lung christiansen clear to auscultation and percussion. CARDIAC: Normal S1, S2 with no gallops. No murmurs ABDOMEN: Soft. Bowel sounds normal. No organomegaly. No abdominal bruits. Extremities: reveal no edema. No clubbing or cyanosis Neurologically awake, alert and oriented 1. Able to move all his extremities. Motor and sensory intact. No focal deficits noted Skin: No rash or skin lesions. Psychiatric: Coperative. Could not be assessed completely Musculoskeletal: No joint swelling or deformity. Normal range of motion. - Labs CBC & Chem 7: 12/26/17 03:38 12/26/17 03:38 Labs: Abnormal Lab Results - Last 24 Hours (Table) 12/25/17 12/26/17 12/26/17 Range/Units 15:17 03:38 03:38 WBC 11.5 H (3.8-10.6) k/uL RBC 4.15 L (4.30-5.90) m/uL Plt Count 91 L (150-450) k/uL Neutrophils # 8.5 H (1.3-7.7) k/uL Monocytes # 1.5 H (0-1.0) k/uL Troponin I 0.047 H* (0.000-0.034) ng/mL HDL Cholesterol 15 L (40-60) mg/dL Microbiology - Last 24 Hours (Table) 12/25/17 11:58 Urine Culture - Preliminary Urine,Catheterized Assessment and Plan Assessment: Generalized weakness and leaned onto floor. Could be due to underlying Parkinson's disease/bradykinesia. Started back on Sinemet. CT head negative for acute abnormality. Elevated CPK with mild rhabdomyolysis Elevated troponin . Unlikely acute PA. History of coronary artery disease and CABG Dementia and Parkinson's disease Hypertension uncontrolled [place] hyperlipidemia Chronic low white count on Neupogen injections every 2 weeks Leukocytosis on 26.9. With no signs of infection Previous history of smoking DVT prophylaxis Plan: Patient will be continued on telemetry monitoring and serial troponins. Continue with hydration and follow-up. Continue with aspirin and will hold statins. Cardiology and neurology is following. Started back on Sinemet which he has not been taking at home.. Follow-up WBC count is normalized. No signs of infection noted. UA and chest x-ray are negative for infection. Discussed with his family at bedside in detail. PT OT .. Patient may need to be transferred to rehab. Time with Patient: Greater than 30
[2017-12-27] MEDS: amLODIPine 5 MG TAB PO SCH (09:28)
[2017-12-27] MEDS: ASPIRIN 81 MG PO SCH (09:29)
[2017-12-27] MEDS: HEPARIN SODIUM,PORCINE 5,000 UNIT/ML 1 ML VIAL SQ SCH ×2 (09:29→17:19)
[2017-12-27] MEDS: CARBIDOPA-LEVODOPA 10-100 MG 1 EACH TAB PO SCH ×3 (09:29→20:04)
[2017-12-27] MEDS: TAMSULOSIN 0.4 MG CAP.ER.24H PO SCH (09:29)
[2017-12-27] MEDS: SODIUM CHLORIDE 0.9% 1,000 ML IV SCH ×2 (09:30→17:20)
[2017-12-27 09:43] LABS: HCT 38.2 % (39.0-53.0); HGB 12.5 gm/dL (13.0-17.5); MCH 31.9 pg (25.0-35.0); MCHC 32.8 g/dL (31.0-37.0); MCV 97.2 fL (80.0-100.0); Mean Platelet Volume 8.9; Platelet Count 98 k/uL (150-450); RBC 3.93 m/uL (4.30-5.90); RDW 14.7 % (11.5-15.5); WBC 5.7 k/uL (3.8-10.6)
[2017-12-27] MEDS: MEMANTINE 5 MG TAB PO SCH ×2 (09:48→20:04)
[2017-12-27 10:09] LABS: Anion Gap 13 mmol/L; Blood Urea Nitrogen 15 mg/dL (9-20); Calcium 8.7 mg/dL (8.4-10.2); Carbon Dioxide 24 mmol/L (22-30); Chloride 104 mmol/L (98-107); Glucose 104 mg/dL (74-99); Potassium 3.8 mmol/L (3.5-5.1); Sodium 141 mmol/L (137-145)
[2017-12-27 10:49] LABS: Metamyelocytes # (M) 0.06 k/uL (0); Metamyelocytes % 1 %; Monocytes # (M) 0.57 k/uL (0-1.0); Nucleated Red Blood Cells 0 /100 WBC (0-0)
[2017-12-27 10:51] LABS: Anisocytosis (M) Present; Lymphocytes # (M) 0.91 k/uL (1.0-4.8); Neutrophils # (M) 4.22 k/uL (1.3-7.7); Neutrophils % (M) 74 %; Poikilocytosis (M) Present; Total Cells Counted 200
[2017-12-27 11:34] VITALS: BMI 21.7
--- NOTE | 2017-12-27 13:05 | ECHOF ---
Referral Reason:elev trop MEASUREMENTS -------- HEIGHT: 182.9 cm WEIGHT: 72.6 kg BP: 142/66 RVIDd: 3.3 cm (< 3.3) IVSd: 1.3 cm (0.6 - 1.1) LVIDd: 5.0 cm (3.9 - 5.3) LVPWd: 1.3 cm (0.6 - 1.1) IVSs: 1.9 cm LVIDs: 3.6 cm LVPWs: 2.4 cm LA Diam: 3.7 cm (2.7 - 3.8) LAESV Index (A-L): 26.95 ml/m Ao Diam: 4.2 cm (2.0 - 3.7) AV Cusp: 2.2 cm (1.5 - 2.6) MV EXCURSION: 17.570 mm (> 18.000) MV EF SLOPE: 44 mm/s (70 - 150) EPSS: 1.0 cm MV E Ananth: 0.62 m/s MV DecT: 384 ms MV A Ananth: 0.85 m/s MV E/A Ratio: 0.72 RAP: 5.00 mmHg RVSP: 29.47 mmHg FINDINGS -------- This was a technically adequate study. The left ventricular size is normal. There is mild concentric left ventricular hypertrophy. Overa ll left ventricular systolic function is normal with, an EF between 55 - 60 %. The right ventricle is mildly enlarged. Normal LA size by volume 22+/-6 ml/m2. The right atrium is normal in size. There is mild aortic valve sclerosis. The mitral valve leaflets are mildly thickened. Mild mitral annular calcification present. Trace tricuspid regurgitation present. Trace/mild (physiologic) pulmonic regurgitation. 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 IVC Not well visulized. There is no pericardial effusion. CONCLUSIONS -------- 1. This was a technically adequate study. 2. The left ventricular size is normal. 3. There is mild concentric left ventricular hypertrophy. 4. Overall left ventricular systolic function is normal with, an EF between 55 - 60 %. 5. The right ventricle is mildly enlarged. 6. Normal LA size by volume 22+/-6 ml/m2. 7. The right atrium is normal in size. 8. There is mild aortic valve sclerosis. 9. The mitral valve leaflets are mildly thickened. 10. Mild mitral annular calcification present. 11. Trace tricuspid regurgitation present. 12. Trace/mild (physiologic) pulmonic regurgitation. 13. 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 14. IVC Not well visulized. 15. There is no pericardial effusion. [employer]QUIPMENT OPERATOR: Ruchi Ochoa RDCS
--- NOTE | 2017-12-27 17:50 | P.PN ---
Subjective Progress Note Date: 12/27/17 Patient is an 87-year-old male who is being followed by the neurology service for lower extremity weakness. Patient has history of coronary artery disease with history of CABG. Patient has history of dementia and Parkinson's disease. Family brought patient to [facility] for increasing weakness. It is not clear why patient does not have Parkinson's medication listed on home meds. Patient is a poor historian in much of the information was gleaned from the staff in the chart. It appears patient was not taking medication at home. Patient's lower extremities became weaker was likely due to bradykinesia from Parkinson's. Lower extremity strength is 5-/5 in bilateral lower extremities. At the time of my evaluation, patient is resting comfortably in bed and appears to be in no acute distress. Objective - Vital Signs Vital signs: Vital Signs Temp 98.3 F 12/27/17 14:45 Pulse 72 12/27/17 14:45 Resp 16 12/27/17 15:50 BP 112/65 12/27/17 14:45 Pulse Ox 93 L 12/27/17 14:45 Intake & Output 12/26/17 12/27/17 12/27/17 18:59 06:59 18:59 Weight 72.575 kg Other: Voiding Method Diaper Diaper Diaper # Voids 2 2 3 # Bowel Movements 1 1 - Exam PHYSICAL EXAM: GENERAL APPEARANCE: Patient is a well-developed, male who appears to be in no acute distress. HEENT: Normocephalic, atraumatic, no facial asymmetry is seen. Neck is supple with no masses felt. CARDIOVASCULAR: Regular rate and rhythm. ABDOMEN: Nontender, nondistended. EXTREMITIES: Show no edema or clubbing. NEUROLOGICAL EXAM: Patient is awake, alert, and oriented to self only. Speech and language are normal. Strength is full in bilateral upper extremities. Strength is 5-/5 in bilateral lower extremities. Sensory exam is normal to light touch in all 4 extremities. No facial asymmetry seen on cranial nerve testing. No tremors or seizure-like activity noted. - Labs CBC & Chem 7: 12/27/17 08:49 12/27/17 08:49 Labs: Abnormal Lab Results - Last 24 Hours (Table) 12/27/17 12/27/17 12/27/17 Range/Units 08:49 08:49 08:49 RBC 3.93 L (4.30-5.90) m/uL Hgb 12.5 L (13.0-17.5) gm/dL Hct 38.2 L (39.0-53.0) % Plt Count 98 L (150-450) k/uL Lymphocytes # (Manual) 0.91 L (1.0-4.8) k/uL Metamyelocytes # (Man) 0.06 H (0) k/uL D-Dimer 0.80 H (<0.60) mg/L FEU Glucose 104 H (74-99) mg/dL Microbiology - Last 24 Hours (Table) 12/25/17 11:58 Urine Culture - Final Urine,Catheterized 12/25/17 15:18 Blood Culture - Preliminary Blood No Growth after 24 hours Assessment and Plan Plan: Impression: 1. Leg weakness 2. Parkinson's disease 3. Dementia 4. CAD 5. Leukocytosis 6. Elevated CPK/rhabdomyolysis 7. Elevated troponin 8. Hypertension Recommendation: Patient does have history of Parkinson's disease but is not currently on any Parkinson medication. It is not clear why this is. Patient has good lower extremity strength of 5-/5 but cannot ambulate very well. This is most likely due to bradykinesia affects of his Parkinson's. No obvious tremors are noted. Continue low-dose Sinemet 10/100 mg by mouth 3 times a day. I recommend PT OT to evaluate and treat. Further nerve conduction studies can be performed as an outpatient. As mentioned above, CT of the brain was negative for any acute abnormality. Continue current medical management. Continue workup for leukocytosis. Patient will likely need inpatient rehab at discharge. I will continue to follow with you on an as-needed basis. Feel free to call with any questions or concerns. I performed an examination of the patient and discussed the management with the WOOD FUEL PELLETIZER. I have reviewed the WOOD FUEL PELLETIZER notes and agree with the findings and plan of care.
--- NOTE | 2017-12-27 18:13 | P.PN ---
Subjective Progress Note Date: 12/27/17 Progress note being dictated for Dr. Ayala Bilateral leg weakness Interval history: Patient is a 87-year-old male with a known history of coronary artery disease, CABG 2 was on, hypertension and neutropenia currently on Neupogen shots every 2 weeks and also dementia and Parkinson's disease was brought to the hospital by his family with complaints of generalized weakness. Apparently patient could not climb up states yesterday and leaned onto the floor. No change in mental status from the baseline. Patient had difficulty walking and unable to feed by himself. Patient has been having cough for the past 2 days. Does not have any fever or chills. Patient felt clammy as per family. Patient was brought to the hospital for the evaluation by his family. Patient does not have any focal weakness. Patient does complain of pain with touching everywhere. No fever no chills noted. Family says that they could not able to take care of him at home. CT head showed no acute intracranial abnormality EKG showed sinus rhythm Chest x-ray showed cardiomegaly and no definitive air space disease. CPK 702 Troponin 0.047 WBC 26.9 12/26/2017 Patient is more awake and oriented today. Tolerating oral diet. Otherwise patient was started back on medications for Parkinson's disease. Patient has not been taking his medications at home currently. Which could be reason for bradykinesia, appreciate neurology recommendations.. No fever no chills. No other acute overnight issues. CT head is negative for any acute CVA. Patient denied any complaints of chest pain or shortness of breath. No nausea vomiting or abdominal pain. WBC count is normalized now. Patient was seen by cardiology. Troponin elevation is not consistent with acute CO. Complete review of systems could not be obtained from the patient. Current medications reviewed. Active Medications Generic Name Dose Route Start Last Admin Trade Name Freq PRN Reason Stop Dose Admin Amlodipine Besylate 5 mg 12/26/17 09:00 12/26/17 08:09 Norvasc PO 5 mg DAILY SAMMI Administration Aspirin 81 mg 12/26/17 09:00 12/26/17 08:09 Aspirin PO 81 mg DAILY SAMMI Administration Carbidopa/Levodopa 1 each 12/26/17 16:00 12/26/17 20:47 Sinemet 10-100 PO 1 each TID SAMMI Administration Donepezil HCl 10 mg 12/25/17 21:00 12/26/17 20:46 Aricept PO 10 mg HS SAMMI Administration Filgrastim 480 mcg 12/28/17 12:00 Zarxio SQ TuFr@1200 SAMMI Heparin Sodium (Porcine) 5,000 unit 12/26/17 00:00 12/26/17 23:57 Heparin SQ 5,000 unit Q8HR SAMMI Administration Sodium Chloride 1,000 mls @ 100 mls/hr 12/25/17 15:15 12/26/17 20:47 Saline 0.9% IV 100 mls/hr .Q10H SAMMI Administration Memantine 5 mg 12/25/17 21:00 12/26/17 20:46 Namenda PO 5 mg BID SAMMI Administration Tamsulosin HCl 0.4 mg 12/26/17 09:00 12/26/17 08:09 Flomax PO 0.4 mg DAILY SAMMI Administration 12/27/2017 elevated d-dimer, VQ scan ordered. 2-D echo pending. Evaluated by physical therapy with subacute rehab recommended at discharge. at bedside, discussed subacute rehab, potential long-term rehab. Objective - Vital Signs Vital signs: Vital Signs Temp 98.3 F 12/27/17 14:45 Pulse 72 12/27/17 14:45 Resp 16 12/27/17 15:50 BP 112/65 12/27/17 14:45 Pulse Ox 93 L 12/27/17 14:45 Intake & Output 12/26/17 12/27/17 12/27/17 18:59 06:59 18:59 Weight 72.575 kg Other: Voiding Method Diaper Diaper Diaper # Voids 2 2 3 # Bowel Movements 1 1 - Exam PHYSICAL EXAMINATION: Patient is lying in the bed comfortably, no acute distress, awake alert . underlying dementia.. HEENT: Normocephalic. Neck is supple. Pupils reactive. Nostrils clear. Oral cavity is moist. Ears reveal no drainage. Neck reveals no JVD, carotid bruits, or thyromegaly. CHEST EXAMINATION: Trachea is central. Symmetrical expansion. Lung christiansen clear to auscultation and percussion. CARDIAC: Normal S1, S2 with no gallops. No murmurs ABDOMEN: Soft. Bowel sounds normal. No organomegaly. No abdominal bruits. Extremities: reveal no edema. No clubbing or cyanosis Neurologically awake, alert and oriented 1. Able to move all his extremities. Motor and sensory intact. No focal deficits noted Skin: No rash or skin lesions. Psychiatric: Cooperative. Could not be assessed completely Musculoskeletal: No joint swelling or deformity. Normal range of motion. - Labs CBC & Chem 7: 12/27/17 08:49 12/27/17 08:49 Labs: Abnormal Lab Results - Last 24 Hours (Table) 12/27/17 12/27/17 12/27/17 Range/Units 08:49 08:49 08:49 RBC 3.93 L (4.30-5.90) m/uL Hgb 12.5 L (13.0-17.5) gm/dL Hct 38.2 L (39.0-53.0) % Plt Count 98 L (150-450) k/uL Lymphocytes # (Manual) 0.91 L (1.0-4.8) k/uL Metamyelocytes # (Man) 0.06 H (0) k/uL D-Dimer 0.80 H (<0.60) mg/L FEU Glucose 104 H (74-99) mg/dL Microbiology - Last 24 Hours (Table) 12/25/17 15:18 Blood Culture - Preliminary Blood No Growth after 48 hours 12/25/17 11:58 Urine Culture - Final Urine,Catheterized Assessment and Plan Assessment: Generalized weakness and leaned onto floor. Could be due to underlying Parkinson's disease/bradykinesia. Sinemet resumed. CT head negative for acute abnormality. Elevated CPK with mild rhabdomyolysis Elevated troponin . Unlikely acute CO. History of coronary artery disease and CABG Dementia and Parkinson's disease Hypertension uncontrolled [place] hyperlipidemia Chronic low white count on Neupogen injections every 2 weeks Leukocytosis on 26.9. With no signs of infection Previous history of smoking Elevated d-dimer, multifactorial, ruling out PE Plan: Continue current medication regime ,monitoring and symptomatic treatment. Maintain gentle IV fluid hydration. Strict aspiration precautions. Follow- up chest x-ray pending. Elevated d-dimer ,VQ scan ordered, ruling out PE. Discharge planning in progress for subacute rehab. Patient on Neupogen, for myelodysplastic syndrome-unable to be stopped at this time as per Oncology; high cost for ECFs, may possibly lead to difficult placement. Follow closely with social work. The impression and plan of care has been dictated as directed. : I performed a history and examination of this patient, discussed the same with the dictator. I agree with the dictator's note ,documented as a scribe. Any additional findings or plans will be noted.
--- NOTE | 2017-12-27 19:41 | NM ---
EXAMINATION TYPE: NM pul perfusion DATE OF EXAM: 12/27/2017 COMPARISON: NONE HISTORY: Confusion. Short of breath. Elevated d-dimer. Following administration of 5.2 mCi Tc 99m MAA. Images obtained post injection. FINDINGS: Perfusion images show fairly uniform activity in both lungs. I see no segmental type defect. The brando abdulaziz of exam is unremarkable. IMPRESSION: Normal perfusion lung scan. There is very low probability of pulmonary embolism.
--- NOTE | 2017-12-27 19:49 | XR ---
EXAMINATION TYPE: XR chest 1V portable DATE OF EXAM: 12/27/2017 COMPARISON: 12/25/2017 HISTORY: Follow-up infiltrates. Syncope. Weakness. TECHNIQUE: Single frontal view of the chest is obtained. FINDINGS: There is no heart failure nor confluent pneumonic infiltrate. Thoracic aorta is atheromato us. Costophrenic angles are clear. There are sternal wires. IMPRESSION: Minimal fibrotic changes at the left lung base. There is improved aeration of the lungs compared to last exam. No heart failure.
[2017-12-27] MEDS: DONEPEZIL 10 MG TAB PO SCH (20:03)
[2017-12-27] MEDS: BACITRACIN 500 UNIT/GM OINT 28.4 GM TUBE TOPICAL SCH (20:04)
[2017-12-28] MEDS: HEPARIN SODIUM,PORCINE 5,000 UNIT/ML 1 ML VIAL SQ SCH ×4 (03:07→23:07)
[2017-12-28] MEDS: SODIUM CHLORIDE 0.9% 1,000 ML IV SCH ×3 (03:07→20:06)
[2017-12-28] MEDS: MEMANTINE 5 MG TAB PO SCH ×2 (08:20→19:47)
[2017-12-28] MEDS: ASPIRIN 81 MG PO SCH (08:20)
[2017-12-28] MEDS: amLODIPine 5 MG TAB PO SCH (08:20)
[2017-12-28] MEDS: TAMSULOSIN 0.4 MG CAP.ER.24H PO SCH (08:20)
[2017-12-28] MEDS: BACITRACIN 500 UNIT/GM OINT 28.4 GM TUBE TOPICAL SCH ×2 (08:21→20:51)
[2017-12-28] MEDS: CARBIDOPA-LEVODOPA 10-100 MG 1 EACH TAB PO SCH ×3 (08:21→20:51)
--- NOTE | 2017-12-28 13:07 | P.DS ---
Providers Date of admission: 12/25/17 15:13 Expected date of discharge: 12/28/17 Attending physician: John Hui Consults: 12/25/17 15:13 Consult Physician Urgent Consulting Provider: Tomeka Reilly Consult Reason/Comments: leg weakness Do you want consulting provider notified?: Yes 12/25/17 22:35 Consult Physician Routine Consulting Provider: Lucas Zabala Consult Reason/Comments: Elevated troponin Do you want consulting provider notified?: Yes, Notify in am Primary care physician: Kelly James [facility] Course: Final Diagnoses: Generalized weakness and leaned onto floor. Could be due to underlying Parkinson's disease/bradykinesia. Sinemet resumed. CT head negative for acute abnormality. Elevated CPK with mild rhabdomyolysis Elevated troponin . Unlikely acute [place]. 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 With no signs of infection Previous history of smoking Elevated d-dimer, multifactorial, PE ruled out. Dilated aortic root 4.2 cm Hospital COurse:Bilateral leg weakness Interval history: Patient is a 87-year-old male with a known history of coronary artery disease, CABG 2 was on, hypertension and neutropenia currently on Neupogen shots every 2 weeks and also dementia and Parkinson's disease was brought to the hospital by his family with complaints of generalized weakness. Apparently patient could not climb up states yesterday and leaned onto the floor. No change in mental status from the baseline. Patient had difficulty walking and unable to feed by himself. Patient has been having cough for the past 2 days. Does not have any fever or chills. Patient felt clammy as per family. Patient was brought to the hospital for the evaluation by his family. Patient does not have any focal weakness. Patient does complain of pain with touching everywhere. No fever no chills noted. Family says that they could not able to take care of him at home. CT head showed no acute intracranial abnormality EKG showed sinus rhythm Chest x-ray showed cardiomegaly and no definitive air space disease. CPK 702 Troponin 0.047 WBC 26.9 12/26/2017 Patient is more awake and oriented today. Tolerating oral diet. Otherwise patient was started back on medications for Parkinson's disease. Patient has not been taking his medications at home currently. Which could be reason for bradykinesia, appreciate neurology recommendations.. No fever no chills. No other acute overnight issues. CT head is negative for any acute CVA. Patient denied any complaints of chest pain or shortness of breath. No nausea vomiting or abdominal pain. WBC count is normalized now. Patient was seen by cardiology. Troponin elevation is not consistent with acute [place]. 12/27/2017 elevated d-dimer, VQ scan ordered. 2-D echo pending. Evaluated by physical therapy with subacute rehab recommended at discharge. at bedside, discussed subacute rehab, potential long-term rehab. 12/28/2017.VQ reported low probability of PE. Echo reporting mild concentric left ventricular hypertrophy, EF 55-60%, dilated aortic root 4.2 cm, IVC not well visualized. Patient has been cleared by all consults for discharge. Patient being discharged to subacute rehab today in a stable condition with guarded prognosis. PHYSICAL EXAMINATION: Patient is lying in the bed comfortably, no acute distress, awake alert . underlying dementia.. CHEST EXAMINATION: Trachea is central. Symmetrical expansion. Lung christiansen clear to auscultation and percussion. CARDIAC: Normal S1, S2 with no gallops. No murmurs ABDOMEN: Soft. Bowel sounds normal. No organomegaly. No abdominal bruits. Neurologically awake, alert and oriented 1. Able to move all his extremities. Motor and sensory intact. No focal deficits noted Time taken: 35 min. The impression and plan of care has been dictated as directed. : I performed a history and examination of this patient, discussed the same with the dictator. I agree with the dictator's note ,documented as a scribe. Any additional findings or plans will be noted. Patient Condition at Discharge: Stable Plan - Discharge Summary Discharge Rx Participant: No New Discharge Prescriptions: New Bacitracin Oint 1 applic TOPICAL BID applic Carbidopa-Levodopa 10-100 mg [Sinemet 10-100 mg] 1 each PO TID #90 tab Continue Aspirin EC [Ecotrin Low Dose] 81 mg PO DAILY Tamsulosin [Flomax] 0.4 mg PO DAILY amLODIPine [Norvasc] 5 mg PO DAILY Pravastatin Sodium [Pravachol] 40 mg PO DAILY Coconut Oil 1 tab PO DAILY Donepezil 23mg 23 mg PO HS [place]-3/Dha/Epa/Fish Oil [Fish Oil 500 mg Softgel] 1 cap PO DAILY Memantine [Namenda] 5 mg PO BID Filgrastim Sndz [Neupogen] 480 mcg IJ TUFR Discharge Medication List Aspirin EC [Ecotrin Low Dose] 81 mg PO DAILY 01/28/17 [History] Pravastatin Sodium [Pravachol] 40 mg PO DAILY 01/28/17 [History] Tamsulosin [Flomax] 0.4 mg PO DAILY 01/28/17 [History] amLODIPine [Norvasc] 5 mg PO DAILY 01/28/17 [History] Coconut Oil 1 tab PO DAILY 05/19/17 [History] Donepezil 23mg 23 mg PO HS 05/19/17 [History] Memantine [Namenda] 5 mg PO BID 12/25/17 [History] [place]-3/Dha/Epa/Fish Oil [Fish Oil 500 mg Softgel] 1 cap PO DAILY 12/25/17 [ History] Filgrastim Sndz [Neupogen] 480 mcg IJ TUFR 12/27/17 [History] Bacitracin Oint 1 applic TOPICAL BID applic 12/28/17 [Rx] Carbidopa-Levodopa 10-100 mg [Sinemet 10-100 mg] 1 each PO TID #90 tab 12/28/17 [Rx] Follow up Appointment(s)/Referral(s): Ghulam Mckeon DO [STAFF PHYSICIAN] - 3 Days (While at [facility]) Kelly Gong III, MD [Primary Care Provider] - 1 Week (After discharge from subacute rehab) Tomeka Reilly MD [STAFF PHYSICIAN] - 2 Weeks Activity/Diet/Wound Care/Special Instructions: ECF pending Diet: Cardiac, strict aspiration precautions Activity: As tolerated CBC, BMP in 3 days
[2017-12-28] MEDS: FILGRASTIM-SNDZ 480 MCG/0.8 ML SYRINGE SQ SCH (13:22)
--- NOTE | 2017-12-28 16:47 | P.PN ---
Subjective Progress Note Date: 12/28/17 Progress note being dictated for Dr. Hui Bilateral leg weakness Interval history: Patient is a 87-year-old male with a known history of coronary artery disease, CABG 2 was on, hypertension and neutropenia currently on Neupogen shots every 2 weeks and also dementia and Parkinson's disease was brought to the hospital by his family with complaints of generalized weakness. Apparently patient could not climb up states yesterday and leaned onto the floor. No change in mental status from the baseline. Patient had difficulty walking and unable to feed by himself. Patient has been having cough for the past 2 days. Does not have any fever or chills. Patient felt clammy as per family. Patient was brought to the hospital for the evaluation by his family. Patient does not have any focal weakness. Patient does complain of pain with touching everywhere. No fever no chills noted. Family says that they could not able to take care of him at home. CT head showed no acute intracranial abnormality EKG showed sinus rhythm Chest x-ray showed cardiomegaly and no definitive air space disease. CPK 702 Troponin 0.047 WBC 26.9 12/26/2017 Patient is more awake and oriented today. Tolerating oral diet. Otherwise patient was started back on medications for Parkinson's disease. Patient has not been taking his medications at home currently. Which could be reason for bradykinesia, appreciate neurology recommendations.. No fever no chills. No other acute overnight issues. CT head is negative for any acute CVA. Patient denied any complaints of chest pain or shortness of breath. No nausea vomiting or abdominal pain. WBC count is normalized now. Patient was seen by cardiology. Troponin elevation is not consistent with acute [place]. Complete review of systems could not be obtained from the patient. Current medications reviewed. Active Medications Generic Name Dose Route Start Last Admin Trade Name Freq PRN Reason Stop Dose Admin Amlodipine Besylate 5 mg 12/26/17 09:00 12/26/17 08:09 Norvasc PO 5 mg DAILY SAMMI Administration Aspirin 81 mg 12/26/17 09:00 12/26/17 08:09 Aspirin PO 81 mg DAILY SAMMI Administration Carbidopa/Levodopa 1 each 12/26/17 16:00 12/26/17 20:47 Sinemet 10-100 PO 1 each TID SAMMI Administration Donepezil HCl 10 mg 12/25/17 21:00 12/26/17 20:46 Aricept PO 10 mg HS SAMMI Administration Filgrastim 480 mcg 12/28/17 12:00 Zarxio SQ TuFr@1200 SAMMI Heparin Sodium (Porcine) 5,000 unit 12/26/17 00:00 12/26/17 23:57 Heparin SQ 5,000 unit Q8HR SAMMI Administration Sodium Chloride 1,000 mls @ 100 mls/hr 12/25/17 15:15 12/26/17 20:47 Saline 0.9% IV 100 mls/hr .Q10H SAMMI Administration Memantine 5 mg 12/25/17 21:00 12/26/17 20:46 Namenda PO 5 mg BID SAMMI Administration Tamsulosin HCl 0.4 mg 12/26/17 09:00 12/26/17 08:09 Flomax PO 0.4 mg DAILY SAMMI Administration 12/27/2017 elevated d-dimer, VQ scan ordered. 2-D echo pending. Evaluated by physical therapy with subacute rehab recommended at discharge. at bedside, discussed subacute rehab, potential long-term rehab. 12/28/2017 VQ reported low probability of PE. Echo reporting mild concentric left ventricular hypertrophy, EF 55-60%, dilated aortic root 4.2 cm, IVC not well visualized. No overnight events. Awaiting placement. Objective - Vital Signs Vital signs: Vital Signs Temp 99.8 F H 12/28/17 15:00 Pulse 77 12/28/17 15:00 Resp 16 12/28/17 15:11 BP 133/63 12/28/17 15:00 Pulse Ox 92 L 12/28/17 15:00 Intake & Output 12/27/17 12/28/17 12/28/17 18:59 06:59 18:59 Weight 72.575 kg Other: Voiding Method Diaper Diaper Diaper # Voids 3 2 2 # Bowel Movements 1 1 - Exam PHYSICAL EXAMINATION: Patient is lying in the bed comfortably, no acute distress, awake alert HEENT: Normocephalic. Neck is supple. Pupils reactive. Nostrils clear. Oral cavity is moist. Neck reveals no JVD, carotid bruits, or thyromegaly. CHEST EXAMINATION: Trachea is central. Symmetrical expansion. Lung christiansen clear to auscultation and percussion. CARDIAC: Normal S1, S2 with no gallops. No murmurs ABDOMEN: Soft. Bowel sounds normal. No organomegaly. No abdominal bruits. Extremities: reveal no edema. No clubbing or cyanosis Neurologically awake, alert and oriented 1. Able to move all his extremities. Motor and sensory intact. No focal deficits noted Skin: No rash or skin lesions. Psychiatric: Cooperative. Could not be assessed completely- dementia Musculoskeletal: No joint swelling or deformity. Normal range of motion. - Labs CBC & Chem 7: 12/27/17 08:49 12/27/17 08:49 Labs: Microbiology - Last 24 Hours (Table) 12/25/17 15:18 Blood Culture - Preliminary Blood No Growth after 48 hours Assessment and Plan Assessment: Generalized weakness and leaned onto floor. Could be due to underlying Parkinson's disease/bradykinesia. Sinemet resumed. CT head negative for acute abnormality. Elevated CPK with mild rhabdomyolysis Elevated troponin . Unlikely acute [place]. History of coronary artery disease and CABG Dementia and Parkinson's disease Hypertension uncontrolled [place] hyperlipidemia Chronic low white count on Neupogen injections every 2 weeks Leukocytosis on 26.9. With no signs of infection Previous history of smoking Elevated d-dimer, multifactorial, PE ruled out Plan: Continue current medication regime ,monitoring and symptomatic treatment. Maintain gentle IV fluid hydration. Strict aspiration precautions. Discharge planning in progress for subacute rehab. Social work reports difficult placement secondary to patient on Neupogen for myelodysplastic syndrome. Unable to be stopped at this time as per Oncology.Follow closely with social work. The impression and plan of care has been dictated as directed. : I performed a history and examination of this patient, discussed the same with the dictator. I agree with the dictator's note ,documented as a scribe. Any additional findings or plans will be noted.
--- NOTE | 2017-12-28 16:57 | P.CONS ---
History of Present Illness - Reason for Consult Consult date: 12/28/17 [facility] will not pay for GCSF Requesting physician: Henny Rogers - Chief Complaint weakness - History of Present Illness Mr. Real is a very pleasant patient of Dr. Asher diagnosed with MDS in [place] in , after he was found to have mild thrombocytopenia and severe neutropenia (500), pt was started and has been maintained on G-CSF 480mcg initally weekly then increased to twice a week. This has been effective in helping patient maintain an adequate white blood cell count/absolute neutrophil count and patient has tolerated well. Patient moved to [place] to be near daughter so she could help with his care after being diagnosed with mild dementia. Pt has been seen by Dr. Asher since 2014. Bone marrow was done about that time and there were no cytogenetics changes, no increased blasts so, G-CSFtreatment has endured without significant complications. Patient currently admitted to the hospital for leg weakness, states he is doing better, plan is for extended care facility rehabilitation or possible permanent residency based on his progress. We have been asked to discontinue G -CSF so patient can go to [facility]. Patient is pleasantly confused, states his nose and I hurt, denies nausea,, problems breathing hunger, pain or need to go to the bathroom. 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, low white counts, Parkinson's Disease, myelodysplastic syndrome History of Any Multi-Drug Resistant Organisms: None Reported Past Surgical History: Coronary Bypass/CABG Additional Past Surgical History / Comment(s): CABG x2, hernia repair surgery Past Anesthesia/Blood Transfusion Reactions: No Reported Reaction Past Psychological History: No Psychological Hx Reported Smoking Status: Former smoker Past Alcohol Use History: None Reported Past Drug Use History: None Reported - Past Family History Mother Additional Family Medical History / Comment(s): parkinson Father Family Medical History: Coronary Artery Disease (CAD) Medications and Allergies Home Medications Medication Instructions Recorded Confirmed Type Aspirin EC [Ecotrin Low Dose] 81 mg PO DAILY 01/28/17 12/25/17 History Pravastatin Sodium [Pravachol] 40 mg PO DAILY 01/28/17 12/25/17 History Tamsulosin [Flomax] 0.4 mg PO DAILY 01/28/17 12/25/17 History amLODIPine [Norvasc] 5 mg PO DAILY 01/28/17 12/25/17 History Coconut Oil 1 tab PO DAILY 05/19/17 12/25/17 History Donepezil 23mg 23 mg PO HS 05/19/17 12/25/17 History Memantine [Namenda] 5 mg PO BID 12/25/17 12/25/17 History [place]-3/Dha/Epa/Fish Oil [Fish Oil 1 cap PO DAILY 12/25/17 12/25/17 History 500 mg Softgel] Filgrastim Sndz [Neupogen] 480 mcg IJ TUFR 12/27/17 12/27/17 History Bacitracin Oint 1 applic TOPICAL BID applic 12/28/17 Rx Carbidopa-Levodopa 10-100 mg 1 each PO TID #90 tab 12/28/17 Rx [Sinemet 10-100 mg] Allergies Allergy/AdvReac Type Severity Reaction Status Date / Time pregabalin [From Lyrica] Allergy Unknown Verified 12/25/17 15:44 Physical Exam Vitals: Vital Signs Temp Pulse Resp BP Pulse Ox 12/28/17 15:11 16 12/28/17 15:00 99.8 F H 77 17 133/63 92 L 12/28/17 06:00 99.1 F 75 17 156/95 94 L Intake and Output 12/28/17 12/28/17 12/28/17 06:59 14:59 22:59 Other: Voiding Method Diaper # Voids 2 2 # Bowel Movements 1 - Constitutional General appearance: cooperative, mild distress, thin - EENT Eyes: anicteric sclerae ENT: hearing grossly normal - Neck Neck: no lymphadenopathy - Respiratory Respiratory: bilateral: CTA - Cardiovascular Heart sounds: normal: S1, S2 leg Peripheral Edema: bilateral: Trace - Gastrointestinal General gastrointestinal: normal bowel sounds, soft - Integumentary Integumentary: decreased turgor - Musculoskeletal Musculoskeletal: generalized weakness - Psychiatric patient alert, answers questions about self, oriented to self, place, off on the time, some of his situation Results CBC & Chem 7: 12/27/17 08:49 12/27/17 08:49 Labs: Microbiology - Last 24 Hours (Table) 12/25/17 15:18 Blood Culture - Preliminary Blood No Growth after 48 hours Assessment and Plan (1) Myelodysplastic syndrome Narrative/Plan: Patient has been treated by Dr. Asher is 2014. Patient has had no treatment other than G-CSF being administered twice a week and he has been stable on this treatment. Case has been discussed with Banking Specialist and Band Top Maker. We are trying to find alternative growth factor to prescribe to patient as I do not recommend discontinuation. I will discuss the case with Dr. Asher and report his recommendations. Current Visit: Yes Status: Chronic Priority: Medium Code(s): D46.9 - MYELODYSPLASTIC SYNDROME, UNSPECIFIED SNOMED Code(s): 176861105
[2017-12-28] MEDS: DONEPEZIL 10 MG TAB PO SCH (19:46)
[2017-12-29] MEDS: ASPIRIN 81 MG PO SCH (08:01)
[2017-12-29] MEDS: HEPARIN SODIUM,PORCINE 5,000 UNIT/ML 1 ML VIAL SQ SCH ×3 (08:01→23:12)
[2017-12-29] MEDS: CARBIDOPA-LEVODOPA 10-100 MG 1 EACH TAB PO SCH ×3 (08:01→21:06)
[2017-12-29] MEDS: BACITRACIN 500 UNIT/GM OINT 28.4 GM TUBE TOPICAL SCH ×2 (08:01→19:59)
[2017-12-29] MEDS: amLODIPine 5 MG TAB PO SCH (08:01)
[2017-12-29] MEDS: MEMANTINE 5 MG TAB PO SCH ×2 (08:02→19:59)
[2017-12-29] MEDS: TAMSULOSIN 0.4 MG CAP.ER.24H PO SCH (08:02)
[2017-12-29] MEDS: SODIUM CHLORIDE 0.9% 1,000 ML IV SCH (08:02)
[2017-12-29 09:55] LABS: Anion Gap 15 mmol/L; Blood Urea Nitrogen 13 mg/dL (9-20); Calcium 9.2 mg/dL (8.4-10.2); Carbon Dioxide 24 mmol/L (22-30); Chloride 104 mmol/L (98-107); Glucose 100 mg/dL (74-99); Potassium 3.6 mmol/L (3.5-5.1); Sodium 143 mmol/L (137-145)
[2017-12-29 10:20] LABS: HCT 39.9 % (39.0-53.0); HGB 13.2 gm/dL (13.0-17.5); MCH 31.9 pg (25.0-35.0); MCHC 33.1 g/dL (31.0-37.0); MCV 96.4 fL (80.0-100.0); Mean Platelet Volume 8.7; Platelet Count 121 k/uL (150-450); RBC 4.14 m/uL (4.30-5.90); RDW 14.5 % (11.5-15.5)
[2017-12-29 10:24] LABS: WBC 31.2 k/uL (3.8-10.6)
[2017-12-29 10:51] LABS: Band Neutrophils % 1 %; Lymphocytes # (M) 2.81 k/uL (1.0-4.8); Neutrophils % (M) 82 %; Nucleated Red Blood Cells 0 /100 WBC (0-0); Total Cells Counted 100
[2017-12-29 10:54] LABS: Anisocytosis (M) Present
[2017-12-29 12:15] LABS: ALT 27 U/L (21-72); AST 42 U/L (17-59); Albumin 3.7 g/dL (3.5-5.0); Alkaline Phosphatase 115 U/L (38-126); Anion Gap 16 mmol/L; Basophils % (A) 0 %; Blood Urea Nitrogen 14 mg/dL (9-20); Calcium 9.1 mg/dL (8.4-10.2); Carbon Dioxide 22 mmol/L (22-30); Chloride 105 mmol/L (98-107); Eosinophils % (A) 0 %; Glucose 88 mg/dL (74-99); HCT 38.7 % (39.0-53.0); HGB 12.7 gm/dL (13.0-17.5); Lymphocytes # (A) 1.4 k/uL (1.0-4.8); Lymphocytes % (A) 6 %; MCH 32.1 pg (25.0-35.0); MCHC 32.8 g/dL (31.0-37.0); MCV 97.9 fL (80.0-100.0); Mean Platelet Volume 8.3; Monocytes # (A) 1.3 k/uL (0-1.0); Monocytes % (A) 5 %; Neutrophils # (A) 22.8 k/uL (1.3-7.7); Neutrophils % (A) 88 %; Platelet Count 128 k/uL (150-450); Potassium 3.9 mmol/L (3.5-5.1); RBC 3.95 m/uL (4.30-5.90); RDW 14.6 % (11.5-15.5); Sodium 143 mmol/L (137-145); Total Bilirubin 1.1 mg/dL (0.2-1.3); Total Protein 5.9 g/dL (6.3-8.2)
[2017-12-29 12:22] LABS: WBC 25.8 k/uL (3.8-10.6)
--- NOTE | 2017-12-29 14:34 | P.PN ---
Subjective Progress Note Date: 12/22/17 Progress note being dictated for Dr. Hui Bilateral leg weakness Interval history: Patient is a 87-year-old male with a known history of coronary artery disease, CABG 2 was on, hypertension and neutropenia currently on Neupogen shots every 2 weeks and also dementia and Parkinson's disease was brought to the hospital by his family with complaints of generalized weakness. Apparently patient could not climb up states yesterday and leaned onto the floor. No change in mental status from the baseline. Patient had difficulty walking and unable to feed by himself. Patient has been having cough for the past 2 days. Does not have any fever or chills. Patient felt clammy as per family. Patient was brought to the hospital for the evaluation by his family. Patient does not have any focal weakness. Patient does complain of pain with touching everywhere. No fever no chills noted. Family says that they could not able to take care of him at home. CT head showed no acute intracranial abnormality EKG showed sinus rhythm Chest x-ray showed cardiomegaly and no definitive air space disease. CPK 702 Troponin 0.047 WBC 26.9 12/26/2017 Patient is more awake and oriented today. Tolerating oral diet. Otherwise patient was started back on medications for Parkinson's disease. Patient has not been taking his medications at home currently. Which could be reason for bradykinesia, appreciate neurology recommendations.. No fever no chills. No other acute overnight issues. CT head is negative for any acute CVA. Patient denied any complaints of chest pain or shortness of breath. No nausea vomiting or abdominal pain. WBC count is normalized now. Patient was seen by cardiology. Troponin elevation is not consistent with acute [place]. Complete review of systems could not be obtained from the patient. Current medications reviewed. Active Medications Generic Name Dose Route Start Last Admin Trade Name Freq PRN Reason Stop Dose Admin Amlodipine Besylate 5 mg 12/26/17 09:00 12/26/17 08:09 Norvasc PO 5 mg DAILY SAMMI Administration Aspirin 81 mg 12/26/17 09:00 12/26/17 08:09 Aspirin PO 81 mg DAILY SAMMI Administration Carbidopa/Levodopa 1 each 12/26/17 16:00 12/26/17 20:47 Sinemet 10-100 PO 1 each TID SAMMI Administration Donepezil HCl 10 mg 12/25/17 21:00 12/26/17 20:46 Aricept PO 10 mg HS SAMMI Administration Filgrastim 480 mcg 12/28/17 12:00 Zarxio SQ TuFr@1200 SAMMI Heparin Sodium (Porcine) 5,000 unit 12/26/17 00:00 12/26/17 23:57 Heparin SQ 5,000 unit Q8HR SAMMI Administration Sodium Chloride 1,000 mls @ 100 mls/hr 12/25/17 15:15 12/26/17 20:47 Saline 0.9% IV 100 mls/hr .Q10H SAMMI Administration Memantine 5 mg 12/25/17 21:00 12/26/17 20:46 Namenda PO 5 mg BID SAMMI Administration Tamsulosin HCl 0.4 mg 12/26/17 09:00 12/26/17 08:09 Flomax PO 0.4 mg DAILY SAMMI Administration 12/27/2017 elevated d-dimer, VQ scan ordered. 2-D echo pending. Evaluated by physical therapy with subacute rehab recommended at discharge. at bedside, discussed subacute rehab, potential long-term rehab. 12/28/2017 VQ reported low probability of PE. Echo reporting mild concentric left ventricular hypertrophy, EF 55-60%, dilated aortic root 4.2 cm, IVC not well visualized. No overnight events. Awaiting placement. 12/29/2017 ambulating with walker with physical therapy. Subacute rehab placement pending-attempting to find alternate growth factor for myelodysplastic syndrome that would be less costly. Good appetite. Denies chest pain, palpitations or increasing shortness of breath. Maintaining O2 sats of 92% on room air. Objective - Vital Signs Vital signs: Vital Signs Temp 98.1 F 12/29/17 06:29 Pulse 82 12/29/17 06:29 Resp 16 12/29/17 06:29 BP 142/56 12/29/17 06:29 Pulse Ox 92 L 12/29/17 06:29 Intake & Output 12/28/17 12/29/17 12/29/17 18:59 06:59 18:59 Other: Voiding Method Diaper Diaper Diaper Incontinent # Voids 2 1 1 # Bowel Movements 1 1 - Exam PHYSICAL EXAMINATION: Patient is sitting up in chair, no acute distress, awake alert HEENT: Normocephalic. Neck is supple. Pupils reactive. Oral cavity is moist. Neck reveals no JVD, carotid bruits, or thyromegaly. CHEST EXAMINATION: Trachea is central. Symmetrical expansion. Lung christiansen clear to auscultation and percussion. CARDIAC: Normal S1, S2 with no gallops. No murmurs ABDOMEN: Soft. Bowel sounds normal. No organomegaly. No abdominal bruits. Extremities: reveal no edema. No clubbing or cyanosis Neurologically awake, alert and oriented 1. Able to move all his extremities. Motor and sensory intact. No focal deficits noted Skin: No rash or skin lesions. Psychiatric: Cooperative. Could not be assessed completely- dementia - Labs CBC & Chem 7: 12/29/17 11:48 12/29/17 11:48 Labs: Abnormal Lab Results - Last 24 Hours (Table) 12/29/17 12/29/17 12/29/17 Range/Units 09:17 09:17 11:48 WBC 31.2 H* 25.8 H* (3.8-10.6) k/uL RBC 4.14 L 3.95 L (4.30-5.90) m/uL Hgb 12.7 L (13.0-17.5) gm/dL Hct 38.7 L (39.0-53.0) % Plt Count 121 L 128 L (150-450) k/uL Neutrophils # 22.8 H (1.3-7.7) k/uL Neutrophils # (Manual) 25.80 H (1.3-7.7) k/uL Monocytes # 1.3 H (0-1.0) k/uL Monocytes # (Manual) 2.50 H (0-1.0) k/uL Glucose 100 H (74-99) mg/dL Total Protein (6.3-8.2) g/dL 12/29/17 Range/Units 11:48 WBC (3.8-10.6) k/uL RBC (4.30-5.90) m/uL Hgb (13.0-17.5) gm/dL Hct (39.0-53.0) % Plt Count (150-450) k/uL Neutrophils # (1.3-7.7) k/uL Neutrophils # (Manual) (1.3-7.7) k/uL Monocytes # (0-1.0) k/uL Monocytes # (Manual) (0-1.0) k/uL Glucose (74-99) mg/dL Total Protein 5.9 L (6.3-8.2) g/dL Microbiology - Last 24 Hours (Table) 12/25/17 15:18 Blood Culture - Preliminary Blood No Growth after 72 hours Assessment and Plan Assessment: Acute Generalized pain,possible Atypical chest pain, unable to determine in a patient with advanced Alzheimer's disease, history of CAD, CABG. Presented with elevated troponin; evaluated by cardiology, unlikely acute [place]. Increased weakness, gait dysfunction; suspect related to Parkinson's disease/ bradykinesia. Patient had been off of his Parkinson's medications and Sinemet resumed. CT head negative for acute abnormality. Elevated CPK with mild rhabdomyolysis Dementia and Parkinson's disease Hypertension uncontrolled [place] hyperlipidemia Chronic low white count on Neupogen injections every 2 weeks Leukocytosis on 26.9. With no signs of infection Previous history of smoking Elevated d-dimer, multifactorial, PE ruled out Plan: Continue current medication regime ,monitoring and symptomatic treatment. PT/OT. Maintain Strict aspiration precautions. Discharge planning in progress for subacute rehab., pending alternate growth factor. Further recommendations to follow. The impression and plan of care has been dictated as directed. : I performed a history and examination of this patient, discussed the same with the dictator. I agree with the dictator's note ,documented as a scribe. Any additional findings or plans will be noted.
[2017-12-29] MEDS: DONEPEZIL 10 MG TAB PO SCH (19:59)
[2017-12-29] MEDS ORDERED: HALOPERIDOL LACTATE 5 MG/ML 1 ML VIAL IM PRN (20:37)
[2017-12-29] MEDS: QUEtiapine 25 MG TAB PO SCH (21:06)
[2017-12-30] MEDS: TAMSULOSIN 0.4 MG CAP.ER.24H PO SCH (08:46)
[2017-12-30] MEDS: CARBIDOPA-LEVODOPA 10-100 MG 1 EACH TAB PO SCH ×3 (08:46→20:09)
[2017-12-30] MEDS: amLODIPine 5 MG TAB PO SCH (08:46)
[2017-12-30] MEDS: HEPARIN SODIUM,PORCINE 5,000 UNIT/ML 1 ML VIAL SQ SCH ×3 (08:46→20:10)
[2017-12-30] MEDS: MEMANTINE 5 MG TAB PO SCH ×2 (08:46→20:09)
[2017-12-30] MEDS: BACITRACIN 500 UNIT/GM OINT 28.4 GM TUBE TOPICAL SCH ×2 (08:46→20:09)
[2017-12-30] MEDS: ASPIRIN 81 MG PO SCH (08:46)
--- NOTE | 2017-12-30 16:25 | P.PN ---
Subjective Progress Note Date: 12/30/17 Progress note being dictated for Dr. Hui Bilateral leg weakness Interval history: Patient is a 87-year-old male with a known history of coronary artery disease, CABG 2 was on, hypertension and neutropenia currently on Neupogen shots every 2 weeks and also dementia and Parkinson's disease was brought to the hospital by his family with complaints of generalized weakness. Apparently patient could not climb up states yesterday and leaned onto the floor. No change in mental status from the baseline. Patient had difficulty walking and unable to feed by himself. Patient has been having cough for the past 2 days. Does not have any fever or chills. Patient felt clammy as per family. Patient was brought to the hospital for the evaluation by his family. Patient does not have any focal weakness. Patient does complain of pain with touching everywhere. No fever no chills noted. Family says that they could not able to take care of him at home. CT head showed no acute intracranial abnormality EKG showed sinus rhythm Chest x-ray showed cardiomegaly and no definitive air space disease. CPK 702 Troponin 0.047 WBC 26.9 12/26/2017 Patient is more awake and oriented today. Tolerating oral diet. Otherwise patient was started back on medications for Parkinson's disease. Patient has not been taking his medications at home currently. Which could be reason for bradykinesia, appreciate neurology recommendations.. No fever no chills. No other acute overnight issues. CT head is negative for any acute CVA. Patient denied any complaints of chest pain or shortness of breath. No nausea vomiting or abdominal pain. WBC count is normalized now. Patient was seen by cardiology. Troponin elevation is not consistent with acute [place]. Complete review of systems could not be obtained from the patient. Current medications reviewed. Active Medications Generic Name Dose Route Start Last Admin Trade Name Freq PRN Reason Stop Dose Admin Amlodipine Besylate 5 mg 12/26/17 09:00 12/26/17 08:09 Norvasc PO 5 mg DAILY SAMMI Administration Aspirin 81 mg 12/26/17 09:00 12/26/17 08:09 Aspirin PO 81 mg DAILY SAMMI Administration Carbidopa/Levodopa 1 each 12/26/17 16:00 12/26/17 20:47 Sinemet 10-100 PO 1 each TID SAMMI Administration Donepezil HCl 10 mg 12/25/17 21:00 12/26/17 20:46 Aricept PO 10 mg HS SAMMI Administration Filgrastim 480 mcg 12/28/17 12:00 Zarxio SQ TuFr@1200 SAMMI Heparin Sodium (Porcine) 5,000 unit 12/26/17 00:00 12/26/17 23:57 Heparin SQ 5,000 unit Q8HR SAMMI Administration Sodium Chloride 1,000 mls @ 100 mls/hr 12/25/17 15:15 12/26/17 20:47 Saline 0.9% IV 100 mls/hr .Q10H SAMMI Administration Memantine 5 mg 12/25/17 21:00 12/26/17 20:46 Namenda PO 5 mg BID SAMMI Administration Tamsulosin HCl 0.4 mg 12/26/17 09:00 12/26/17 08:09 Flomax PO 0.4 mg DAILY SAMMI Administration 12/27/2017 elevated d-dimer, VQ scan ordered. 2-D echo pending. Evaluated by physical therapy with subacute rehab recommended at discharge. at bedside, discussed subacute rehab, potential long-term rehab. 12/28/2017 VQ reported low probability of PE. Echo reporting mild concentric left ventricular hypertrophy, EF 55-60%, dilated aortic root 4.2 cm, IVC not well visualized. No overnight events. Awaiting placement. 12/29/2017 ambulating with walker with physical therapy. Subacute rehab placement pending-attempting to find alternate growth factor for myelodysplastic syndrome that would be less costly. Good appetite. Denies chest pain, palpitations or increasing shortness of breath. Maintaining O2 sats of 92% on room air. 12/30/2017 difficulty sleeping last night, increased confusion, Seroquel initiated. Ambulating with physical therapy in hallway with walker. Denies chest pain, palpitations or shortness of breath. Afebrile Objective - Vital Signs Vital signs: Vital Signs Temp 98.0 F 12/30/17 15:00 Pulse 70 12/30/17 15:00 Resp 17 12/30/17 15:00 BP 141/67 12/30/17 15:00 Pulse Ox 93 L 12/30/17 15:00 Intake & Output 12/29/17 12/30/17 12/30/17 18:59 06:59 18:59 Intake Total 225 600 Output Total 1 Balance 224 600 Weight 72.575 kg Intake: Oral 225 600 Output: Urine/Stool Mix 1 Other: Voiding Method Diaper Diaper Incontinent Incontinent # Voids 2 1 3 # Bowel Movements 1 1 0 - Exam PHYSICAL EXAMINATION: Patient is sitting up in chair, no acute distress, awake alert HEENT: Normocephalic. Neck is supple. Pupils reactive. Oral cavity is moist. Neck reveals no JVD, carotid bruits, or thyromegaly. CHEST EXAMINATION: Trachea is central. Symmetrical expansion. Lung christiansen clear to auscultation and percussion. CARDIAC: Normal S1, S2 with no gallops. No murmurs ABDOMEN: Soft. Bowel sounds normal. No organomegaly. No abdominal bruits. Extremities: reveal no edema. No clubbing or cyanosis Neurologically awake, alert and oriented 1. Able to move all his extremities. Motor and sensory intact. No focal deficits noted Skin: No rash or skin lesions. Psychiatric: Cooperative. Could not be assessed completely- dementia - Labs CBC & Chem 7: 12/29/17 11:48 12/29/17 11:48 Labs: Microbiology - Last 24 Hours (Table) 12/25/17 15:18 Blood Culture - Preliminary Blood No Growth after 96 hours Assessment and Plan Assessment: Acute Generalized pain,possible Atypical chest pain, unable to determine in a patient with advanced Alzheimer's disease, history of CAD, CABG. Presented with elevated troponin; evaluated by cardiology, unlikely acute [place]. Increased weakness, gait dysfunction; suspect related to Parkinson's disease/ bradykinesia. Patient had been off of his Parkinson's medications and Sinemet resumed. CT head negative for acute abnormality. Elevated CPK with mild rhabdomyolysis Dementia and Parkinson's disease Hypertension uncontrolled [place] hyperlipidemia Chronic low white count on Neupogen injections every 2 weeks Leukocytosis on 26.9. With no signs of infection Previous history of smoking Elevated d-dimer, multifactorial, PE ruled out Plan: Continue current medication regime ,monitoring and symptomatic treatment. PT/OT. Maintain Strict aspiration precautions. Discharge planning in progress for subacute rehab., pending placement. Further recommendations to follow. The impression and plan of care has been dictated as directed. : I performed a history and examination of this patient, discussed the same with the dictator. I agree with the dictator's note ,documented as a scribe. Any additional findings or plans will be noted.
[2017-12-30] MEDS: QUEtiapine 25 MG TAB PO SCH (20:09)
[2017-12-30] MEDS: DONEPEZIL 10 MG TAB PO SCH (20:09)
[2017-12-31] MEDS: HEPARIN SODIUM,PORCINE 5,000 UNIT/ML 1 ML VIAL SQ SCH ×2 (09:28→18:12)
[2017-12-31] MEDS: BACITRACIN 500 UNIT/GM OINT 28.4 GM TUBE TOPICAL SCH ×2 (09:28→20:58)
[2017-12-31] MEDS: CARBIDOPA-LEVODOPA 10-100 MG 1 EACH TAB PO SCH ×3 (09:29→20:58)
[2017-12-31] MEDS: ASPIRIN 81 MG PO SCH (09:29)
[2017-12-31] MEDS: TAMSULOSIN 0.4 MG CAP.ER.24H PO SCH (09:29)
[2017-12-31] MEDS: amLODIPine 5 MG TAB PO SCH (09:29)
[2017-12-31] MEDS: MEMANTINE 5 MG TAB PO SCH ×2 (09:29→20:58)
[2017-12-31] MEDS: FILGRASTIM-SNDZ 480 MCG/0.8 ML SYRINGE SQ SCH (13:28)
--- NOTE | 2017-12-31 16:36 | P.PN ---
Subjective Progress Note Date: 12/31/17 Progress note being dictated for Dr. Hui Bilateral leg weakness Interval history: Patient is a 87-year-old male with a known history of coronary artery disease, CABG 2 was on, hypertension and neutropenia currently on Neupogen shots every 2 weeks and also dementia and Parkinson's disease was brought to the hospital by his family with complaints of generalized weakness. Apparently patient could not climb up states yesterday and leaned onto the floor. No change in mental status from the baseline. Patient had difficulty walking and unable to feed by himself. Patient has been having cough for the past 2 days. Does not have any fever or chills. Patient felt clammy as per family. Patient was brought to the hospital for the evaluation by his family. Patient does not have any focal weakness. Patient does complain of pain with touching everywhere. No fever no chills noted. Family says that they could not able to take care of him at home. CT head showed no acute intracranial abnormality EKG showed sinus rhythm Chest x-ray showed cardiomegaly and no definitive air space disease. CPK 702 Troponin 0.047 WBC 26.9 12/26/2017 Patient is more awake and oriented today. Tolerating oral diet. Otherwise patient was started back on medications for Parkinson's disease. Patient has not been taking his medications at home currently. Which could be reason for bradykinesia, appreciate neurology recommendations.. No fever no chills. No other acute overnight issues. CT head is negative for any acute CVA. Patient denied any complaints of chest pain or shortness of breath. No nausea vomiting or abdominal pain. WBC count is normalized now. Patient was seen by cardiology. Troponin elevation is not consistent with acute [place]. Complete review of systems could not be obtained from the patient. Current medications reviewed. Active Medications Generic Name Dose Route Start Last Admin Trade Name Freq PRN Reason Stop Dose Admin Amlodipine Besylate 5 mg 12/26/17 09:00 12/26/17 08:09 Norvasc PO 5 mg DAILY SAMMI Administration Aspirin 81 mg 12/26/17 09:00 12/26/17 08:09 Aspirin PO 81 mg DAILY SAMMI Administration Carbidopa/Levodopa 1 each 12/26/17 16:00 12/26/17 20:47 Sinemet 10-100 PO 1 each TID SAMMI Administration Donepezil HCl 10 mg 12/25/17 21:00 12/26/17 20:46 Aricept PO 10 mg HS SAMMI Administration Filgrastim 480 mcg 12/28/17 12:00 Zarxio SQ TuFr@1200 SAMMI Heparin Sodium (Porcine) 5,000 unit 12/26/17 00:00 12/26/17 23:57 Heparin SQ 5,000 unit Q8HR SAMMI Administration Sodium Chloride 1,000 mls @ 100 mls/hr 12/25/17 15:15 12/26/17 20:47 Saline 0.9% IV 100 mls/hr .Q10H SAMMI Administration Memantine 5 mg 12/25/17 21:00 12/26/17 20:46 Namenda PO 5 mg BID SAMMI Administration Tamsulosin HCl 0.4 mg 12/26/17 09:00 12/26/17 08:09 Flomax PO 0.4 mg DAILY SAMMI Administration 12/27/2017 elevated d-dimer, VQ scan ordered. 2-D echo pending. Evaluated by physical therapy with subacute rehab recommended at discharge. at bedside, discussed subacute rehab, potential long-term rehab. 12/28/2017 VQ reported low probability of PE. Echo reporting mild concentric left ventricular hypertrophy, EF 55-60%, dilated aortic root 4.2 cm, IVC not well visualized. No overnight events. Awaiting placement. 12/29/2017 ambulating with walker with physical therapy. Subacute rehab placement pending-attempting to find alternate growth factor for myelodysplastic syndrome that would be less costly. Good appetite. Denies chest pain, palpitations or increasing shortness of breath. Maintaining O2 sats of 92% on room air. 12/30/2017 difficulty sleeping last night, increased confusion, Seroquel initiated. Ambulating with physical therapy in hallway with walker. Denies chest pain, palpitations or shortness of breath. Afebrile 12/31/2017 overnight events. Awaiting discharge to subacute rehab in a.m.Shuffles to bathroom, with walker and one person assist. Denies chest pain, palpitations or shortness of breath. Objective - Vital Signs Vital signs: Vital Signs Temp 98.1 F 12/31/17 05:50 Pulse 73 12/31/17 05:50 Resp 16 12/31/17 05:50 BP 151/68 12/31/17 05:50 Pulse Ox 93 L 12/31/17 05:50 Intake & Output 12/30/17 12/31/17 12/31/17 18:59 06:59 18:59 Intake Total 600 100 Balance 600 100 Weight 72.575 kg 72.575 kg Intake: Oral 600 100 Other: Voiding Method Diaper Diaper Incontinent Incontinent # Voids 3 1 2 # Bowel Movements 0 1 1 - Exam PHYSICAL EXAMINATION: Patient is sitting up , no acute distress, awake alert HEENT: Normocephalic. Neck is supple. Pupils reactive. Oral cavity is moist. Neck supple, no JVD. CHEST EXAMINATION: Trachea is central. Symmetrical expansion. Lung christians[place] clear to auscultation and percussion. CARDIAC: Normal S1, S2 with no gallops. No murmurs ABDOMEN: Soft. Bowel sounds normal. No organomegaly. No abdominal bruits. Extremities: reveal no edema. No clubbing or cyanosis Neurologically awake, alert and oriented 1. moves all 4 extremities. Motor and sensory intact. No focal deficits noted Skin: No rash or skin lesions. Psychiatric: Cooperative. Could not be assessed completely- dementia - Labs CBC & Chem 7: 12/29/17 11:48 12/29/17 11:48 Labs: Microbiology - Last 24 Hours (Table) 12/25/17 15:18 Blood Culture - Preliminary Blood No Growth after 120 hours Assessment and Plan Assessment: Acute Generalized pain,possible Atypical chest pain, unable to determine in a patient with advanced Alzheimer's disease, history of CAD, CABG. Presented with elevated troponin; evaluated by cardiology, unlikely acute [place]. Increased weakness, gait dysfunction; suspect related to Parkinson's disease/ bradykinesia. Patient had been off of his Parkinson's medications and Sinemet resumed. CT head negative for acute abnormality. Elevated CPK with mild rhabdomyolysis Dementia and Parkinson's disease Hypertension uncontrolled [place] hyperlipidemia Chronic low white count on Neupogen injections every 2 weeks Leukocytosis on 26.9. With no signs of infection Previous history of smoking Elevated d-dimer, multifactorial, PE ruled out Plan: Continue current medication regime ,monitoring and symptomatic treatment. Maintain supportive care. Discharge planning in progress for tomorrow to [facility], in am The impression and plan of care has been dictated as directed. : I performed a history and examination of this patient, discussed the same with the dictator. I agree with the dictator's note ,documented as a scribe. Any additional findings or plans will be noted.
[2017-12-31] MEDS: DONEPEZIL 10 MG TAB PO SCH (20:58)
[2017-12-31] MEDS: QUEtiapine 25 MG TAB PO SCH (20:58)
[2017-12-31 23:02] VITALS: RESP 16
[2018-01-01] MEDS: HEPARIN SODIUM,PORCINE 5,000 UNIT/ML 1 ML VIAL SQ SCH ×2 (00:34→09:14)
[2018-01-01 06:23] VITALS: BP 135/92; PULSE 76; TEMP 97.8
[2018-01-01] MEDS: TAMSULOSIN 0.4 MG CAP.ER.24H PO SCH (09:15)
[2018-01-01] MEDS: MEMANTINE 5 MG TAB PO SCH (09:15)
[2018-01-01] MEDS: BACITRACIN 500 UNIT/GM OINT 28.4 GM TUBE TOPICAL SCH (09:15)
[2018-01-01] MEDS: amLODIPine 5 MG TAB PO SCH (09:15)
[2018-01-01] MEDS: CARBIDOPA-LEVODOPA 10-100 MG 1 EACH TAB PO SCH (09:15)
[2018-01-01] MEDS: ASPIRIN 81 MG PO SCH (09:15)
--- NOTE | 2018-01-01 12:42 | DS ---
DISCHARGE SUMMARY DATE OF SERVICE: 01/01/2018. ADDENDUM: This 87-year-old gentleman who was admitted with generalized aches and pain as well as dementia and as well as also gait dysfunction. The patient is being sent to the rehab at this time. Currently on exam, vitals are stable. Cardiovascular: S1, S2. Abdomen soft. Nervous system: Diffusely weak. Please refer to my previous dictation for a list of diagnoses and list of medications. Total time taken 35 minutes. The patient is overall stable but prognosis guarded. MMODL / IJN: [id number] /
== END 2018-01-01 11:32 | DRG 57 ==
LOC: EC 10:41 → 4MS4W 15:13 → INTOOBSV 15:13 → 4MS4W 12-28 17:33 → OBSVTOIN 12-28 17:50
PROVIDERS: ADMIT Internal Medicine; ATTEND Internal Medicine
DX: G20 Parkinson's disease (principal); M62.82 Rhabdomyolysis; D70.9 Neutropenia, unspecified; D69.6 Thrombocytopenia, unspecified; E78.5 Hyperlipidemia, unspecified; K21.9 Gastro-esophageal reflux disease without esophagitis; D46.9 Myelodysplastic syndrome, unspecified; D72.829 Elevated white blood cell count, unspecified; F02.80 Dementia in other diseases classified elsewhere, unspecified severity, without behavioral disturbance, psychotic disturbance, mood disturbance, and anxiety; I45.10 Unspecified right bundle-branch block; I77.810 Thoracic aortic ectasia; I25.10 Atherosclerotic heart disease of native coronary artery without angina pectoris; N42.9 Disorder of prostate, unspecified; R26.2 Difficulty in walking, not elsewhere classified; R77.9 Abnormality of plasma protein, unspecified; I10 Essential (primary) hypertension; G47.9 Sleep disorder, unspecified; R52 Pain, unspecified; R63.3 Feeding difficulties; Z79.82 Long term (current) use of aspirin; Z95.1 Presence of aortocoronary bypass graft; Z87.891 Personal history of nicotine dependence; Z79.899 Other long term (current) drug therapy; Z88.8 Allergy status to other drugs, medicaments and biological substances; Z82.0 Family history of epilepsy and other diseases of the nervous system; Z82.49 Family history of ischemic heart disease and other diseases of the circulatory system
CPT/HCPCS: 36415; 51701; 70450; 71045; 71046; 78580; 80048; 80053; 80061; 81001; 82550; 82553; 83605; 83735; 84484; 85025; 85379; 85610; 85730; 87040; 87086; 93005; 93306; 94760; 96360; 96361; 99285